=== PATIENT | male | born 1955 | race Caucasian/White ===

== ENCOUNTER 2018-11-20 04:27 | Inpatient (IN) ==
--- NOTE | 2018-11-20 05:03 | PROVIDER DOCUMENTATION ---
HPI-Neurological Disorder - General Chief Complaint: Stroke-Like Symptoms Stated Complaint: Poss Stroke Time Seen by Provider: 11/20/18 04:28 Source: patient Allergies/Adverse Reactions: Patient Allergies Allergy/AdvReac Type Severity Reaction Status Date / Time No Known Allergies Allergy Verified 05/17/18 19:29 Home Medications: Home Medication List Medication Instructions Recorded Confirmed Last Taken Type Sertraline [Zoloft] 100 mg PO DAILY 03/01/13 05/17/18 06/24/17 07:00 History Citalopram Hydrobromide 20 mg PO DAILY 06/24/17 05/17/18 06/24/17 07:00 History [Citalopram HBr] Fenofibrate,Micronized 134 mg PO QHS 06/24/17 05/17/18 06/23/17 20:00 History [Fenofibrate] Fosinopril Sodium [Monopril] 40 mg PO BID 06/24/17 05/17/18 06/24/17 07:00 History Rosuvastatin Calcium [Crestor] 20 mg PO QHS 06/24/17 05/17/18 06/23/17 20:00 History Amlodipine [Norvasc] 5 mg PO DAILY 05/17/18 05/17/18 Unknown History - History of Present Illness-Neuro Onset/Duration: reports: 1 hour ago Timing: reports: improving, other (ALL DEFICITS NEARLY RESOLVED BY 0455) Context: reports: other (pt reports prior TIAs. nl at bedtime 9pm. awoke 0350 with right side weakness. paramedics report 0400 near flaccid weakness RUE,RLE,RIGHT OWER FACE and slurred speech. improved during transport.pt reports he is out of lisinopril per dr Urbina.). denies: recent/heavy alcohol intake Approximate time patient was last seen normal?: 21:00 Any recent trauma/injury?: reports: none Character of Deficits: reports: new weakness, impaired speech, decreased ability to walk New weakness or altered sensation location:: reports: RUE, RLE, right facial Cognitive Baseline: alert, oriented x3 Gait Baseline: walks without assistance Associated Symptoms: reports: denies symptoms, slurred speech Review of Systems - Adult - REVIEW OF SYSTEMS - ADULT Constitutional: reports: no symptoms reported. denies: chills, fever Eyes: reports: no symptoms reported Ears, Nose, Mouth & Throat: reports: no symptoms reported Cardiovascular: reports: no symptoms reported Respiratory: reports: no symptoms reported Gastrointestinal: reports: no symptoms reported Genitourinary: reports: no symptoms reported Musculoskeletal: reports: no symptoms reported Integumentary: reports: no symptoms reported Neurological: reports: see HPI Psychiatric: reports: no symptoms reported (bipoloar, doing well of Zoloft), other Endocrine: reports: no symptoms reported Hematologic/Lymphatic: reports: no symptoms reported Allergic/Immunologic: reports: no symptoms reported All Other Systems: Reviewed and Negative Past History - Adult - PAST MEDICAL HISTORY-ADULT Review of Records: reports: Old Records Reviewed, Nursing Assessment Review, Medications Reviewed, Social history reviewed & non-contributory. Major Childhood Illnesses: reports: denies history Cardiovascular: reports: HTN, hyperlipidemia Respiratory: reports: denies history Gastrointestinal: reports: denies history Obstetrical/Gynecological: reports: denies history Genitourinary: reports: denies history Musculoskeletal: reports: denies history Neurological: reports: TIA Endocrine/Immune: reports: denies history Other Conditions: reports: denies history Physical Exam- Neurological - Physical Exam-Neuro Initial Vital Signs Reviewed: Yes (htn, 173/ after back from CT) General Appearance: appears well, alert, no apparent distress Eye Exam: bilateral eye: normal inspection, PERRL HENMT: normocephalic/atraumatic, moist mucous membranes Head Injury: no evidence of injury Neck: non-tender, full range of motion, supple Respiratory: lungs clear, normal breath sounds Cardiovascular: regular rate, rhythm, no edema, no gallop, no JVD, no murmur Abdominal Exam: non tender, soft Extremity: normal range of motion, 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 negative: abnormal speech, facial droop Motor/Sensory: no motor deficit, no sensory deficit Neurologic: ladies suit operator II-XII nml as tested, grossly normal, no motor/sensory deficits Integumentary: normal color, normal turgor Psych/Mental Status: normal mood/affect, normal thought content, normal thought process, oriented x 3 - Glascow Coma Scale Best Eye Response: (4) open spontaneously Best Verbal Response: (5) oriented Best Motor Response: (6) obeys commands (15) Progress - PLAN OF CARE/RESULTS Progress/Plan/Lab Results: Vital Signs - 8 hr 03/21/19 05:14 11/20/18 06:17 11/20/18 06:31 Temperature 97.7 F 98.3 F Pulse Rate 79 80 Respiratory Rate 17 16 Blood Pressure 179/109 214/122 202/127 O2 Sat by Pulse Oximetry 97 95 Laboratory Results - last 24 hr 11/20/18 11/20/18 11/20/18 04:57 04:57 04:57 WBC 7.55 RBC 4.73 Hgb 14.5 Hct 44.0 MCV 93.0 MCH 30.7 MCHC 33.0 RDW Std Deviation 13.7 Plt Count 250 MPV 10.2 Neut % (Auto) 66.6 Lymph % (Auto) 22.6 Phillips % (Auto) 8.5 Eos % (Auto) 1.9 Baso % (Auto) 0.4 Neut # (Auto) 5.03 Lymph # (Auto) 1.71 Phillips # (Auto) 0.64 H Eos # (Auto) 0.14 Baso # (Auto) 0.03 PT 12.8 INR 0.89 PTT (Actin FS) 31.0 Sodium 143 Potassium 3.4 L Chloride 106 Carbon Dioxide 23 L Anion Gap 14 BUN 19 Creatinine 1.4 H Estimated GFR/1.73 m2 51 BUN/Creatinine Ratio 14 Glucose 108 H Calculated Osmolality 288 Calcium 9.2 Troponin T 11/20/18 04:57 WBC RBC Hgb Hct MCV MCH MCHC RDW Std Deviation Plt Count MPV Neut % (Auto) Lymph % (Auto) Phillips % (Auto) Eos % (Auto) Baso % (Auto) Neut # (Auto) Lymph # (Auto) Phillips # (Auto) Eos # (Auto) Baso # (Auto) PT INR PTT (Actin FS) Sodium Potassium Chloride Carbon Dioxide Anion Gap BUN Creatinine Estimated GFR/1.73 m2 BUN/Creatinine Ratio Glucose Calculated Osmolality Calcium Troponin T < 0.010 Orders Category Date Time Status Cardiac Monitoring DIRECTED Care 11/20/18 04:52 Active Saline Loc NOW Care 11/20/18 04:52 Active CHEST-PORTABLE [RAD] Stat Exams 11/20/18 04:[address] HEAD W/O CONTRAST [CT] Stat Exams 11/20/18 04:31 Taken BMP [BASIC METABOLIC PANEL] [CHEM] Stat Lab 11/20/18 04:57 Completed CBC WITH ELECTRONIC DIFF [HEME] Stat Lab 11/20/18 04:57 Completed PROTIME WITH INR [COAG] Stat Lab 11/20/18 04:57 Completed PTT [COAG] Stat Lab 11/20/18 04:57 Completed TROPONIN T Stat Lab 11/20/18 04:57 Completed URINALYSIS W/POSS RFLX CULT [URINALYSIS] Stat Lab 11/20/18 04:53 Uncollected 0.9% Sodium Chloride Inj [Ns] 1,000 ml Med 11/20/18 06:00 Active IV 999 mls/hr Aspirin Med 11/20/18 06:00 Discontinued 325 mg PO NOW ONE Hydralazine [Apresoline] Med 11/20/18 06:33 Discontinued 10 mg IV NOW ONE Metoprolol Succinate E.r. [Toprol Xl] Med 11/20/18 06:00 Discontinued 25 mg PO NOW ONE Potassium Chloride 20% Liquid Med 11/20/18 06:04 Discontinued 40 meq PO NOW ONE EKG [EKG] Stat Ther 11/20/18 04:52 Ordered Result Diagrams: 11/20/18 04:57 11/20/18 04:57 - REASSESSMENT Reassessment #1 Time Reassessed: 06:01 Status: improving (continues without neuro deficit for 1 hr now. displayed almost complete resolution all weakness by 0500. [facility]) - EKG 1 Time of EKG reading by physician:: 06:15 EKG Read and Signed by:: Ramiro Stern Rate: 73 MA Interval: normal ST Wave: non-specific ST changes Comments: NSR,LVH,Nonspecific T waves - XRAY 1 XRAY Study: Chest Comparison with other Films: no changes - CT/MRI 1 CT Study: Head Impression: See EMR Report Comparison with other Films: no changes - CONSULTS/PCP/HOSPITALIST Notification #1 *Consult/PCP/Hospitalist*: DR WHITE Consult Disposition: Admit Departure - Departure Date of Disposition Decision: 11/20/18 Time of Disposition Decision: 06:42 DIAGNOSIS: TIA (transient ischemic attack), Hypertension Disposition: ADMITTED INPATIENT 09 Certified Medical Emergency: Emergent Condition: Stable Referrals and Follow-Ups: Shravan Urbina Jr, MD [Primary Care Provider] - - Critical Care Note This patient required my direct & personal management of CC.: No Attestation - Physician/ ASAD Attestation Patient care was provided by Advanced Practice Provider:: No The physician spent face to face time with patient:: Yes Advanced Practice Provider documentation review:: Supervising physician onsite and consulted in the evaluation and care of this patient. The physician did have a face to face encounter with the patient. - NIH Stroke Scale Level of Consciousness: 0-Alert LOC Questions (ask month and age): 0-Answers Both Correctly Best Gaze (horizontal eye movement): 0-Normal Visual (use finger movement, counting or visual threat): 0-No Visual Loss Facial Palsy (show teeth or raise eyebrows & close eyes tght: 0-Symmetrical Movement Motor Function-left arm: 0-Normal Motor Function-right arm: 0-Normal Motor Function-left le-Normal Motor Function-right le-Normal Limb Ataxia([id number], or heel to givens): 0-No Ataxia Sensory(pin prick to face,arms,trunk,legs-compare side/side): 0-No Ataxia Best Language(name item/read sentence.Ex-Down to Earth): 0-No Aphasia Dysarthria(Pt read words or say words Ex.Mama,Tip-Top,Thanks: 0-Normal Articulation Extinction and Inattention: 0-Normal NIH Total Score: 0 ((NIH as described by EMS at 0400 =13))
[2018-11-20 05:14] LABS: BASO# 0.03 X1000 (0.0-0.2); BASO% 0.4 % (0.0-0.8); EOS# 0.14 X1000 (0.0-0.7); EOS% 1.9 % (0.0-10.0); HEMOGLOBIN 14.5 g/dL (14.0-18.0); LYMPH# 1.71 X1000 (1.2-3.4); LYMPH% 22.6 % (20.5-51.1); MCH 30.7 PG (27-31); MONO# 0.64 X1000 (0.11-0.59); MONO% 8.5 % (1.7-9.3); MPV 10.2 FL (7.4-10.4); NEUT# 5.03 X1000 (1.4-6.5); NEUT% 66.6 % (42.2-75.2); PLT 250 X1000 (130-400); RBC 4.73 XMIL (4.7-6.1); RDW 13.7 % (11.5-14.5); WBC 7.55 X1000 (4.8-10.8)
[2018-11-20 05:22] LABS: CALCIUM 9.2 mg/dL (8.8-10.2); CREATININE 1.4 mg/dL (0.7-1.2); POTASSIUM 3.4 mmol/L (3.5-5.1)
[2018-11-20 05:29] LABS: INR 0.89; PROTIME 12.8 Seconds (11.0-16.0)
[2018-11-20] MEDS ORDERED: NS 1,000 ML IV ONE (06:00)
[2018-11-20] MEDS ORDERED: TOPROL XL PO ONE (06:00)
[2018-11-20] MEDS ORDERED: ASPIRIN PO ONE (06:00)
[2018-11-20] MEDS ORDERED: POTASSIUM CHLORIDE 20% LIQUID PO ONE (06:04)
[2018-11-20] MEDS ORDERED: APRESOLINE IV ONE (06:33)
--- NOTE | 2018-11-20 06:48 | Diag Imaging Result Doc PS360 ---
CHEST-PORTABLE - 11/20/2018 INDICATION: TIA COMPARISON: 05/17/2018 FINDINGS: The lungs are normally expanded and clear. Heart size and mediastinal contours are normal. No pneumothorax or pleural effusion. IMPRESSION: Negative exam. Electronically signed by Maximiliano Bauman 11/20/2018 6:46 AM
--- NOTE | 2018-11-20 06:56 | Diag Imaging Result Doc PS360 ---
EXAM: CT HEAD W/O CONTRAST 11/20/2018 HISTORY: poss stroke TECHNIQUE: This exam was performed using automated exposure control, adjustment of mA or kV according to patient size, and/or use of iterative reconstruction technique. COMMENT: There are calcifications in the vertebral and internal carotid arteries bilaterally. There are calcifications and an epidermoid in the falx. This has not changed significantly since 08/25/2010. There are patchy lucencies present in the white matter of both hemispheres with a subcortical lucency in the left parietal lobe which is more conspicuous than on the previous examination. There are similar lucencies in the frontal lobes which were apparently present at the time the previous study. There is somewhat worsened subcortical lucency in the anterior insula on the left. There is no evidence of mass effect or abnormal extra-axial fluid collection. The calvarium is intact. The paranasal sinuses are clear. IMPRESSION: Chronic ischemic white matter changes which have progressed slightly since 2009. No definite evidence of acute disease. Further evaluation with MRI may be desirable in view of the chronic ischemic changes to exclude the possibility of a small acute infarct. Electronically signed by Shravan Regan 11/20/2018 6:54 AM
[2018-11-20 06:57] LABS: URINE SOURCE CLEAN CATCH
[2018-11-20 07:01] LABS: BILIRUBIN URINE NEGATIVE (NEGATIVE); BLOOD URINE NEGATIVE (NEGATIVE); COLOR YELLOW; GLUCOSE URINE NEGATIVE (NEGATIVE); KETONE URINE NEGATIVE (NEGATIVE); LEUKOCYTES URINE MODERATE (NEGATIVE); NITRITE URINE NEGATIVE (NEGATIVE); PROTEIN URINE 30 mg/dL (NEGATIVE); SP GRAVITY URINE 1.002; TURBIDITY URINE HAZY (CLEAR); UROBILINOGEN URINE 3 mg/dL (NORMAL)
[2018-11-20 07:03] LABS: UR EPITHELIAL CELLS <10 /HPF (<10); URINE BACTERIA 3+ /HPF; URINE RBC <10 /HPF (<10); URINE WBC TNTC /HPF (<10)
--- NOTE | 2018-11-20 07:05 | EKG Report ---
Test Performed on : 11/20/2018 04:59:50 AM Test Reason : POSSIBLE STROKE Blood Pressure : / mmHG Vent. Rate : 073 BPM Atrial Rate : 073 BPM P-R Int : 138 ms QRS Dur : 106 ms QT Int : 400 ms P-R-T Axes : 058 -02 112 degrees QTc Int : 440 ms Normal sinus rhythm. Minimal voltage criteria for LVH, may be normal variant Nonspecific T wave abnormality Abnormal ECG When compared with ECG of 18-MAY-2018 00:35, Nonspecific T wave abnormality has replaced inverted T waves in Inferior leads Unconfirmed Result
--- NOTE | 2018-11-20 10:08 | HISTORY AND PHYSICAL ---
CHIEF COMPLAINT: Speech problems and weakness on the right side of body/ PRESENT ILLNESS: The patient tells me he has been without his psych medicines for some time now and he was in the hotel last night and knows that he felt weird when he went to the bathroom, felt very strange, felt some numbness on the right side of his body. He was lightheaded and may have been hyperventilating. Also felt like there was some weakness on the right side of his face. This lasted for few minutes and went away and then reoccurred. He cannot tell me exact times or durations of this. It occurred again and he actually went down in the floor, says he could not move. He got over that, got better, called 911 and had a 3rd attack and was brought to the emergency room. Apparently was already getting better when he came to the emergency room and according to the emergency room records had no focal signs except for some facial droop on the right side and some abnormal speech. Blood pressure was elevated up to 214/122. PAST MEDICAL HISTORY: 1. Bipolar illness. 2. Hypertension. 3. The patient had some confusion even talking with me and giving me details so I can't release give all his past history right now. HOME MEDICINES (WHICH HE HAS BEEN OUT OF): 1. Amlodipine 5 mg daily. 2. Celexa 20 mg daily. 3. Fenofibrate 134 mg daily for hyperlipidemia. 4. Fosinopril 40 mg p.o. b.i.d. 5. Crestor 20 mg daily. 6. Also had him listed is Zoloft but I do not think he takes both Zoloft and Celexa. ALLERGIES: He has no known drug allergies. REVIEW OF SYSTEMS: It was difficult to get that under neurological did say had the numbness and weakness on the right side of his face initially. I do not see any now. He has had some frontal headache. He has been very nervous. I did ask the patient if he had any problems with chest pains, heart palpitations he said no. He has had heartburn under GI. He has had no diarrhea or constipation. Endocrine: Denies any thyroid problems, pituitary problems or diabetes. OBJECTIVE: Blood pressure at its highest was 214/122, respirations 16, pulse 81, temperature 98.3 degrees Fahrenheit. HEENT: Normocephalic. PERRLA. Throat clear. Fundi not seen well. Neck: Supple without thyromegaly, lymphadenopathy, carotid bruits. Lungs: Clear to auscultation and percussion without rhonchi, rales, or wheezes. Heart: Regular rate and rhythm without murmurs, gallops, or friction rubs. Abdomen: Soft. Active bowel sounds. No organomegaly or tenderness. External Genitalia/Rectal: Deferred. Lymph Nodes: Not palpable in cervical or supraclavicular areas. Neurological: Cranial nerves 2-12 are intact grossly. Absent Babinski's. LABORATORY: White count 7550. Chemistry profile normal except for potassium of 3.4. He did have moderate leukocytes on his urinalysis with white blood cells too numerous to count, so I do think he has got a urinary tract infection. We will make sure he gets cultured and will start oral antibiotics. I have consulted Neurology. CT scan of the head was unrevealing. DIAGNOSES: 1. Probable cerebrovascular accident. 2. Hyperventilation. 3. Urinary tract infection. 4. Hypertension uncontrolled. 5. Hypokalemia. PLAN: 1. We will do a CVA workup, have consulted Neurology. 2. We will start on IV antibiotics. 3. Please see orders. cc: Shravan Urbina Jr, MD
[2018-11-20] MEDS: ROCEPHIN 1 GM in NS 50 ML IV SCH ×2 (11:44→20:07)
[2018-11-20] MEDS: NORVASC PO SCH (11:45)
[2018-11-20] MEDS: MONOPRIL PO SCH ×2 (11:45→20:07)
[2018-11-20] MEDS: CELEXA PO SCH (11:46)
[2018-11-20] MEDS: KLOR-CON PO SCH (11:46)
--- NOTE | 2018-11-20 14:08 | CONSULTATION ---
DATE OF CONSULTATION: 11/20/2018 NEUROLOGY CONSULTATION: Mr. Dorsey is 63 years old, and he reports numbness in the right limbs and face beginning last night. He had gone to bed, feeling well. He got up in the night to go the bathroom and noticed numbness involving the right limbs and face. After he returned to bed, he had a sense that he could not move his right limbs. He attempted to get out of bed and fell. Initially, he reports being unable to crawl to the telephone, but eventually he got to the phone and called 911. He reports being aware his speech was slurred. When the paramedics arrived, he reports having trouble understanding some of what they said. Right- sided weakness improved and then was worse again and then began to improve again. By the time he was evaluated in the emergency room, he was much, much improved. He has not had any further deterioration, but believes he has not yet completely recovered to baseline. Vision was blurred, but there was no focal loss of visual field or diplopia. He did not lose consciousness. He had intense headache during this episode, and headache is improved now. He reports occasional intense headache, often associated with elevated blood pressure. At least once in the past, he believes he had brief period of right-sided numbness associated with intense headache, but he cannot tell me precisely when that occurred. There is no history of serious head injury. He has not had previous diagnosed stroke, seizure, or other neurologic event. He reports "heat stroke" as a young adult, and he believes that may have also caused weakness or numbness on the right side more than the left. He reports he stopped all of his medicines about 10 months ago. He denies illicit drug use. He denies recent significant ethanol use. He does smoke cigarettes. He presented this time with systolic blood pressures greater than 200. Recent hours show systolic blood pressures 140s. He has been afebrile. Lab showed some minor findings on chemistry profile, but nothing remarkable and nothing that would explain his neurologic problem. There is evidence of UTI. We do not have urine drug screen this admission. Noncontrast CT of the head on presentation showed scattered ischemic white matter changes bilaterally, reported to have progressed slightly since 2009 scan which is not available for my view. PHYSICAL EXAMINATION: On exam, Mr. Dorsey is awake, alert, attentive. He seems appropriate. Speech is not dysarthric now. Language function is intact on careful bedside testing of repeating, naming, comprehension, fluency, reading. I did not test handwriting. Memory is good. Head and neck are unremarkable. Visual [place] are full now, tested grossly by confrontational finger counting. Extraocular movements are full. He reports good pinprick appreciation on the left and right face. Facial motility is good bilaterally. The right nasolabial fold is a little bit less prominent than the left, but there is good lower facial motility bilaterally. Gag is intact. Tongue is midline. Shoulder shrug is good bilaterally. Strength is normal in the arms and legs. He did well on [id number] testing bilaterally. He did well on [id number] testing bilaterally. He reports equal pinprick and light touch appreciation over the right and left limbs. Proprioception is normal at the great toe MTP joint bilaterally. Reflexes are 2+ at the knees and ankles, 1+ at the wrists, all symmetric. Plantar response is silent bilaterally. I did not test his gait. IMPRESSION: Reported right-sided weakness and numbness with dysarthria and possible transient dysphasia. Vision disturbance is uncertain. He presented with intense headache and very high blood pressure. Risk factors for cerebrovascular ischemic event include age, cigarette smoking, and untreated hypertension. Negative CT is reassuring, but does not exclude acute ischemic infarction. Would consider MRI and plan carotid imaging with ultrasound or CT angiogram, also consider echocardiogram. He will need DVT prophylaxis until he is ambulatory. I would treat blood sugar aggressively, treat lipids aggressively, continue aspirin, treat blood pressure cautiously to maintain adequate systolic blood pressures until we get vascular workup reported. Thanks for asking Neurology to see Mr. Dorsey. cc: MD Shravan Hughes III, Jr, MD MTDD
[2018-11-20] MEDS: LOVENOX SUBQ SCH (17:19)
[2018-11-20] MEDS: TRICOR PO SCH (20:07)
[2018-11-20] MEDS: CRESTOR PO SCH (20:07)
--- NOTE | 2018-11-20 23:32 | ECHO REPORT ---
ORDER DATE: 11/20/2018 MEASUREMENTS: Septal thickness 1.3; left ventricular internal diameter in diastole 5.0; posterior wall thickness 1.3; aortic root 3.8; left atrium 5.5. SUMMARY: 1. Fair quality study. 2. The aortic valve is trileaflet and opens normally on 2-dimensional images. Mitral, tricuspid and pulmonic valves are without evidence of structural abnormality, with trace tricuspid regurgitation and trace pulmonic insufficiency. The aortic root is normal in size. 3. Normal left ventricular chamber size with mild concentric left ventricular hypertrophy demonstrated. Estimated left ventricular ejection fraction appears to be at least 60%. No regional wall abnormalities evident. Doppler suggests grade 1 left ventricular diastolic dysfunction. The left atrium is moderately enlarged. Right atrium and right ventricle are normal in size, with grossly preserved right ventricular systolic function. 4. No pericardial effusion. 5. Appearance of the inferior vena cava suggests normal central venous pressure. cc: MD Shravan Myers Jr, MD
[2018-11-21] MEDS: LOVENOX SUBQ SCH ×2 (05:31→16:27)
[2018-11-21] MEDS ORDERED: ASPIRIN PO ONE (08:30)
[2018-11-21] MEDS: KLOR-CON PO SCH (09:23)
[2018-11-21] MEDS: ROCEPHIN 1 GM in NS 50 ML IV SCH ×2 (09:23→21:11)
[2018-11-21] MEDS: CELEXA PO SCH (09:24)
[2018-11-21] MEDS: NORVASC PO SCH (09:24)
[2018-11-21] MEDS: MONOPRIL PO SCH ×2 (09:24→21:11)
--- NOTE | 2018-11-21 09:33 | PROGRESS NOTE ---
DATE: 11/21/2018 SUBJECTIVE: The patient says he just does not feel quite right yet. He does have a little weakness on the right side of his face. He says he feels weak in his right arm and his right leg. OBJECTIVE: Vital Signs: Blood pressure 134/88, respirations 18, pulse 59 and regular, 98.2 degrees Fahrenheit. HEENT: Normocephalic, except for a little weakness in the right side of his lower face. Neck: Supple. Lungs: Clear to auscultation and percussion without rhonchi, rales, or wheezes. Heart: Regular rate and rhythm without murmurs, gallops, friction rubs. Abdomen: Soft. Active bowel sounds. No organomegaly or tenderness. Neurological: Patient seems to have a little weakness on the right side of his body. DIAGNOSTICS: Echocardiogram was essentially normal. We will get an MRI scan of his brain, carotid flow studies, results are pending. ASSESSMENT: 1. Probable cerebrovascular accident. 2. Major depression, chronic. 3. Possible urinary tract infection. Urine culture was negative though he had white blood cells too numerous to count. Will repeat a urinalysis as he has been on some antibiotics. cc: Shravan Urbina Jr, MD
--- NOTE | 2018-11-21 10:52 | Diag Imaging Result Doc PS360 ---
EXAM: MRI BRAIN W/WO CONTRAST INDICATION: cva COMPARISON: CT head dated 11/20/2018. No prior brain MRIs available for comparison. FINDINGS: There is a small focus of restricted diffusion involving the posterior parietal lobe on the left in the subcortical white matter indicating an acute infarct. There is also increased signal on diffusion involving the putamen on the left as well as the caudate tail on the left. There is only slight corresponding low signal on the ADC map in the left putamen and left caudate regions suggesting an a late acute infarct/early subacute infarct. There is patchy T2/FLAIR hyperintensity in the periventricular and subcortical white matter suggesting moderate white matter microangiopathy. 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 This has been seen on previous CTs and is stable. There is an 8 mm enhancing nodule at the base of the brain just to the left of midline anteriorly abutting the gyrus rectus that can be seen on image 112 of series 10. This probably represents a small meningioma. There is no other discrete intracranial mass, mass effect, or intracranial hemorrhage. The surrounding soft tissues and bony structures are essentially unremarkable. IMPRESSION: 1.Recent lacunar infarcts involving the left parietal lobe, left putamen, and left caudate as described above. 2.Incidental pericallosal lipoma. 3.Small enhancing nodule at the base of the brain anteriorly as described that probably represents a tiny meningioma. Electronically signed by Francis Cook 11/21/2018 10:50 AM
--- NOTE | 2018-11-21 11:33 | PROGRESS NOTE ---
DATE: 11/21/2018 SUBJECTIVE: Mr. Dorsey reports no new problems. He believes the right- sided weakness is a little bit better. He is certain he is not completely recovered to baseline. He has not had more headaches. MRI scan shows 3 subcortical small areas of restricted diffusion in the left hemisphere consistent with his right sided deficit. Echocardiogram made no mention of source of embolus. Systolic blood pressures have been stable in the 130s, and he seems to be tolerating that level. Carotid ultrasound has been done with report pending. Further plans will depend on that report, and on his clinical course, but I expect he will continue to recover. I encouraged him to be aggressive with his physical therapy, and to make sure he takes his medicines as directed. Again, I encouraged him to quit smoking cigarettes. cc: MD Shravan Hughes III, Jr, MD MTDD
--- NOTE | 2018-11-21 14:42 | Carotid Study ---
DATE: 11/20/2018 PROCEDURE: Bilateral carotid ultrasound study. REQUESTING PHYSICIAN: Elizabeth Covarrubias. INTERPRETING PHYSICIAN: Toi Barraza MD. TECH: Pankaj. INDICATIONS: CVA. EQUIPMENT: Fileforceid E9 ultrasound system with a 9LD transducer. OBSERVED DATA RIGHT LEFT Brachial Blood Pressure Carotid Pulse Bruits: Carotid/Sub DIAGRAM OF ULTRASOUND IMAGING R L RIGHT INT EXT INT EXT LEFT Doroteo (cm/s) Doroteo (cm/s) Subclavian 94/0 Subclavian 140/0 CCA Proximal 77/20 CCA Proximal 94/26 CCA Distal 66/17 CCA Distal 72/22 Bulb 60/17 Bulb 75/21 ICA Proximal 52/12 ICA Proximal 52/15 ICA Mid 57/20 ICA Mid 73/24 ICA Distal 70/27 ICA Distal 63/22 ECA 99/23 ECA 79/21 Vertebral 60/13 A Vertebral 35/12 A ICA/CCA Ratio 0.91 ICA/CCA Ratio 0.78 % Stenosis 0-39% % Stenosis 0-39% FINDINGS: Minimal atherosclerosis, which at this time does not produce a hemodynamically significant flow-limiting stenosis. Both vertebral arteries are antegrade flow. PHYSICIAN INTERPRETATION: By strict velocity criteria, no hemodynamically significant flow- limiting stenosis. cc: MD Shravan Toscano Jr, MD
[2018-11-21] MEDS: TYLENOL PO PRN (17:00)
[2018-11-21 17:10] LABS: URINE SOURCE CLEAN CATCH
[2018-11-21 17:27] LABS: BILIRUBIN URINE NEGATIVE (NEGATIVE); BLOOD URINE NEGATIVE (NEGATIVE); COLOR YELLOW; GLUCOSE URINE NEGATIVE (NEGATIVE); KETONE URINE NEGATIVE (NEGATIVE); LEUKOCYTES URINE MODERATE (NEGATIVE); NITRITE URINE NEGATIVE (NEGATIVE); PROTEIN URINE 30 mg/dL (NEGATIVE); SP GRAVITY URINE 1.018; TURBIDITY URINE CLEAR (CLEAR); UROBILINOGEN URINE NORMAL (NORMAL)
[2018-11-21 17:28] LABS: UR EPITHELIAL CELLS <10 /HPF (<10); URINE BACTERIA NEGATIVE /HPF; URINE RBC <10 /HPF (<10); URINE WBC TNTC /HPF (<10)
[2018-11-21] MEDS: CRESTOR PO SCH (21:12)
[2018-11-21] MEDS: TRICOR PO SCH (21:12)
[2018-11-22] MEDS: LOVENOX SUBQ SCH ×2 (05:30→17:27)
[2018-11-22] MEDS: TYLENOL PO PRN ×2 (06:42→20:01)
--- NOTE | 2018-11-22 06:47 | PROGRESS NOTE ---
DATE: 11/22/2018 SUBJECTIVE: The patient says he does not feel any better. Still feels weak on the right side of his body. OBJECTIVE: Vital Signs: Blood pressure is 169/95, respirations 14, pulse 53, 97.6 degrees Fahrenheit. HEENT: Normocephalic. EOMS intact. PERRLA. Throat clear. Lungs: Clear to auscultation and percussion without rhonchi, rales, or wheezes. Heart: Regular rate and rhythm without murmurs, gallops, friction rubs. Abdomen: Soft. Active bowel sounds. No organomegaly or tenderness. I cannot really detect a much weakness in the right side of his body on exam but subjectively he says he is not as strong. Urine again shows WBCs too numerous to count. We will continue the antibiotics for right now even though his urine culture was negative initially. Another culture is pending. RADIOLOGY: MRI scan did show left-sided stroke consistent with the weakness in the right side of his body. ASSESSMENT: 1. CVA. 2. Depression. 3. Possible urinary tract infection. PLAN: Continue support. Start physical therapy. cc: Shravan Urbina Jr, MD
[2018-11-22 07:34] LABS: BASO# 0.04 X1000 (0.0-0.2); BASO% 0.6 % (0.0-0.8); EOS# 0.11 X1000 (0.0-0.7); EOS% 1.6 % (0.0-10.0); HEMATOCRIT 45.1 % (42.0-52.0); HEMOGLOBIN 14.5 g/dL (14.0-18.0); LYMPH# 2.08 X1000 (1.2-3.4); LYMPH% 30.4 % (20.5-51.1); MCHC 32.2 g/dL (33-37); MCV 93.4 FL (81-99); MONO# 0.56 X1000 (0.11-0.59); MONO% 8.2 % (1.7-9.3); MPV 10.6 FL (7.4-10.4); NEUT# 4.05 X1000 (1.4-6.5); NEUT% 59.2 % (42.2-75.2); PLT 249 X1000 (130-400); RBC 4.83 XMIL (4.7-6.1); RDW 13.4 % (11.5-14.5); WBC 6.84 X1000 (4.8-10.8)
[2018-11-22 08:00] LABS: CREATININE 1.3 mg/dL (0.7-1.2); POTASSIUM 3.9 mmol/L (3.5-5.1)
[2018-11-22] MEDS: KLOR-CON PO SCH (08:40)
[2018-11-22] MEDS: MONOPRIL PO SCH ×2 (08:41→20:01)
[2018-11-22] MEDS: CELEXA PO SCH (08:41)
[2018-11-22] MEDS: ROCEPHIN 1 GM in NS 50 ML IV SCH ×2 (08:41→20:01)
[2018-11-22] MEDS: NORVASC PO SCH (08:41)
[2018-11-22] MEDS: CRESTOR PO SCH (20:01)
[2018-11-22] MEDS: TRICOR PO SCH (20:01)
[2018-11-23] MEDS: LOVENOX SUBQ SCH ×2 (05:33→17:55)
[2018-11-23 07:15] LABS: BASO# 0.04 X1000 (0.0-0.2); BASO% 0.6 % (0.0-0.8); EOS% 1.4 % (0.0-10.0); HEMATOCRIT 45.7 % (42.0-52.0); HEMOGLOBIN 14.8 g/dL (14.0-18.0); LYMPH# 1.94 X1000 (1.2-3.4); LYMPH% 27.4 % (20.5-51.1); MCH 30.1 PG (27-31); MCHC 32.4 g/dL (33-37); MCV 92.9 FL (81-99); MONO# 0.56 X1000 (0.11-0.59); MONO% 7.9 % (1.7-9.3); MPV 10.4 FL (7.4-10.4); NEUT# 4.43 X1000 (1.4-6.5); NEUT% 62.7 % (42.2-75.2); PLT 250 X1000 (130-400); RBC 4.92 XMIL (4.7-6.1); RDW 13.1 % (11.5-14.5); WBC 7.07 X1000 (4.8-10.8)
[2018-11-23 07:53] LABS: AGAP 13; BUN 20 mg/dL (8-22); CALCIUM 8.7 mg/dL (8.8-10.2); CHLORIDE 106 mmol/L (98-107); COSMO 289; CREATININE 1.2 mg/dL (0.7-1.2); ESTIMATED GFR > 60; GLUCOSE 98 mg/dL (70-104); POTASSIUM 4.2 mmol/L (3.5-5.1); SODIUM 144 mmol/L (136-145); TCO2 25 mmol/L (25-35)
[2018-11-23] MEDS: ROCEPHIN 1 GM in NS 50 ML IV SCH ×2 (10:12→21:58)
[2018-11-23] MEDS: KLOR-CON PO SCH (10:13)
[2018-11-23] MEDS: MONOPRIL PO SCH ×2 (10:13→21:58)
[2018-11-23] MEDS: NORVASC PO SCH (10:13)
[2018-11-23] MEDS: CELEXA PO SCH (10:13)
--- NOTE | 2018-11-23 12:55 | PROGRESS NOTE ---
DATE: 11/23/2018 SUBJECTIVE: The patient states he still feels very weak. He appears scared. I asked him about that, and this has bothered him psychologically that he has had a stroke. He says he is just still so weak, and yet he got up and walked with a walker and did not drag his leg, and he is feeding himself with his right arm with a fork, so he has fine motor control. He seems to have good strength. Initially, he told me he just had tingling there and not quite so much weakness. I have tried to encourage him. His carotid flow studies did show some minimal plaque bilaterally, nothing hemodynamically significant. OBJECTIVE: Vital Signs: Blood pressure is 144/76, respirations 18, pulse 89, temperature 98 degrees Fahrenheit. HEENT: Normocephalic. EOMS intact. PERRLA. Throat clear. Lungs: Clear to auscultation and percussion without rhonchi, rales, or wheezes. Heart: Regular rate and rhythm without murmurs, gallops, or friction rubs. Abdomen: Soft with active bowel sounds. No organomegaly or tenderness. Neurological: Essentially intact. He says he feels subjectively weak on the right side of his body, though on physical exam, he appears fairly normal. ASSESSMENT: 1. Cerebrovascular accident. 2. Depression. 3. Peripheral vascular disease. PLAN: Continue treatment and physical therapy. cc: Shravan Urbina Jr, MD
[2018-11-23] MEDS: TRICOR PO SCH (21:58)
[2018-11-23] MEDS: TYLENOL PO PRN (21:58)
[2018-11-23] MEDS: CRESTOR PO SCH (21:58)
[2018-11-24] MEDS: LOVENOX SUBQ SCH ×2 (05:48→16:55)
[2018-11-24 07:30] LABS: BASO# 0.04 X1000 (0.0-0.2); BASO% 0.6 % (0.0-0.8); EOS# 0.09 X1000 (0.0-0.7); EOS% 1.4 % (0.0-10.0); HEMATOCRIT 46.2 % (42.0-52.0); HEMOGLOBIN 15.1 g/dL (14.0-18.0); LYMPH# 1.74 X1000 (1.2-3.4); LYMPH% 27.1 % (20.5-51.1); MCH 30.3 PG (27-31); MCHC 32.7 g/dL (33-37); MCV 92.6 FL (81-99); MONO# 0.48 X1000 (0.11-0.59); MONO% 7.5 % (1.7-9.3); MPV 10.4 FL (7.4-10.4); NEUT# 4.06 X1000 (1.4-6.5); NEUT% 63.4 % (42.2-75.2); PLT 251 X1000 (130-400); RBC 4.99 XMIL (4.7-6.1); RDW 13.2 % (11.5-14.5); WBC 6.41 X1000 (4.8-10.8)
[2018-11-24 07:48] LABS: CREATININE 1.3 mg/dL (0.7-1.2); POTASSIUM 4.2 mmol/L (3.5-5.1)
--- NOTE | 2018-11-24 09:01 | PROGRESS NOTE ---
DATE: 11/24/2018 SUBJECTIVE: The patient still feels weak on the right side of his body. Physical Therapy has been working with him. OBJECTIVE: Blood pressure is 149/83, respirations 20, pulse 55, and temperature 97.7 degrees Fahrenheit.HEENT: Normocephalic. EOMs intact. PERRLA. Throat clear. Lungs: Clear to auscultation and percussion without rhonchi, rales, or wheezes. Heart: Regular rate and rhythm without murmurs, gallops, or friction rubs. Abdomen: Soft. Active bowel sounds. No organomegaly or tenderness. Neurological: The patient is more alert today and less depressed appearing. He does seem to have a little weakness on the right side of his body that I can tell compared with the left side a little better today than previously. ASSESSMENT: 1. CVA. 2. Depression. PLAN: We will continue to work with physical therapy. We will consult [employer] for possible rehab placement. cc: Shravan Urbina Jr, MD
[2018-11-24] MEDS: CELEXA PO SCH (10:09)
[2018-11-24] MEDS: NORVASC PO SCH (10:10)
[2018-11-24] MEDS: MONOPRIL PO SCH ×2 (10:10→21:37)
[2018-11-24] MEDS: ROCEPHIN 1 GM in NS 50 ML IV SCH ×2 (10:10→21:37)
[2018-11-24] MEDS: KLOR-CON PO SCH (10:10)
[2018-11-24] MEDS: TRICOR PO SCH (21:37)
[2018-11-24] MEDS: CRESTOR PO SCH (21:37)
[2018-11-25] MEDS: LOVENOX SUBQ SCH ×2 (05:02→18:48)
[2018-11-25] MEDS: ROCEPHIN 1 GM in NS 50 ML IV SCH ×2 (08:28→21:38)
[2018-11-25] MEDS: CELEXA PO SCH (08:29)
[2018-11-25] MEDS: KLOR-CON PO SCH (08:29)
[2018-11-25] MEDS: NORVASC PO SCH (08:29)
[2018-11-25] MEDS: MONOPRIL PO SCH ×2 (08:29→21:38)
--- NOTE | 2018-11-25 09:25 | PROGRESS NOTE ---
DATE: 11/25/2018 SUBJECTIVE: The patient says he feels about the same. He still has some weakness on the right side of his body. This seems to be slight on examination but he can still tell a difference. OBJECTIVE: Vital signs: Blood pressure 130/76, respirations 18, pulse 51, temperature 97.6 degrees Fahrenheit, oxygen saturation is 95% on room air. HEENT: Normocephalic. EOMS intact. PERRLA. Throat clear. Lungs: Clear to auscultation and percussion without rhonchi, rales, or wheezes. Heart: Regular rate and rhythm without murmurs, gallops, friction rubs. Abdomen: Soft. Active bowel sounds. No organomegaly or tenderness. Neurological: The patient has slight weakness on the right side of his body. ASSESSMENT: Cerebrovascular accident. PLAN: Continue physical therapy. Working on rehab placement. cc: Shravan Urbina Jr, MD
[2018-11-25] MEDS: TRICOR PO SCH (21:38)
[2018-11-25] MEDS: CRESTOR PO SCH (21:38)
[2018-11-26] MEDS: LOVENOX SUBQ SCH ×2 (04:25→16:37)
--- NOTE | 2018-11-26 08:08 | EKG Report ---
Test Performed on : 11/26/2018 06:48:23 AM Test Reason : bradycardia Blood Pressure : / mmHG Vent. Rate : 049 BPM Atrial Rate : 049 BPM P-R Int : 166 ms QRS Dur : 106 ms QT Int : 470 ms P-R-T Axes : 058 013 138 degrees QTc Int : 424 ms Sinus bradycardia. Minimal voltage criteria for LVH, may be normal variant T wave abnormality, consider lateral ischemia Abnormal ECG When compared with ECG of 20-NOV-2018 04:59, (Unconfirmed) Vent. rate has decreased BY 24 BPM Unconfirmed Result
[2018-11-26] MEDS: CELEXA PO SCH (09:09)
[2018-11-26] MEDS: KLOR-CON PO SCH (09:09)
[2018-11-26] MEDS: NORVASC PO SCH (09:09)
[2018-11-26] MEDS: ROCEPHIN 1 GM in NS 50 ML IV SCH ×2 (09:09→22:29)
[2018-11-26] MEDS: MONOPRIL PO SCH ×2 (09:09→22:29)
--- NOTE | 2018-11-26 09:53 | PROGRESS NOTE ---
DATE: 11/26/2018 SUBJECTIVE: The patient says he just has not felt good; he has felt tired and sluggish. This is after a CVA. He has been somewhat bradycardic, but has been that way most the time since he has been in the hospital. Pulse rate got down to 49. EKG shows a sinus bradycardia. Otherwise is normal. He has had no chest pains or heart palpitations. I do not know whether this is contributed to his feeling sluggish or not. His blood pressure is good at this point. OBJECTIVE: Vital Signs: Blood pressure is 124/69, respirations 16, pulse 49, temperature 98.3 degrees Fahrenheit. Oxygen saturation is 99% on room air. HEENT: Normocephalic. EOMS intact. PERRLA. Throat clear. Lungs: Clear to auscultation and percussion without rhonchi, rales, or wheezes. Heart: Bradycardic without murmurs, gallops, or friction rubs. Neurologic exam: Still has a little weakness in the right side of his body. Physical therapy is working with him. ASSESSMENT: 1. Left hemisphere cerebrovascular accident with right-sided weakness. 2. Depression. 3. Bradycardia, which may be his normal. PLAN: We will get an echocardiogram. Working on rehab placement. Will check office notes to see if he has had this bradycardia in the past. cc: Shravan Urbina Jr, MD
--- NOTE | 2018-11-26 11:25 | PROGRESS NOTE ---
DATE: 11/26/2018 SUBJECTIVE: Mr. Dorsey reports continued slow improvement with his right- sided weakness. He has documented recent acute left hemisphere infarction on MRI. He reports he is making some progress with physical therapy, but reports he is still not walking well enough to feel good about his independence. OBJECTIVE: Neurologic: He is awake, alert, attentive. He seems to be in a little bit better spirits right now. Speech is not significantly dysarthric. Language function is intact. I cannot find definite weakness in the arms. He did well on [id number] testing. Visual [place] remain full on gross confrontational testing. I did not test his gait today. IMPRESSION: Recent dominant left hemisphere infarction, relatively pure motor right hemiparesis, stable and improving clinically. I do not have any new suggestions from a neurologic standpoint. I encouraged him to be aggressive with his physical therapy. I agree with Dr. Urbina' plans. I do not have anything to add today from a neurologic standpoint. Thanks for asking Neurology to see Mr. Dorsey. cc: MD Shraavn Hughes III, Jr, MD MTDD
[2018-11-26] MEDS: TRICOR PO SCH (22:29)
[2018-11-26] MEDS: CRESTOR PO SCH (22:29)
[2018-11-27] MEDS: LOVENOX SUBQ SCH ×2 (04:35→16:17)
[2018-11-27] MEDS: CELEXA PO SCH (08:49)
[2018-11-27] MEDS: KLOR-CON PO SCH (08:50)
[2018-11-27] MEDS: MONOPRIL PO SCH ×2 (08:50→21:33)
[2018-11-27] MEDS: ROCEPHIN 1 GM in NS 50 ML IV SCH ×2 (08:51→21:33)
[2018-11-27] MEDS: NORVASC PO SCH (08:51)
--- NOTE | 2018-11-27 09:20 | PROGRESS NOTE ---
DATE: 11/27/2018 SUBJECTIVE: The patient says he feels maybe a little stronger with his legs. He walked better yesterday. He still feels like he is weak on the right side of his body. OBJECTIVE: Vital Signs: Blood pressure 135/92, respirations 18, pulse 49, temperature 97.4 degrees Fahrenheit. Have looked back at old records, and he has had episodes before where in the office his pulse rate was around 50. I think this is probably his normal for the most part. Echocardiogram had been done earlier during his visit so we cancelled one yesterday, it was normal. He has had no symptoms with this. HEENT: Normocephalic. EOMs intact. PERRLA. Throat clear. Lungs: Clear to auscultation and percussion without rhonchi, rales, or wheezes. Heart: Regular rate and rhythm without murmurs, gallops, friction rubs. Abdomen: Soft. Active bowel sounds. No organomegaly or tenderness. Neurological: Has some subjective weakness on the right side of his body. If there is any weakness there, it is very slight on my examination. ASSESSMENT: 1. Cerebrovascular accident. 2. Bipolar illness. 3. Hypertension. PLAN: Working on rehab placement. Will continue physical therapy. cc: Shravan Urbina Jr, MD
[2018-11-27] MEDS: CRESTOR PO SCH (21:33)
[2018-11-27] MEDS: TRICOR PO SCH (21:33)
[2018-11-28] MEDS: LOVENOX SUBQ SCH (05:06)
[2018-11-28] MEDS: ROCEPHIN 1 GM in NS 50 ML IV SCH (09:22)
[2018-11-28] MEDS: CELEXA PO SCH (09:22)
[2018-11-28] MEDS: MONOPRIL PO SCH (09:23)
[2018-11-28] MEDS: KLOR-CON PO SCH (09:23)
[2018-11-28] MEDS: NORVASC PO SCH (09:23)
--- NOTE | 2018-11-28 10:30 | DISCHARGE SUMMARY ---
ADMISSION DATE: 11/20/2018 DISCHARGE DATE: 11/28/2018 Patient going to rehab. FINAL DIAGNOSIS: 1. Cerebrovascular accident affecting right side of body. 2. Bipolar illness. 3. Hyperlipidemia. 4. Hypertension. 5. Hypokalemia now resolved. PRESENT ILLNESS: The patient is a 63-year-old white male, came in with some speech problems and weakness on the right side of his body. The speech problems resolved fairly quickly. He had some numbness on the right side of his body and he perceives a little right-sided weakness, though this seems to be very minor at this time. It has been however constant since he has been in the hospital. Consultation was made with Dr. Zuniga, neurologist. MRI scan showed recent lacunar infarcts involving the left parietal lobe, left putamen, and left caudate. 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 The patient has continued to do well. Bipolar illness seems to be under good control with his medications. PHYSICAL EXAMINATION: Vital signs show pulse of 48. He has been bradycardic in the past and has not had any hypotension with this. Blood pressure is 146/63, respirations 16, temperature 97.5 degrees Fahrenheit, oxygen saturation is 99% on room air. HEENT: Normocephalic. EOMs intact. PERRLA. Throat clear. Lungs: Clear to auscultation and percussion without rhonchi, rales, or wheezes. Heart: Regular rate and rhythm without murmurs, gallops, or friction rubs, just sinus bradycardia. Abdomen: Soft with active bowel sounds. No organomegaly or tenderness. Neurological: Exam intact grossly. He perceives a little weakness on the right side of his body. His right lug loader is about the same as his left but he is right handed and probably was generally a little stronger on that side before. MEDICATIONS: Will discharge on his Tricor 145 mg daily, Crestor 20 mg at bedtime, amlodipine 5 mg daily, Celexa 20 mg at bedtime, fosinopril 40 mg at bedtime, and will put him on an adult size aspirin 325 mg daily. Will go to rehab, and I will see him when he gets out of rehab. cc: Shravan Urbina Jr, MD
[2018-11-28 14:08] VITALS: BP 136/78
== END 2018-11-28 15:12 | DRG 65 ==
LOC: SUPCPDRO → ED 04:27 → 3N 08:08
PROVIDERS: ADMIT Emergency Medicine; ATTEND Emergency Medicine
CPT/HCPCS: 70450; 70553; 71010; 71045; 80048; 81001; 82607; 84484; 85025; 85610; 85651; 85730; 87088; 93005; 93010; 93306; 93880; 96374; 97116; 97162; 97530; 99285; A9270; A9579; C8929; J0360; J0696; J1650; J7030; Q9957

== ENCOUNTER 2019-04-25 15:39 | Inpatient (IN) ==
[2019-04-25] MEDS ORDERED: NS 1,000 ML IV ONE ×2 (15:54→19:05)
--- NOTE | 2019-04-25 16:10 | Diag Imaging Result Doc PS360 ---
CHEST-PORTABLE - 04/25/2019 INDICATION: chest pain COMPARISON: 11/20/2018 FINDINGS: The lungs are normally expanded and clear. Heart size and mediastinal contours are normal. No pneumothorax or pleural effusion. IMPRESSION: Negative exam. Electronically signed by Maximiliano Bauman 04/25/2019 4:07 PM
[2019-04-25 16:13] LABS: BASO# 0.03 X1000 (0.0-0.2); BASO% 0.3 % (0.0-0.8); EOS# 0.14 X1000 (0.0-0.7); EOS% 1.3 % (0.0-10.0); HEMATOCRIT 45.6 % (42.0-52.0); HEMOGLOBIN 15.8 g/dL (14.0-18.0); LYMPH% 25.2 % (20.5-51.1); MCH 30.9 PG (27-31); MCHC 34.6 g/dL (33-37); MCV 89.2 FL (81-99); MONO# 0.91 X1000 (0.11-0.59); MONO% 8.5 % (1.7-9.3); MPV 10.8 FL (7.4-10.4); NEUT# 6.94 X1000 (1.4-6.5); NEUT% 64.7 % (42.2-75.2); PLT 291 X1000 (130-400); RBC 5.11 XMIL (4.7-6.1); WBC 10.72 X1000 (4.8-10.8)
[2019-04-25 16:30] LABS: ALB/GLOB RATIO 1.6; ALBUMIN 4.6 g/dL (3.5-5.0); CALCIUM 9.4 mg/dL (8.8-10.2); CREATININE 2.8 mg/dL (0.7-1.2); POTASSIUM 3.5 mmol/L (3.5-5.1); TOTAL BILIRUBIN 0.92 mg/dL (0.20-1.00); TOTAL PROTEIN 7.4 g/dL (6.3-8.3)
--- NOTE | 2019-04-25 17:03 | EKG Report ---
Test Performed on : 04/25/2019 3:38:02 PM Test Reason : chest pain Blood Pressure : / mmHG Vent. Rate : 063 BPM Atrial Rate : 063 BPM P-R Int : 150 ms QRS Dur : 106 ms QT Int : 406 ms P-R-T Axes : 056 -11 103 degrees QTc Int : 415 ms Normal sinus rhythm. Minimal voltage criteria for LVH, may be normal variant T wave abnormality, consider lateral ischemia Abnormal ECG When compared with ECG of 26-NOV-2018 06:48, T wave inversion less evident in Lateral leads Unconfirmed Result
[2019-04-25 17:40] LABS: CK INDEX 1.4 (0.0-2.5); CK-MB 10.5 ng/mL (0.0-5.0)
--- NOTE | 2019-04-25 18:49 | EKG Report ---
Test Performed on : 04/25/2019 6:33:18 PM Test Reason : chest pain Blood Pressure : / mmHG Vent. Rate : 067 BPM Atrial Rate : 067 BPM P-R Int : 166 ms QRS Dur : 100 ms QT Int : 422 ms P-R-T Axes : 040 -20 073 degrees QTc Int : 445 ms Normal sinus rhythm. Minimal voltage criteria for LVH, may be normal variant Borderline ECG When compared with ECG of 25-APR-2019 15:38, (Unconfirmed) No significant change was found Unconfirmed Result
--- NOTE | 2019-04-25 18:54 | PROVIDER DOCUMENTATION ---
This chart was entered by Bryan Maynard Scribe, acting as scribe for Calvin Mccormack DO. HPI-Chest Pain - General Stated Complaint: DIZZINESS, CP Time Seen by Provider: 04/25/19 15:53 Source: patient, EMS Allergies/Adverse Reactions: Patient Allergies Allergy/AdvReac Type Severity Reaction Status Date / Time No Known Allergies Allergy Verified 05/17/18 19:29 Home Medications: Home Medication List Medication Instructions Recorded Confirmed Last Taken Type Amlodipine [Norvasc] 5 mg PO DAILY tab 11/28/18 Unknown Rx Aspirin/Calcium Carbonate/Mag 325 mg PO DAILY #30 tab 11/28/18 Unknown Rx [Aspirin Buffered 325 mg Tab] Citalopram [Celexa] 20 mg PO DAILY tab 11/28/18 Unknown Rx FOSINOpril [Monopril] 40 mg PO BID tab 11/28/18 Unknown Rx Fenofibrate [Tricor] 145 mg PO QHS tab 11/28/18 Unknown Rx ROSUVAstatin [Crestor] 20 mg PO QHS tab 11/28/18 Unknown Rx - History of Present Illness-CP Nature of Presenting Problem: 64 yowm presents to the ED v/a EMS with c/o dizziness, chest pains and shortness of breath. Pt states being at [employer] , pt was walking around and someone telling him he doesn't look good , looks pale. pt states seeing " fuzzy things" then feeling dizzy. pt states when he tries to get up he feels dizzy. pt states having a stroke in october effecting his right side and a heart attack in 1981 while at work. pt states leg swelling when walking a lot. Location: reports: substernal, epigastric Chest Pain Radiation: reports: no radiation Quality of Pain: reports: cramping Severity in ED: mild Onset/Duration: 1 hour ago Timing: still present, intermittent Context/Activities at Onset: reports: light activity Modifying Factors: worse with: movement Associated Symptoms: reports: dizziness, shortness of breath. denies: headache, nausea, vomiting Prior Chest Pain/Cardiac Workup: reports: heart attack (1981) Similar Symptoms Previously?: No Recently Seen Here or By Another Healthcare Provider: No Review of Systems - Adult - REVIEW OF SYSTEMS - ADULT Constitutional: reports: no symptoms reported Eyes: reports: no symptoms reported Ears, Nose, Mouth & Throat: reports: no symptoms reported Cardiovascular: reports: see HPI, chest pain. denies: palpitations, syncope Respiratory: reports: no symptoms reported, shortness of breath. denies: chronic cough, cough Gastrointestinal: reports: no symptoms reported Genitourinary: reports: no symptoms reported Musculoskeletal: reports: no symptoms reported Integumentary: reports: no symptoms reported Neurological: reports: dizziness/vertigo. denies: slurred speech, syncope Psychiatric: reports: no symptoms reported Endocrine: reports: no symptoms reported Hematologic/Lymphatic: reports: no symptoms reported Allergic/Immunologic: reports: no symptoms reported All Other Systems: Reviewed and Negative Past History - Adult - PAST MEDICAL HISTORY-ADULT Review of Records: reports: Old Records Reviewed, Nursing Assessment Review, Medications Reviewed, Social history reviewed & non-contributory. Major Childhood Illnesses: reports: denies history Cardiovascular: reports: HTN, hyperlipidemia Respiratory: reports: denies history Gastrointestinal: reports: denies history Obstetrical/Gynecological: reports: denies history Genitourinary: reports: denies history Musculoskeletal: reports: denies history Neurological: reports: TIA Psychiatric: reports: bipolar Endocrine/Immune: reports: denies history Other Conditions: reports: denies history - IMMUNIZATION STATUS Childhood Immunizations: See Nurse Assessment Flu Vaccine: See Nurse Assessment - FAMILY HISTORY Family History: reviewed, not pertinent - SOCIAL HISTORY Smoking: cigarettes, less than 1 pack/day Provider spent 3-5 mins advising pt. on dangers of tobacco.: Discussed manners to quit use, and f/u contacts for add'l counseling. Substance Use: denies Living Situation: alone Physical Exam-General - PHYSICAL EXAM-ADULT Initial Vital Signs Reviewed: Yes - CONSTITUTIONAL General Appearance: appears well, alert, no apparent distress. negative: lethargic, slow to respond - EYES Eyes: PERRL/EOMI, pink conjunctivae - HEAD, EARS, NOSE, MOUTH & THROAT HENMT: moist mucous membranes - NECK Neck: non-tender, full range of motion - RESPIRATORY Respiratory: lungs clear, normal breath sounds - CARDIOVASCULAR Cardiovascular: normal peripheral pulses, regular rate, rhythm - GASTROINTESTINAL (ABDOMEN) Abdominal Exam: normal bowel sounds, non tender, soft - LYMPHATIC Lymphatic: no adenopathy - MUSCULOSKELETAL Back Exam: normal inspection, no CVA tenderness Extremity: normal range of motion, non-tender - SKIN Integumentary: normal color, normal turgor, warm/dry - NEUROLOGIC Neurologic: grossly normal - PSYCHIATRIC Psych/Mental Status: normal mood/affect, normal thought content, normal thought process, oriented x 3 - HEART Score HEART Score: History: Highly Suspicious HEART Score: ECG: Significant ST-Deviation HEART Score: Age: > or = 65 Years HEART Score: Risk Factors for Atherosclerotic Disease: > or = 3 Risk Factors or History of Atherosclerotic Disease HEART Score: Troponin: < or = Normal Limit Total HEART Score:: 8 Progress - PLAN OF CARE/RESULTS Progress/Plan/Lab Results: Vital Signs - 8 hr 04/25/19 15:53 04/25/19 17:37 Temperature 97.7 F Pulse Rate 63 Respiratory Rate 18 Blood Pressure 91/70 O2 Sat by Pulse Oximetry 96 98 Laboratory Results - last 24 hr 04/25/19 04/25/19 04/25/19 16:00 16:00 16:00 WBC RBC Hgb Hct MCV MCH MCHC RDW Std Deviation Plt Count MPV Immature Gran % (Auto) Neut % (Auto) Lymph % (Auto) [place] % (Auto) Eos % (Auto) Baso % (Auto) Immature Gran # (Auto) Neut # (Auto) Lymph # (Auto) [place] # (Auto) Eos # (Auto) Baso # (Auto) Sodium 139 Potassium 3.5 Chloride 102 Carbon Dioxide 23 L Anion Gap 14 BUN 32 H Creatinine 2.8 H Estimated GFR/1.73 m2 23 BUN/Creatinine Ratio 11 Glucose 119 H Calculated Osmolality 286 Calcium 9.4 Total Bilirubin 0.92 AST 32 ALT 36 Alkaline Phosphatase 73 Creatine Kinase 749 H Creatine Kinase Index 1.4 CK-MB (CK-2) 10.50 H Troponin T < 0.010 Total Protein 7.4 Albumin 4.6 Globulin 2.8 Albumin/Globulin Ratio 1.6 04/25/19 04/25/19 04/25/19 16:00 18:14 18:14 WBC 10.72 RBC 5.11 Hgb 15.8 Hct 45.6 MCV 89.2 MCH 30.9 MCHC 34.6 RDW Std Deviation 13.0 Plt Count 291 MPV 10.8 H Immature Gran % (Auto) 0.0 Neut % (Auto) 64.7 Lymph % (Auto) 25.2 [place] % (Auto) 8.5 Eos % (Auto) 1.3 Baso % (Auto) 0.3 Immature Gran # (Auto) 0.00 Neut # (Auto) 6.94 H Lymph # (Auto) 2.70 [place] # (Auto) 0.91 H Eos # (Auto) 0.14 Baso # (Auto) 0.03 Sodium Potassium Chloride Carbon Dioxide Anion Gap BUN Creatinine Estimated GFR/1.73 m2 BUN/Creatinine Ratio Glucose Calculated Osmolality Calcium Total Bilirubin AST ALT Alkaline Phosphatase Creatine Kinase 662 H Creatine Kinase Index CK-MB (CK-2) Troponin T < 0.010 Total Protein Albumin Globulin Albumin/Globulin Ratio Orders Category Date Time Status Admit - [facility] Routine AdmDCTranf 04/25/19 19:05 Active Activity - Bed Rest with BRP ORDERED Care 04/25/19 19:05 Active Call Admitting on Arrival AT ADMISSION Care 04/25/19 19:07 Active Resuscitation Status Routine Care 04/25/19 19:05 Ordered Vital Signs Order ARRIVAL TO ROOM Care 04/25/19 19:05 Active Z-Document. for Tele Applied ORDERED Care 04/25/19 19:08 Active Heart Healthy Diet Diet 04/26/19 00:01 Active CHEST-PORTABLE [RAD] Stat Exams 04/25/19 15:53 Completed CBC WITH ELECTRONIC DIFF [HEME] Stat Lab 04/25/19 16:00 Completed CK PROFILE [SP CHEM] Stat Lab 04/25/19 16:00 Completed CK PROFILE [SP CHEM] Stat Lab 04/25/19 18:14 Results CK PROFILE [SP CHEM] Stat Lab 04/25/19 19:09 Ordered COMPREHENSIVE METABOLIC PANEL [CHEM] Stat Lab 04/25/19 16:00 Completed TROPONIN T Stat Lab 04/25/19 16:00 Completed TROPONIN T Stat Lab 04/25/19 18:14 Completed TROPONIN T Stat Lab 04/25/19 19:09 Ordered 0.9% Sodium Chloride Inj [Ns] 1,000 ml Med 04/25/19 19:05 Active IV 100 mls/hr 0.9% Sodium Chloride Inj [Ns] 1,000 ml Med 04/25/19 15:54 Active IV 250 mls/hr Morphine Med 04/25/19 19:05 Ordered 2 mg IV Q2H PRN PRN Ondansetron [Zofran] Med 04/25/19 19:05 Ordered 4 mg IV Q4H PRN PRN Telemetry [OM.EQ] Routine Oth 04/25/19 19:05 Active EKG [EKG] Stat Ther 04/25/19 15:52 Ordered EKG [EKG] Stat Ther 04/25/19 18:00 Draft Transfer/Admit Order [TRANSFER] Routine Transfer 04/25/19 19:10 Ordered Result Diagrams: 04/25/19 16:00 04/25/19 16:00 - REASSESSMENT Reassessment #1 Time Reassessed: 16:37 Status: improving (no chest pain) Reassessment #2 Time Reassessed: 18:02 (no chest pain) Status: unchanged - EKG 1 Time of EKG reading by physician:: 15:38 EKG Read and Signed by:: Calvin Mccormack EKG Interpretation (*Must complete 3 of following elements*): Abnormal Rate: 63 Rhythm: NSR [place]: normal QRS: other (minimal voltage criteria for LVH, may be normal variant) [place] Interval: normal ST Wave: normal Comments: T wave abnormality, consider lateral ischemia 2 Time of EKG reading by physician:: 18:41 EKG Read and Signed by:: Calvin Mccormack EKG Interpretation (*Must complete 3 of following elements*): Abnormal Rate: 67 Rhythm: sinus [place]: normal QRS: other (possible LVH) [place] Interval: normal - XRAY 1 XRAY Study: Chest Impression: See EMR Report (CHEST-PORTABLE - 04/25/2019 INDICATION: chest pain COMPARISON: 11/20/2018 FINDINGS: The lungs are normally expanded and clear. Heart size and mediastinal contours are normal. No pneumothorax or pleural effusion. IMPRESSION: Negative exam. Electronically signed by Maximiliano Bauman 04/25/2019 4:07 PM 04/25/19 1607 Interpreting Physician: Maximiliano Bauman MD Dictated Date/Time: 04/25/19 1607 cc: Calvin Mccormack DO; Shravan Urbina Jr, MD) - CONSULTS/PCP/HOSPITALIST Notification #1 *Consult/PCP/Hospitalist*: Quin Time Discussed: 18:22 (admit to Dr Hardy) Reason/Comments: Will Consult Disposition: Will see in ED, other (Dr Desai patient need to contact his coverage) #2 Consult: Dr Light Time Discussed: 18:51 (Consult cardiology may need to go to [place]) Departure - Departure Date of Disposition Decision: 04/25/19 Time of Disposition Decision: 19:11 DIAGNOSIS: Chest pain Disposition: ADMITTED INPATIENT 09 Certified Medical Emergency: Emergent Condition: Fair Referrals and Follow-Ups: Shravan Urbina Jr, MD [Primary Care Provider] - - Critical Care Note This patient required my direct & personal management of CC.: No Attestation - Physician/ ASAD Attestation Patient care was provided by Advanced Practice Provider:: No The physician spent face to face time with patient:: Yes Advanced Practice Provider documentation review:: Supervising physician onsite and consulted in the evaluation and care of this patient. The physician did have a face to face encounter with the patient. This chart was documented by the indicated scribe, (Bryan Maynard, Janet) and accurately reflects the services I performed and decisions made by , Calvin Mccormack DO, as attested by the provider's signature.
[2019-04-25 19:42] LABS: CK INDEX 1.4 (0.0-2.5); CK-MB 9.1 ng/mL (0.0-5.0)
--- NOTE | 2019-04-25 21:26 | HISTORY AND PHYSICAL ---
CHIEF COMPLAINT: Chest pain. PRESENT ILLNESS: This is the first recent [facility] admission for this 64-year-old white man with substernal chest tightness and pain a couple of hours before presentation to the emergency room. He was at [facility] [employer] [facility] [employer] and was picked up by ambulance and brought to the emergency room. In route, he received 4 chewable aspirin tablets. He was evaluated by Dr. Mccormack in the emergency room and EKGs and enzymes were done. There was elevation in CPK and mild elevation in MB fraction, but troponin was normal. Discussion was made with Dr. Mccormack and Dr. Ramos was contacted who felt that he could be admitted to [facility] and then determine whether he needs to go to [place] rather than going directly to [place]. He had a heart attack in 1982, but no arteriogram following that episode. He had a stroke in October of this year. Brain MRI revealed recent lacunar infarcts involving the left parietal, left putamen and left caudate. 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 Echocardiogram revealed ejection fraction of 60%, trace tricuspid regurgitation, and trace pulmonic insufficiency. There was grade 1 left ventricular diastolic dysfunction. There were no regional wall abnormalities. There was grossly preserved right ventricular systolic function. Carotid ultrasound was done also and showed no hemodynamically significant lesions. He states that the pain has eased up over the last couple of hours since being in the hospital, but is still present. There is no significant discomfort with deep respiration. He has had no similar pain over the last few weeks. He has been out of his Crestor recently, but has been taking fenofibrate. There is no history of recent surgery. PRESENT MEDICATIONS: Fenofibrate 145 mg at bedtime, amlodipine 5 mg daily, aspirin 325 mg 1 daily, Celexa 20 mg daily, Monopril 40 mg b.i.d. ALLERGIES: None known. REVIEW OF SYSTEMS: No significant decrease in exercise tolerance over the past few months. There is history of hiatal hernia. He was not belching or having indigestion type pain today. When asked if his pain was similar to that when he had a heart attack in 1982, he said the pain today was worse. SOCIAL HISTORY: He is a . He stopped smoking in October after his stroke. He states that he had some left-sided arm weakness following the stroke, even though the report said left-sided stroke with right weakness. 97.7, heart rate 59, respirations 16, blood pressure 128/71, O2 saturation on 2 liters nasal oxygen 100%. Weight 213 pounds. HEENT: Pupils equal, round, and reactive to light. He wears glasses. Pharynx benign. Neck: Supple with no mass or lymphadenopathy. There is no carotid bruit. Heart: Regular in rate and rhythm with no murmur, rub or gallop. There is moderate chest wall tenderness to palpation in the costochondral areas bilaterally. Abdomen: Mild epigastric tenderness but no mass. Bowel sounds are normal. Extremities: No cyanosis, clubbing, or edema. Rectal/Genitalia: Deferred. IMPRESSION: 1. Atypical chest pain. 2. Costochondritis. 3. History of hiatal hernia. 4. History of hyperlipidemia. 5. Cerebral vascular disease. 6. Normal peripheral pulses. PLAN: Admit for serial EKGs and enzymes. Cardiology consult with Dr. Ramos is obtained. cc: MD Shravan Baker Jr, MD
[2019-04-25 22:44] LABS: CK INDEX 1.4 (0.0-2.5); CK-MB 8.27 ng/mL (0.0-5.0)
[2019-04-25] MEDS: TRICOR PO SCH (23:31)
[2019-04-25] MEDS: MONOPRIL PO SCH (23:31)
[2019-04-25] MEDS: CRESTOR PO SCH (23:31)
[2019-04-26] MEDS ORDERED: PNEUMOVAX 23 IM ONE (05:49)
--- NOTE | 2019-04-26 07:41 | EKG Report ---
Test Performed on : 04/26/2019 06:25:31 AM Test Reason : chest pain Blood Pressure : / mmHG Vent. Rate : 055 BPM Atrial Rate : 055 BPM P-R Int : 154 ms QRS Dur : 116 ms QT Int : 428 ms P-R-T Axes : 065 -21 084 degrees QTc Int : 409 ms Sinus bradycardia. Nonspecific T wave abnormality Abnormal ECG When compared with ECG of 25-APR-2019 18:33, (Unconfirmed) No significant change was found Confirmed by Cristine Saucedo MD ([id number]) on 04/28/2019 8:29:16 AM
--- NOTE | 2019-04-26 10:05 | PROGRESS NOTE ---
DATE: 04/26/2019 Vital signs stable with temperature 97.8 degrees, heart rate 53, respirations 16, blood pressure 120/68, O2 saturation on room air of 97%. The patient has general malaise and continued chest tightness and discomfort. Lungs are clear. There continues to be costochondral tenderness. He ate well for breakfast. Laboratory revealed decreasing CPK and MB with normal troponin. EKG shows nonspecific ST-T changes with no Q-wave. PLAN: Cardiology consult. cc: MD Shravan Baker Jr, MD
[2019-04-26] MEDS: MONOPRIL PO SCH ×2 (10:42→21:45)
[2019-04-26] MEDS: ASPIRIN EC PO SCH (10:43)
[2019-04-26] MEDS: CELEXA PO SCH (10:43)
[2019-04-26] MEDS: NORVASC PO SCH (10:43)
[2019-04-26] MEDS: MORPHINE IV PRN ×3 (10:43→18:26)
--- NOTE | 2019-04-26 14:20 | CARDIOLOGY CONSULTATION ---
DATE: 04/26/2019 REASON FOR CONSULT: Chest pain. HISTORY OF PRESENT ILLNESS: Mr. Dorsey is a 64-year-old gentleman who comes with complaints of having tightness in his chest a few hours presenting to the emergency room. En route to the emergency room he had 4 chewable aspirin tablets. Electrocardiogram was normal. CPK was elevated. Troponin was normal. The patient describes his chest pain as squeezing in character and a pressure-like sensation associated with some diaphoresis. However, he also states that his chest wall was very tender to touch and he has also had chest wall and epigastric discomfort. In addition, has some discomfort in the abdomen. There is no associated nausea or vomiting. These symptoms started while he was in a restaurant. There are no palpitations. There is no dizziness or syncope. He says he had a heart attack in 1982. No arteriogram following that episode. In October of this year the patient had an MRI of his brain which revealed recent lacunar infarcts involving the left parietal, left putamen, and left caudate area. His last echocardiogram revealed an ejection fraction of 60%. Carotid ultrasounds were also done at that time when he had a stroke which were unremarkable. As far as the chest pains are concerned, he has had these sharp episodes of chest pain. He says his chest wall is tender to touch on the right costochondral junction and the left costochondral junction. PAST MEDICAL HISTORY: 1. Hypertension. 2. Hyperlipidemia. 3. Depression. 4. CVA earlier this year with lacunar infarcts in the left parietal and putamen and left caudate area. 5. The patient says he has had a heart attack in 1982; however, no arteriogram done at that point. HOME MEDICATIONS: Fenofibrate, amlodipine, enteric-coated aspirin, Celexa, Monopril. SOCIAL HISTORY: The patient is a . Stopped smoking in October after his stroke. PHYSICAL EXAMINATION: Vital Signs: Blood pressure 128/71. Cardiovascular System: Normal jugular venous pressure. First and second heart sounds were heard. There were no murmurs or gallop. Respiratory system: Normal air entry. There are no crepitations or rhonchi. Abdomen: Soft. There was some tenderness in the epigastric and right hypochondrial area. HEENT: Atraumatic, normocephalic. Pupils were equal and reacting to light. Chest wall: Revealed significant tenderness in the right and left upper costochondral junction. ASSESSMENT: Mr. José Dorsey is a 64-year-old gentleman with history of gastroesophageal reflux disease, hiatal hernia, history of hypertension, cerebrovascular accident in the past, hyperlipidemia, depression, who comes with complaints of severe chest pain associated with significant chest wall tenderness. The patient's electrocardiogram revealed sinus bradycardia with nonspecific ST-T changes. He has been ruled out for myocardial infarction by cardiac enzymes. PLAN: 1. I suspect these symptoms are more suggestive of costochondritis. He says he has a history of arthritis as well. We will check a sedimentation rate. There are no murmurs or rub. We will get an echocardiogram to assess cardiac and valvular function. 2. We will set him up to undergo a Lexiscan Cardiolite stress test to rule out ischemia. In addition, we will also get a right upper quadrant ultrasound to rule out gallbladder disease. 3. He has a history of gastroesophageal reflux disease and may require further GI workup as well. Thank you for the consult. We will follow hospital course. cc: MD Shravan Decker Jr, MD
--- NOTE | 2019-04-26 16:38 | ECHO REPORT ---
ORDER DATE: 04/26/2019 ECHOCARDIOGRAPHIC MEASUREMENTS: 1. Interventricular septum 1.1. 2. Left ventricular posterior wall 1.1. 3. Diastolic diameter 5.7. 4. Left atrium 4.3. 5. Aorta 3.7. SUMMARY: 1. Optison on was used to delineate endocardial border. 2. Normal left ventricular cavity size. Estimated ejection fraction of 60 to 65%. 3. There is mild diastolic dysfunction. 4. There is left atrial enlargement. 5. Peak velocity across the aortic valve was less than 2 m/sec. 6. There is no aortic stenosis or regurgitation. 7. Aortic valve leaflets are trileaflet. 8. Mitral valve was normal. 9. There is mild tricuspid regurgitation. 10. Tricuspid valve was normal. 11. Mild tricuspid regurgitation. 12. Peak velocity across the tricuspid valve was 2.8 m/sec. 13. Pulmonary artery systolic pressure of 42 mmHg. 14. There is no pericardial effusion or obvious intracardiac mass or thrombus seen. cc: MD Shravan Decker Jr, MD
[2019-04-26] MEDS: CRESTOR PO SCH (21:45)
[2019-04-26] MEDS: NAPROSYN PO SCH (21:45)
[2019-04-26] MEDS: TRICOR PO SCH (21:45)
--- NOTE | 2019-04-27 09:21 | PROGRESS NOTE ---
DATE: 04/27/2019 SUBJECTIVE: The patient still has chest wall pain. He also has abdominal pain, especially in the right upper quadrant. Ultrasound of the abdomen has been ordered, or at least a gallbladder ultrasound. He is also going to get a stress test. He does tell me that he has a good bit of nausea right after he had eaten some greasy food. The patient has a history of a CVA so he has had some vascular disease. OBJECTIVE: Blood pressure is 114/68, respirations 18, pulse is only 49 but this has been usual for him to have some bradycardia, temperature is 98.2 degrees Fahrenheit. HEENT: Normocephalic. EOMs intact. PERRLA. Throat clear. Lungs: Clear to auscultation and percussion without rhonchi, rales, or wheezes. Heart: Regular rate rhythm without murmurs, gallops, or friction rubs. Abdomen: He has some diffuse tenderness but most tenderness is in the right upper quadrant. He also has chest wall tenderness, consistent with costochondritis. Neurological Examination: Cranial nerves 2-12 are intact grossly. Sensory and motor intact. Reflexes 1+ all. Creatinine was 2.8. CKs were elevated but not the CK index. These did not really look like a cardiac pattern. Liver enzymes were normal. ASSESSMENT: 1. Chest pain. 2. Abdominal pain. 3. Chronic kidney disease. PLAN: We will get more lab work to check kidney function. We will await ultrasound of gallbladder and stress test. May need HIDA scan, but we will have to see what his ultrasound shows first. If he has a HIDA scan, it may have to be done some time after his Lexiscan. cc: Shravan Urbina Jr, MD
[2019-04-27 10:29] LABS: ALB/GLOB RATIO 1.4; ALBUMIN 3.6 g/dL (3.5-5.0); CALCIUM 8.4 mg/dL (8.8-10.2); CREATININE 1.6 mg/dL (0.7-1.2); POTASSIUM 4.2 mmol/L (3.5-5.1); TOTAL BILIRUBIN 0.47 mg/dL (0.20-1.00); TOTAL PROTEIN 6.1 g/dL (6.3-8.3)
--- NOTE | 2019-04-27 11:35 | Diag Imaging Result Doc PS360 ---
EXAM: US PELVIC MALE (COMPLETE) HISTORY: chest pain TECHNIQUE: Pelvis ultrasound COMPARISON: None. FINDINGS: The urinary bladder is distended. The prostate is enlarged and indents the bladder. Masslike appearance in the base of the bladder appears to be due to the prostate. The prostate measures approximately a 8.4 x 6.1 x 4.9 cm. IMPRESSION: Enlarged prostate Electronically signed by Austyn Landin 04/27/2019 11:33 AM
--- NOTE | 2019-04-27 12:57 | Diag Imaging Result Doc PS360 ---
EXAM: US ABDOMEN-COMPLETE HISTORY: chest pain/abd pain TECHNIQUE: Abdominal ultrasound COMPARISON: None. FINDINGS: No abdominal aortic aneurysm. Normal inferior vena cava. No focal hepatic abnormality. There is a 1.4 cm stone within the gallbladder. The wall is not thickened. The common bile duct measures 2 mm. Normal pancreatic body. The head and tail are obscured. Small right renal cyst. No hydronephrosis. The spleen is not enlarged. No ascites. Marked dilatation to the left renal pelvis with blunted calyces. No normal renal tissue identified. IMPRESSION: 1.Marked dilatation to the left renal pelvis with no normal renal tissue identified 2.Cholelithiasis Electronically signed by Austyn Landin 04/27/2019 12:55 PM
[2019-04-27] MEDS ORDERED: LEXISCAN ONE (13:25)
[2019-04-27] MEDS: NORVASC PO SCH (15:17)
[2019-04-27] MEDS: MONOPRIL PO SCH ×2 (15:17→23:32)
[2019-04-27] MEDS: NAPROSYN PO SCH ×2 (15:17→23:32)
[2019-04-27] MEDS: ASPIRIN EC PO SCH (15:17)
[2019-04-27] MEDS: CELEXA PO SCH (15:17)
[2019-04-27] MEDS: CRESTOR PO SCH (23:32)
[2019-04-27] MEDS: TRICOR PO SCH (23:32)
[2019-04-28 05:57] LABS: BASO# 0.04 X1000 (0.0-0.2); BASO% 0.6 % (0.0-0.8); EOS# 0.14 X1000 (0.0-0.7); EOS% 2.1 % (0.0-10.0); HEMATOCRIT 42.5 % (42.0-52.0); HEMOGLOBIN 14.5 g/dL (14.0-18.0); LYMPH# 1.91 X1000 (1.2-3.4); LYMPH% 28.5 % (20.5-51.1); MCH 31.2 PG (27-31); MCHC 34.1 g/dL (33-37); MCV 91.4 FL (81-99); MONO# 0.51 X1000 (0.11-0.59); MONO% 7.6 % (1.7-9.3); MPV 10.9 FL (7.4-10.4); NEUT# 4.11 X1000 (1.4-6.5); NEUT% 61.2 % (42.2-75.2); PLT 231 X1000 (130-400); RBC 4.65 XMIL (4.7-6.1); RDW 12.8 % (11.5-14.5); WBC 6.71 X1000 (4.8-10.8)
[2019-04-28 06:36] LABS: ALB/GLOB RATIO 1.8; CALCIUM 8.7 mg/dL (8.8-10.2); CREATININE 1.3 mg/dL (0.7-1.2); POTASSIUM 4.1 mmol/L (3.5-5.1); TOTAL BILIRUBIN 0.56 mg/dL (0.20-1.00); TOTAL PROTEIN 6.2 g/dL (6.3-8.3)
--- NOTE | 2019-04-28 08:13 | PROGRESS NOTE ---
DATE: 04/28/2019 SUBJECTIVE: The patient says he just does not feel good. He feels like he has been run over by a [employer] truck. He is still having abdominal pain and some nausea. His chest wall pain seems to be doing a little bit better. He finished up his Cardiolite GXT yesterday but I do not have the results. OBJECTIVE: Blood pressure is 151/74, respirations 21, pulse 53, temperature 97.7 degrees Fahrenheit. HEENT: Normocephalic. EOMs intact. PERRLA. Throat clear. Lungs: Clear to auscultation and percussion without rhonchi, rales, or wheezes. Heart: Regular rate and rhythm without murmurs, gallops, or friction rubs. Abdomen: Tender diffusely but more so in the right upper quadrant. Neurological: Examination intact grossly. Laboratory: Shows white count of 6710, hemoglobin 14.5, hematocrit 42.5. Electrolytes are essentially normal. Creatinine has come down from 2.8 down to 1.3. Ultrasound of the abdomen and pelvis did show an atrophic kidney on the left which he has had for some time. No real changes seen there. He does have gallstones. He has one liver function test with AST slightly elevated at 42 now. Total bilirubin is normal. ASSESSMENT: 1. Chest pain. 2. Chest wall pain. 3. Gallstones. 4. Abdominal pain. 5. Nausea and vomiting. 6. Bipolar illness. 7. Renal failure, now improving. 8. Atrophic left kidney. PLAN: We will give him some IV fluids. We will consult surgery. We will stop his Naprosyn as that could be irritating him. We will put him on clear liquids. We will start Prilosec. cc: Shravan Urbina Jr, MD
[2019-04-28] MEDS: MONOPRIL PO SCH ×2 (09:17→20:59)
[2019-04-28] MEDS: CELEXA PO SCH (09:17)
[2019-04-28] MEDS: ASPIRIN EC PO SCH (09:18)
[2019-04-28] MEDS: NORVASC PO SCH (09:18)
--- NOTE | 2019-04-28 10:19 | Diag Imaging Result Document ---
PROCEDURE NAME: MYOCARDIAL PERF SCAN, STR/REST - 04/27/2019 LEXISCAN SESTAMIBI INTERPRETATION: SUMMARY: The patient was administered 14.9 mCi of technetium-99m sestamibi, after which resting cardiac images were obtained. The patient was administered Lexiscan 0.4 mg intravenously after which the heart rate went from 57 beats per minute to 68 beats per minute and the blood pressure went from 156/81 to 125/71. With Lexiscan, the patient reported transient moderate chest discomfort. Following the administration of Lexiscan, the patient was administered 43.1 mCi of technetium 99-m sestamibi after which gated stress cardiac images were obtained. Baseline ECG demonstrates sinus bradycardia. With Lexiscan, there were no diagnostic ST-segment changes. SPECT images were reconstructed in the short, horizontal long, and vertical long axes. Review of these images demonstrated no scintigraphic evidence of inducible myocardial ischemia or prior infarct. Gated images demonstrate a calculated left ventricular ejection fraction of 62% with symmetrical wall motion/thickening. CONCLUSIONS: 1. Adequate response to Lexiscan. 2. Clinically the patient reported very transient moderate chest discomfort with Lexiscan. 3. Electrocardiographically negative for Lexiscan-induced myocardial ischemia. 4. Lexiscan sestamibi images demonstrate no scintigraphic evidence of inducible myocardial ischemia. Calculated left ventricular ejection fraction 62%. cc: MD Cresencio Myers MD [facility]
[2019-04-28] MEDS ORDERED: DULCOLAX PR ONE (10:40)
[2019-04-28] MEDS: KEFZOL 2 GM/D5W 2 GM/50 ML IVPB IV SCH (18:14)
[2019-04-28] MEDS: CRESTOR PO SCH (20:59)
[2019-04-28] MEDS: TRICOR PO SCH (20:59)
[2019-04-28] MEDS: PRILOSEC PO SCH (20:59)
[2019-04-28] MEDS: FLEET ENEMA PR SCH ×2 (21:00→21:06)
[2019-04-29] MEDS: KEFZOL 2 GM/D5W 2 GM/50 ML IVPB IV SCH ×2 (01:23→10:00)
[2019-04-29 05:55] LABS: BASO# 0.04 X1000 (0.0-0.2); BASO% 0.7 % (0.0-0.8); EOS# 0.13 X1000 (0.0-0.7); EOS% 2.1 % (0.0-10.0); HEMATOCRIT 40.9 % (42.0-52.0); HEMOGLOBIN 14.1 g/dL (14.0-18.0); LYMPH# 1.91 X1000 (1.2-3.4); LYMPH% 31.2 % (20.5-51.1); MCH 31.2 PG (27-31); MCHC 34.5 g/dL (33-37); MCV 90.5 FL (81-99); MONO# 0.45 X1000 (0.11-0.59); MONO% 7.3 % (1.7-9.3); MPV 10.6 FL (7.4-10.4); NEUT% 58.7 % (42.2-75.2); PLT 219 X1000 (130-400); RBC 4.52 XMIL (4.7-6.1); RDW 12.5 % (11.5-14.5); WBC 6.13 X1000 (4.8-10.8)
[2019-04-29] MEDS: PRILOSEC PO SCH (06:25)
[2019-04-29 06:26] LABS: ALB/GLOB RATIO 1.8; ALBUMIN 3.9 g/dL (3.5-5.0); CREATININE 1.3 mg/dL (0.7-1.2); POTASSIUM 4.1 mmol/L (3.5-5.1); TOTAL BILIRUBIN 0.61 mg/dL (0.20-1.00); TOTAL PROTEIN 6.1 g/dL (6.3-8.3)
[2019-04-29] MEDS ORDERED: XYLOCAINE-MPF 2% ONE (06:27)
[2019-04-29] MEDS ORDERED: ZEMURON ONE ×4 (06:27→08:56)
[2019-04-29] MEDS ORDERED: ROBINUL ONE (06:27)
[2019-04-29] MEDS ORDERED: QUELICIN (DOSE) ONE (06:27)
[2019-04-29] MEDS ORDERED: DIPRIVAN 1% ONE (06:28)
[2019-04-29] MEDS ORDERED: FENTANYL ONE (06:28)
[2019-04-29] MEDS ORDERED: NEOSTIGMINE ONE (06:29)
[2019-04-29] MEDS ORDERED: LR 1,000 ML ONE (07:49)
[2019-04-29] MEDS ORDERED: SENSORCAINE 0.25%/EPI 1:200,000 ONE (07:49)
[2019-04-29] MEDS ORDERED: SODIUM CHLORIDE 0.9% ONE (07:49)
[2019-04-29] MEDS ORDERED: TORADOL ONE (08:39)
[2019-04-29] MEDS ORDERED: OFIRMEV 1000 MG/ISOTONIC SOLN 1,000 MG/100 ML BOTTLE ONE (08:39)
[2019-04-29] MEDS ORDERED: ZOFRAN ONE (08:39)
[2019-04-29] MEDS ORDERED: BENADRYL ONE (09:27)
[2019-04-29] MEDS ORDERED: BRIDION ONE (09:28)
--- NOTE | 2019-04-29 09:46 | Diag Imaging Result Doc PS360 ---
EXAM: OPERATIVE CHOLANGIOGRAM 04/29/2019 HISTORY: GALLBLADDER DX TECHNIQUE: Intraoperative cholangiogram, one image, 15 seconds fluoroscopy time, 0.12 mGy. COMMENT: There is no evidence of filling defect or obstruction in the common bile duct. IMPRESSION: No evidence of retained stones or obstruction. Electronically signed by Shravan Regan 04/29/2019 9:44 AM
[2019-04-29] MEDS: DILAUDID ONE ×4 (10:06→10:21)
[2019-04-29] MEDS ORDERED: D5 1/2 NS + KCL 20 MEQ 1,000 ML ONE (10:27)
--- NOTE | 2019-04-29 10:28 | OPERATIVE NOTE ---
PROCEDURE DATE: 04/29/2019 PREOPERATIVE DIAGNOSIS: Acute and chronic cholecystitis with cholelithiasis. POSTOPERATIVE DIAGNOSIS: Acute and chronic cholecystitis with cholelithiasis. PROCEDURE PERFORMED: Laparoscopic cholecystectomy with cholangiogram. DESCRIPTION OF PROCEDURE: The patient was brought to the operating room. After satisfactory induction of IV and endotracheal anesthesia, orogastric tube and the Steven catheters were placed. His abdomen was broadly prepped and draped in the appropriate manner for laparoscopy. There was a palpable phlegmon in the right upper quadrant. Initially, the infraumbilical area was infiltrated with 0.25% Marcaine. A Angle approach was used for placement of a Angle trocar. The abdomen was insufflated to 3-1/2 L of carbon dioxide. On introduction of the camera, there was seen to be a wad of omentum in the right upper quadrant just beneath the liver. Again, after infiltration with Marcaine and epinephrine 0.5 and two 5 mm trocars were placed across the right epigastrium. The patient was repositioned. The omentum was peeled down off of the distended dense acutely inflamed gallbladder. The suction Harpoon asbestos surveyor was placed through the lumen of the gallbladder with evacuation of about 50 mL of white bile. This was sent for routine cultures. The gallbladder was subsequently grasped and retracted superiorly. The omental adhesions were peeled down, and the hilar structures were dissected. The cystic duct cholangiogram revealed good flow of contrast into the duodenum with no obstruction. The catheter was subsequently removed. The duct was doubly clipped and divided as was the cystic artery. The gallbladder was subsequently dissected from the liver bed with the use of the monopolar scissors. Upon completion, it was freed up, and placed in an EndoCatch bag and removed. On opening, there was a single 2 cm oval type stone. Reinspection of the liver bed revealed some bleeding points that were controlled by electrocautery. The subhepatic and subphrenic spaces were aspirated free of the small amount of bile and blood. All trocars were removed after abdominal deflation. The subumbilical incision underwent fascial closures of 0 Surgilon. This wound was irrigated with Betadine. All skin incisions were closed with stainless steel clips. Sterile dressings were applied. He was awakened and extubated in the operating room. The orogastric tube and Steven catheters were removed. He was transferred to Recovery. ESTIMATED BLOOD LOSS: About 20 mL. cc: MD Shravan Langston Jr, MD
[2019-04-29] MEDS ORDERED: ZOFRAN PO PRN (10:46)
--- NOTE | 2019-04-29 12:20 | PROGRESS NOTE ---
DATE: 04/29/2019 CHIEF COMPLAINT: The patient is sore, just got back from surgery where he had a laparoscopic cholecystectomy. He had acute and chronic cholecystitis with cholelithiasis at surgery. OBJECTIVE: Vital signs: Blood pressure is 177/84, respirations 15, pulse 58, temperature is 97.2 degrees Fahrenheit. HEENT: Normocephalic. EOMs intact. PERRLA. Throat clear. Lungs: Sound clear to auscultation and percussion without rhonchi, rales, or wheezes. Chest: He has no chest wall tenderness at this point. Abdomen: Tender but soft. He just had surgery. Decreased bowel sounds slightly. Neurological: The patient still has some pain medicines on board. He woke up briefly and said he was just having a little pain in his abdomen and then went off to sleep quickly. ASSESSMENT: 1. Chest pain. Cardiac workup negative. 2. Chest wall pain. 3. Acute cholecystitis with cholelithiasis and chronic cholecystitis. 4. Status post surgery today. 5. Bipolar illness. PLAN: We will watch in the hospital today. He did have an intraoperative cholangiogram that was normal. We will see how his chest pain and abdominal pain are doing in the morning. Appreciate help from all the specialists and from surgeon, Dr. Bonilla. cc: Shravan Urbina Jr, MD
[2019-04-29] MEDS: MONOPRIL PO SCH ×2 (13:13→20:26)
[2019-04-29] MEDS: NORVASC PO SCH (13:13)
[2019-04-29] MEDS: CELEXA PO SCH (13:13)
[2019-04-29] MEDS: FLOMAX PO SCH (13:13)
[2019-04-29] MEDS: PROTONIX IV SCH (13:14)
[2019-04-29] MEDS: MORPHINE IV PRN ×4 (13:14→20:34)
[2019-04-29] MEDS: SODIUM CHLORIDE 0.9% INJ SCH (13:14)
[2019-04-29] MEDS: D5 1/2 NS + KCL 20 MEQ 1,000 ML IV SCH ×2 (19:01→20:27)
[2019-04-29] MEDS: KEFZOL 1 GM/D5W 1 GM/50 ML IVPB IV SCH (19:03)
[2019-04-29] MEDS: CRESTOR PO SCH (20:26)
[2019-04-29] MEDS: TRICOR PO SCH (20:26)
[2019-04-29] MEDS: FLEET ENEMA PR SCH (20:39)
[2019-04-30] MEDS: NORCO-10 PO PRN ×3 (00:59→22:56)
[2019-04-30] MEDS: KEFZOL 1 GM/D5W 1 GM/50 ML IVPB IV SCH ×2 (03:45→09:02)
[2019-04-30] MEDS: D5 1/2 NS + KCL 20 MEQ 1,000 ML IV SCH (03:47)
[2019-04-30] MEDS: MORPHINE IV PRN ×3 (05:26→12:30)
[2019-04-30 06:46] LABS: BASO# 0.01 X1000 (0.0-0.2); EOS# 0.06 X1000 (0.0-0.7); EOS% 0.2 % (0.0-10.0); HEMATOCRIT 45.4 % (42.0-52.0); HEMOGLOBIN 15.3 g/dL (14.0-18.0); IMM GRAN# 0.07 X1000 (0.0-0.04); IMM GRAN% 0.3 % (0.0-0.5); LYMPH# 0.73 X1000 (1.2-3.4); LYMPH% 2.6 % (20.5-51.1); MCHC 33.7 g/dL (33-37); MCV 92.1 FL (81-99); MONO# 1.39 X1000 (0.11-0.59); MPV 11.4 FL (7.4-10.4); NEUT# 25.57 X1000 (1.4-6.5); NEUT% 91.9 % (42.2-75.2); PLT 247 X1000 (130-400); RBC 4.93 XMIL (4.7-6.1); RDW 12.9 % (11.5-14.5); WBC 27.83 X1000 (4.8-10.8)
[2019-04-30 06:51] LABS: LYMPHS 2 % (21-51); SEGS 96 % (42-75)
[2019-04-30 06:56] LABS: ALB/GLOB RATIO 1.5; ALBUMIN 4.1 g/dL (3.5-5.0); CALCIUM 8.8 mg/dL (8.8-10.2); CREATININE 1.5 mg/dL (0.7-1.2); POTASSIUM 4.7 mmol/L (3.5-5.1); TOTAL BILIRUBIN 0.9 mg/dL (0.20-1.00); TOTAL PROTEIN 6.8 g/dL (6.3-8.3)
[2019-04-30] MEDS: NORVASC PO SCH (09:02)
[2019-04-30] MEDS: MONOPRIL PO SCH ×2 (09:02→22:56)
[2019-04-30] MEDS: CELEXA PO SCH (09:02)
--- NOTE | 2019-04-30 09:21 | Diag Imaging Result Doc PS360 ---
EXAM: CHEST-PORTABLE HISTORY: ? sepsis TECHNIQUE: Chest single view COMPARISON: 04/25/2019 FINDINGS: Poor inspiratory effort. No cardiomegaly. No pulmonary edema. Atelectasis or small infiltrate in the left base. IMPRESSION: Poor inspiratory effort with atelectasis or small left basilar infiltrate Electronically signed by Austyn Landin 04/30/2019 9:18 AM
--- NOTE | 2019-04-30 10:03 | Diag Imaging Result Doc PS360 ---
EXAM: CT ABDOMEN/PELVIS W/O CONTRAST HISTORY: rule out bile leak TECHNIQUE: CT abdomen and pelvis without contrast COMPARISON: 05/30/2012 FINDINGS: Tiny effusions with basilar atelectasis and/or infiltrates. The gallbladder has been removed. There is a tiny amount of fluid about the liver and in each paracolic gutter. No abscess. The spleen is not enlarged. Normal pancreas and adrenal glands. Atrophic left kidney with no normal tissue. No right renal stone or hydronephrosis. No aortic aneurysm. No bowel obstruction. Normal appendix. No abscess. There is a Steven catheter in urinary bladder. The bladder is not distended. The prostate measures over 5.5 cm in transverse diameter. Moderate free fluid in the pelvis. There are small fat filled inguinal hernias. IMPRESSION: 1.Recent cholecystectomy with a tiny amount fluid in each paracolic gutter and a small to moderate amount in the pelvis 2.Atrophic left kidney 3.Fat filled inguinal hernias 4.Prominent prostate 5.Basilar atelectasis versus tiny infiltrates This exam was performed using automated exposure control, adjustment of mA or kV according to patient size, and/or use of iterative reconstruction technique. Electronically signed by Austyn Landin 04/30/2019 10:00 AM
[2019-04-30] MEDS: ZOSYN 4.5 GM in NS 100 ML IV SCH ×2 (11:08→22:55)
[2019-04-30] MEDS: FLOMAX PO SCH (11:17)
[2019-04-30] MEDS: SODIUM CHLORIDE 0.9% INJ SCH (11:18)
[2019-04-30] MEDS: PROTONIX IV SCH (11:18)
[2019-04-30] MEDS: ZYVOX 600 MG/D5W 600 MG/300 ML IVPB IV SCH (12:30)
--- NOTE | 2019-04-30 13:30 | INFECTIOUS DISEASE CONSULT REP ---
DATE: 04/30/2019 CONCLUSION: The patient is status post laparoscopic cholecystectomy. His white count has increased dramatically from 6130 to 27,830. I think that the patient has bibasilar pneumonia, which is the cause of the patient's leukocytosis. RECOMMENDATIONS: I agree with the decision to put the patient on Zosyn. To this, I have added Zyvox. I have discontinued Celexa because it can interact with Zyvox. DISCUSSION: The patient underwent laparoscopic cholecystectomy this morning. His white count had increased from 6130 to 27,830. Today, the patient had been having pain in the upper part of his abdomen with deep respirations. The abdomen also is tender. CT scan shows bibasilar atelectasis versus infiltrates. Chest x-ray shows left lower lobe infiltrate versus atelectasis. CBC went from 6130 to 27,830, hemoglobin is 15.3, and platelet count is 247,000. Creatinine is 1.5. GFR is 47. AST is 96. Blood cultures are pending. Cultures from the patient's abdomen are negative. PREVIOUS HOSPITALIZATIONS AND OPERATIONS: The patient had been admitted once for a stroke. MEDICAL DISEASES: Positive for hypertension, hypertriglyceridemia, and stroke. INFECTIOUS DISEASE HISTORY: Positive for pneumonia and UTI. FAMILY HISTORY: Positive for diabetes mellitus, hypertension, myocardial infarction, stroke, and cancer. [place]IAL HISTORY[place] . He is on disability because of his lumbar spine problems. The patient does not smoke cigarettes, drink alcoholic beverages, or abuse drugs. ALLERGIES: His chart lists no known drug allergies. HOME MEDICATIONS: Include Norvasc, aspirin, Celexa, TriCor, Monopril, and Crestor. REVIEW OF SYSTEMS: Eyes and Ears: The patient can see and hear okay. Neck: No stiffness. Respiratory and GI: See present illness. Neurologic: No seizures. No loss of motor or sensory function. Bones/Joints/Muscles: The patient has diffuse arthritis. He told me it is worse in his knees and elbows. Integument: No rashes. PHYSICAL EXAMINATION: Vital Signs: Temperature is 98.2 degrees, pulse 60, respirations 16, blood pressure is 119/72. The patient is 6 feet 2 inches tall, and weighs 213 pounds. General: This is an ill-appearing, middle-aged male. He is in no acute distress. HEENT: He can hear my spoken words and see near objects. I did not see any white patches on his tongue. Neck: No meningismus. Lungs: Clear to auscultation. Cardiovascular: Heart rate is regular. Abdomen: The patient's laparoscopic incisions have dressings on them. The dressings are intact. The abdomen is soft, but it is diffusely tender. Also, when the patient took a deep breath, he had pain in the upper part of the abdomen. Integument: No rash. Neurologic: The patient is awake. He can move his extremities. There is no tremor. His sensation is intact to touch. His memory as regarding his medical history is intact. Integument: No rash. Thank you for the consult. cc: MD Shravan Maurer Jr, MD MTDD
[2019-04-30 14:59] LABS: URINE SOURCE CATH
[2019-04-30 15:04] LABS: BILIRUBIN URINE NEGATIVE (NEGATIVE); BLOOD URINE MODERATE (NEGATIVE); COLOR YELLOW; GLUCOSE URINE NEGATIVE (NEGATIVE); KETONE URINE TRACE mg/dL (NEGATIVE); LEUKOCYTES URINE MODERATE (NEGATIVE); NITRITE URINE NEGATIVE (NEGATIVE); PH URINE 5.5; PROTEIN URINE 30 mg/dL (NEGATIVE); SP GRAVITY URINE 1.031; TURBIDITY URINE CLEAR (CLEAR); UROBILINOGEN URINE NORMAL (NORMAL)
[2019-04-30 15:05] LABS: UR EPITHELIAL CELLS <10 /HPF (<10); URINE BACTERIA NEGATIVE /HPF; URINE RBC TNTC /HPF (<10); URINE WBC 20-40 /HPF (<10)
[2019-04-30 15:20] LABS: URINE YEAST NONE SEEN
[2019-04-30] MEDS ORDERED: DIPRIVAN 1% ONE (15:25)
[2019-04-30] MEDS ORDERED: XYLOCAINE-MPF 2% ONE (15:25)
[2019-04-30] MEDS ORDERED: QUELICIN (DOSE) ONE ×2 (15:25→16:07)
--- NOTE | 2019-04-30 16:10 | Diag Imaging Result Doc PS360 ---
EXAM: HIDA SCAN W/O EJECT. FRACTION HISTORY: rule out bile leak TECHNIQUE: Nuclear medicine HIDA scan COMPARISON: None. FINDINGS: 5.4 mCi Choletec administered. There is normal uptake within the liver. Later films show increased activity in the gallbladder fossa and about the right lobe of the liver. IMPRESSION: Bile leak. Dr. Bonilla is aware of the findings. Electronically signed by Austyn Landin 04/30/2019 4:07 PM
[2019-04-30] MEDS ORDERED: SENSORCAINE 0.25%/EPI 1:200,000 ONE (16:24)
[2019-04-30] MEDS ORDERED: LR 1,000 ML ONE (16:24)
[2019-04-30] MEDS ORDERED: EPHEDRINE ONE (17:13)
[2019-04-30] MEDS ORDERED: ZEMURON ONE ×2 (17:21→17:59)
[2019-04-30] MEDS ORDERED: ROBINUL ONE (18:31)
--- NOTE | 2019-04-30 19:06 | ENDOSCOPY OPERATIVE NOTE ---
[facility] ENDOSCOPY OPERATIVE NOTE , ERCP PROCEDURE REPORT EXAM DATE: 04/30/2019 PATIENT NAME: José Dorsey MR #: [id number] BIRTHDATE: 1955 ATTENDING: Virgilio Abernathy MD STATUS: inpatient WOODWORKING MACHINE FEEDER: Jossue Gore and Lola Sood INDICATIONS: The patient is a 64 yr old male here for an ERCP due to established bile leak and abdom inal pain. PROCEDURE PERFORMED: ERCP with stent placement MEDICATIONS: Per Anesthesia CONSENT: The patient understands the risks and benefits of the procedure and understands that these r isks include, but are not limited to: sedation, allergic reaction, infection, perforation and/or bleeding. Alternative means of evaluation and treatment include, among others: physical exam, x-rays, and/or surgical intervention. The patient elects to proceed with this endoscopic procedure. HISTORY AND PHYSICAL: 04/30/2019 function. Hand hygiene and appropriate measures for infection prevention was taken. After the risks, benefits and alternatives of the procedure were thoroughly explained, Informed was verified, confirmed and timeout was successfully executed by the treatment team. With the patient in left semi-prone position, medications were admini stered intravenously.The Pentax [id number] was passed from the mouth into the esophagus and further advanced from the esophagus into the stomach. From stomach scope was directed to the second portion of the duodenum. Major papil la was aligned with the duodenoscope. The scope position was confirmed fluoroscopically. Rest of the findings/therap eutics are given below. The scope was then completely withdrawn from the patient and the procedure completed. The puls e, BP, and O2 saturation were monitored and documented by the physician and the nursing staff throughout the entire procedure. The patient was cared for as planned according to standard protocol. The patient was then discharged to [facility] in stable condition and with appropriate post procedure care. ERCP: A program director/morning show host film prior to endoscope insertion appeared normal. Pancreatic duct cannulation was at tempted using the sphincterotome with guidewire. Cannulation of the pancreatic duct was performed with ease. Superfic ial cannulation was achieved. A pancreatogram was performed. The pancreatic duct system appeared normal with no ev idence of stricture, dilation, stones or filling defects. The Major Papilla was located in the second portion of the duodenum. The major papilla appeared normal. Bile duct cannulation was attempted using the straight catheter with guidewire. Cannulation of the bile duct was performed with ease. Deep cannulation was successfully achieved. A cholangiogram releaved there was a bile leak (extravasation) and extravasation from the cystic duct. Under endosc opic and fluoroscopic guidance, a 8.5Fr X 5cm plastic stent was placed in the bile duct. ADVERSE EVENT: There were no complications. IMPRESSIONS: Bile leak S/P Cholecystectomy RECOMMENDATIONS: 1. Follow up in my office in 6 week(s) 2. Need to have Stent removed in 6-8 weeks. REPEAT EXAM: Return in 6 weeks for ERCP. Virgilio Abernathy MD eSigned: Virgilio Abernathy MD 04/30/2019 7:05 PM cc: Cruzito Bonilla MD
[2019-04-30] MEDS: DILAUDID ONE ×2 (19:12→19:15)
[2019-04-30] MEDS ORDERED: D5 1/2 NS 1,000 ML ONE (19:12)
[2019-04-30] MEDS: D5 1/2 NS 1,000 ML IV SCH (20:30)
--- NOTE | 2019-04-30 22:07 | OPERATIVE NOTE ---
PROCEDURE DATE: 04/30/2019 PREOPERATIVE DIAGNOSIS: Bile leak status post cholecystectomy. POSTOPERATIVE DIAGNOSIS: Bile leak status post cholecystectomy. PROCEDURE: Laparoscopy with placement of drains in the right subhepatic space and in the pelvis. ANESTHESIA: As described in separate procedure note. SURGEON: Dr. Cruzito Bonilla. DESCRIPTION OF PROCEDURE: The patient was in the operating room with successful completion of ERCP and stent placement in the common bile block by Dr. Abernathy. The patient was turned back supine. His abdomen was prepped and draped in the appropriate manner. The skin christelle in the infraumbilical region and the right epigastrium and the lateral right epigastrium were removed. The Surgilon sutures in the fascia of the infraumbilical incision were removed, and a Angle trocar was placed through the old site. The abdomen was insufflated to 3-1/2 L of carbon dioxide. On the right upper epigastric incision, a 10 mm trocar was placed, and a 10 mm suction casino gaming worker was placed in here with aspiration of several 100 mL of bile and old blood. This was sent for routine anaerobic and aerobic cultures. Through the lateral right trocar incision, a new catheter was threaded and placed in the right subphrenic space and hooked to suction. Attention was then taken to the pelvis, and in the left side of the abdomen, an incision was made. A 5 mm trocar was placed, and another 10 MAIDA was threaded down into the pelvis and brought out through the infraumbilical incision. This was anchored with 0 Surgilon and hooked to suction as well. On completion, all trocars were removed. The fascia of the infraumbilical incision was reapproximated with interrupted 0 Vicryl. All skin incisions were closed with stainless steel clips. Sterile dressings were applied. He was awakened and extubated in the operating room and transferred to recovery. ESTIMATED BLOOD LOSS: Around 10-20 mL. cc: MD Shravan Langston Jr, MD
--- NOTE | 2019-04-30 22:22 | PROGRESS NOTE ---
DATE: 04/30/2019 SUBJECTIVE: The patient says he just does not feel as well. He feels like he has been run over by a [employer] truck. He is having body aches. He is 1 day postoperative cholecystectomy for acute and chronic cholecystitis and cholelithiasis. OBJECTIVE: Vital Signs: Stable. He is afebrile at this time. HEENT: Normocephalic. EOMs intact. PERRLA. Throat clear. Lungs: Sound clear to auscultation, but chest x-ray shows either atelectasis or small infiltrate especially the left lower lobe. Heart: Regular rate and rhythm without murmurs, gallops or friction rubs. Abdomen: Soft. Active bowel sounds. No organomegaly or tenderness except for the soreness from his surgery. He has decreased bowel sounds as he did have surgery yesterday. Neurological Exam: Intact grossly. Urinalysis does show pyuria and hematuria consistent with a urinary tract infection. Chest x-ray shows either atelectasis or pneumonia. He had a HIDA scan, which shows a bile leak as well. Consultation was done besides cardiology and surgery with GI and Infectious Disease. He is on Zyvox and Zosyn now. Cultures have been done, and we are awaiting reports. He has had an ERCP with a stent placement. His white count had gone from 6000 to 27,000+. May very well be septic. Awaiting blood cultures. ASSESSMENT: 1. Chest pain. 2. Cardiac workup negative. 3. Acute cholecystitis and cholelithiasis with chronic cholecystitis as well. 4. Postoperative laparoscopic cholecystectomy 1 day. 5. Urinary tract infection. 6. Questionable pneumonia. 7. Bile duct leak. SECONDARY DIAGNOSIS: Bipolar illness. PLAN: We will continue IV antibiotics. Appreciate all the help from the consultants. cc: Shravan Urbina Jr, MD
[2019-04-30] MEDS: CRESTOR PO SCH (22:56)
[2019-04-30] MEDS: TRICOR PO SCH (22:56)
[2019-04-30] MEDS: FLEET ENEMA PR SCH (23:01)
[2019-05-01] MEDS: ZYVOX 600 MG/D5W 600 MG/300 ML IVPB IV SCH ×2 (00:31→12:46)
[2019-05-01] MEDS: MORPHINE IV PRN ×8 (02:39→23:20)
[2019-05-01] MEDS: ZOSYN 4.5 GM in NS 100 ML IV SCH ×5 (04:50→23:16)
[2019-05-01] MEDS: NORCO-10 PO PRN (05:48)
[2019-05-01] MEDS: D5 1/2 NS + KCL 20 MEQ 1,000 ML IV SCH ×2 (06:03→08:34)
[2019-05-01 06:34] LABS: BASO# 0.01 X1000 (0.0-0.2); BASO% 0.1 % (0.0-0.8); EOS# 0.02 X1000 (0.0-0.7); EOS% 0.1 % (0.0-10.0); HEMOGLOBIN 13.4 g/dL (14.0-18.0); IMM GRAN# 0.03 X1000 (0.0-0.04); IMM GRAN% 0.2 % (0.0-0.5); LYMPH# 1.13 X1000 (1.2-3.4); LYMPH% 7.1 % (20.5-51.1); MCH 31.3 PG (27-31); MCHC 33.5 g/dL (33-37); MCV 93.5 FL (81-99); MONO# 0.76 X1000 (0.11-0.59); MONO% 4.8 % (1.7-9.3); MPV 11.6 FL (7.4-10.4); NEUT# 14.03 X1000 (1.4-6.5); NEUT% 87.7 % (42.2-75.2); PLT 180 X1000 (130-400); RBC 4.28 XMIL (4.7-6.1); RDW 12.8 % (11.5-14.5); WBC 15.98 X1000 (4.8-10.8)
--- NOTE | 2019-05-01 06:39 | Diag Imaging Result Doc PS360 ---
CHEST-PORTABLE - 05/01/2019 INDICATION: post op orders COMPARISON: 04/30/2019 FINDINGS: Stable critically low lung volumes. Stable hazy bibasilar atelectasis. No new infiltrates. IMPRESSION: Critically low lung volumes with bibasilar atelectasis. Electronically signed by Maximiliano Bauman 05/01/2019 6:37 AM
[2019-05-01 06:53] LABS: ALBUMIN 2.9 g/dL (3.5-5.0); CALCIUM 8.2 mg/dL (8.8-10.2); CREATININE 1.7 mg/dL (0.7-1.2); POTASSIUM 3.9 mmol/L (3.5-5.1); TOTAL BILIRUBIN 1.08 mg/dL (0.20-1.00); TOTAL PROTEIN 5.8 g/dL (6.3-8.3)
[2019-05-01 08:03] LABS: BANDS 4 % (0-1); LYMPHS 8 % (21-51); SEGS 86 % (42-75)
[2019-05-01] MEDS: MONOPRIL PO SCH ×2 (08:35→21:55)
[2019-05-01] MEDS: NORVASC PO SCH (08:35)
[2019-05-01] MEDS: D5 1/2 NS 1,000 ML IV SCH ×2 (08:48→15:45)
[2019-05-01 09:11] LABS: ALLEN TEST YES; BE 4.2 mmoll (-3.0-3.0); BLOOD TYPE ARTERIAL; HCO3-(ACT) 28.1 mmoll (20.0-26.0); METHB 0.8 % (0.0-1.5); O2(CT) 17.7 mL/dL (15.0-23.0); O2HB 93.8 % (95.0-99.0); PCO2(98.6) 40 mmHg (35-45); PO2(98.6) 62 mmHg (60-100); SAMPLE BLOOD; SAO2 96.3 % (95.0-100.0); THB 13.4 g/dL (11.5-17.4); pH(98.6) 7.46 (7.35-7.45)
[2019-05-01 09:12] LABS: MODALITY CANNULA
--- NOTE | 2019-05-01 09:47 | Diag Imaging Result Doc PS360 ---
ERCP-BILIARY AND PANCREATIC - 04/30/2019 INDICATION: bile leak TECHNIQUE: The exam was performed by the patient's endoscopist. Two images were obtained. COMPARISON: Prior exams FINDINGS: Injection of the common bile duct was performed. A common bile duct stent was placed in good position. IMPRESSION: No complication. Electronically signed by Maximiliano Bauman 05/01/2019 9:45 AM
[2019-05-01] MEDS: SODIUM CHLORIDE 0.9% INJ SCH (10:47)
[2019-05-01] MEDS: FLOMAX PO SCH (10:47)
[2019-05-01] MEDS: PROTONIX IV SCH (10:47)
--- NOTE | 2019-05-01 13:04 | PROGRESS NOTE ---
DATE: 05/01/2019 Patient still hurting. He feels very bad. He is aching all over. Feels extremely tired. The patient initially came in with chest pain, nausea, and vomiting. Cardiac workup was negative. GI workup showed acute and chronic cholecystitis with cholelithiasis. He had surgery with a laparoscopic cholecystectomy. Yesterday morning he had a 27,000+ white count. He did not have any fever. CT scan showed a bile leak. He also has some basilar atelectasis which could be early pneumonia or just atelectasis. Urine also showed pus. Patient underwent drain placement for the bile leak and then had an ERCP with a stent placement by Dr. Abernathy. Still felt very bad today. [place] that he probably has a peritonitis. He was moved to the unit because of his symptoms. Urine culture showed no growth so far. Blood cultures are pending. Anaerobic cultures from the abdomen showed no growth from the abdomen. OBJECTIVE: Vital signs: Show blood pressure 130/69, respirations 20, pulse 65, temperature 98.8 degrees Fahrenheit. HEENT: He is normocephalic. EOMs intact. PERRLA. Throat clear. Lungs: Fairly clear to auscultation. Heart: Regular rate and rhythm without murmurs, gallops, friction rubs. Abdomen: Somewhat tense with tenderness and perhaps a little rebound with this. Very likely could be a peritonitis from the bile. Neurological: Exam intact grossly. Patient says he feels horrible. LABORATORY: Blood gas done showed a pCO2 of 62, PO2 of 40, pH of 7.46 on 30% FiO2, so he does have a little bit of hypoxia. White count 15,980, hemoglobin 13.4, hemoglobin 14.0, platelet count 180,000. Lactate 0.60. Sodium 138, potassium 3.9, chloride 102, creatinine 1.7, BUN 23. The patient does have chronic kidney disease. Bilirubin is up to 1.08. AST 69, ALT 79; those are both slightly lower. Urine yesterday showed 20 to 40 WBCs, but urine culture is negative so far. ASSESSMENT: 1. Chest pain. Cardiac workup negative. 2. Cholecystitis and cholelithiasis. 3. Postoperative day 2. 4. Postoperative day 1 for drain placement. 5. Postoperative endoscopic retrograde cholangiopancreatography and stent placement, day #1. 6. Probable peritonitis. 7. Rule out sepsis. 8. Atelectasis. 9. Mild hypoxia. PLAN: We will continue to support. The patient is critical if this is sepsis. White count has improved, however. Lactate is normal. Cultures are pending. We will continue care. cc: Shravan Urbina Jr, MD
--- NOTE | 2019-05-01 13:33 | INFECTIOUS DISEASE PROGRESS NO ---
DATE: 05/01/2019 PRESENT ILLNESS: Mr. Dorsey is being treated status post cholecystectomy for a bile leak with peritonitis and leukocytosis. He has had laparoscopic drain placements and an ERCP with stent placement, and seems to be improving. He is afebrile with significant decrease in his leukocytosis today. The chest x-ray shows hazy, bibasilar atelectasis which may represent pneumonia. MEDICATIONS: He is on day 1 of Zyvox 600 mg IV every 12 hours and Zosyn 4.5 g IV every 6 hours. PHYSICAL EXAMINATION: Vital Signs: Temperature is 98.8 degrees, pulse rate 65, respiratory rate 20, blood pressure 130/69. O2 saturation is 96% on 5 L nasal cannula. General: This is an acutely ill-appearing, middle-aged gentleman. He is lying in bed, currently in mild distress due to abdominal pain. HEENT: Atraumatic, normocephalic. Oral mucous membranes are pink and moist. Conjunctivae are pink. Neck: Supple. Trachea is midline. Cardiovascular: Heart rate and rhythm are regular. Normal sinus rhythm on the monitor. Respiratory: Lung sounds are clear in the upper lobes. Mid and bases are diminished bilaterally. Abdomen: Extremely tender with JPs noted to the left and right side. The right MAIDA bulb has a small amount of brown drainage noted while the left MAIDA has green drainage. There is also an incision on the left side of the abdomen which has green drainage to the dressing. Other incision sites have clean, dry dressings. The abdomen is mildly distended. Bowel sounds are audible. Neurologic: He is awake, alert, and oriented. Able to move all extremities in the bed with some decrease due to pain. LABORATORY AND X-RAY: Today his white count is 15.98, hemoglobin 13.4, platelet count 180,000. On 3 L nasal cannula this morning, his pH is 7.46, pCO2 40, PO2 62, HCO3 28.1. Creatinine is 1.7, GFR is 41. Total bilirubin is 1.08, AST 69, ALT 79, alkaline phosphatase 52. Amylase is 894. The urinalysis done yesterday showed no urine bacteria with white blood cells 20-40. There is a urine culture which is pending and has shown no growth on the preliminary report. The Gram stain of the abdomen done yesterday shows no bacteria. The culture is pending, and no anaerobes on the preliminary report to the abdominal wall culture. Blood cultures are also pending that were done yesterday. Chest x-ray done today shows stable, hazy basilar atelectasis with no new infiltrates and critically low lung volumes. An ERCP x-ray done yesterday afternoon shows a common bile duct stent was placed in good position. ASSESSMENT AND PLAN: Mr. Dorsey is status post cholecystectomy with subsequent bile leak with laparoscopic drain placements and endoscopic retrograde cholangiopancreatography with stent placement. He appears to be improving after a significant leukocytosis spike. He has been afebrile. The leukocytosis is improving. He has been receiving Zyvox and Zosyn since yesterday, which we will continue. I have talked to him about the fact that there is a possible pneumonia and that it will get worse if he does not cough and deep breathe. There is an incentive spirometer at bedside. I talked him about splinting his abdomen with a pillow to cough and deep breathe regularly. At this point, we will continue medications as ordered, and follow cultures for the final results. These plans have been discussed with and recommended by Dr. Curry. COMORBIDITIES: For Mr. Dorsey include previous stroke and bipolar disorder. Dictated by KULWINDER Shields for Kranthi Curry MD cc: MD Shravan Maurer Jr, MD MTDD
[2019-05-01] MEDS: MYCOSTATIN SUSP PO SCH ×2 (17:45→21:56)
--- NOTE | 2019-05-01 18:25 | GASTROENTEROLOGY PROGRESS NOTE ---
DATE: 05/01/2019 SUBJECTIVE: Patient was transferred to the ICU this morning. He is complaining of abdominal pain. He had findings of bile leak status post cholecystectomy. He had an ERCP with a stent placed on 04/30/2019. OBJECTIVE: Vital Signs: Temperature 99.6 degrees, pulse 70, respirations 18, blood pressure 158/92. General: Patient was resting, but aroused easily. He is complaining of abdominal pain. He had imaging studies, a chest x-ray, that showed critically low lung volumes and bibasilar atelectasis, so he was transferred to the ICU. Abdomen: Tender. He has bilateral drains in place. LABORATORY: Hematology: WBC 15.98, which has decreased from 27.83 yesterday; hemoglobin 13.4, hematocrit 40.0, MCV 93.5, platelet 180,000. Chemistry: Sodium 138, potassium 3.9, chloride 102, CO2 of 27, BUN 23, creatinine 1.7, glucose 107, calcium 8.2. Total bilirubin 1.08, AST 69, ALT 79, alkaline phosphatase 50. ASSESSMENT: 1. Bile leak status post cholecystectomy. 2. Status post endoscopic retrograde cholangiopancreatography with stent placement. 3. Leukocytosis has improved. 4. Elevated amylase, possible pancreatitis related to recent procedures. PLAN: Continue symptomatic treatment and supportive care. We will continue to follow. Further plans to be made according to his progress. I have discussed this case with Dr. Abernathy. Dictated by KULWINDER Durant for Virgilio Abernathy MD cc: KULWINDER Orourke MD Roger H. Moss Jr, MD
--- NOTE | 2019-05-01 20:32 | PULMONOLOGY CONSULTATION ---
DATE: 05/01/2019 CHIEF COMPLAINT: Chest pain. HISTORY OF PRESENT ILLNESS: This is a 64-year-old, white male, who presented to the ER with a complaint of chest pain initially. He recently underwent a cholecystectomy for bile leak with peritonitis and leukocytosis. He had laparoscopic drain placement and ERCP with stent placement with improvement. Recent chest x-ray shows hazy bibasilar atelectasis which could indicate pneumonia. FAMILY HISTORY: Positive for diabetes mellitus, hypertension, ID, stroke, and cancer. SOCIAL HISTORY: He is a , on disability. Denies tobacco, alcohol, or illicit drug use. ALLERGIES: No known drug allergies. HOME MEDICATIONS: Norvasc, aspirin, Celexa, Tricor, Monopril, and Crestor. REVIEW OF SYSTEMS: A 10-point review of systems was conducted and the pertinent is listed within the HPI. Otherwise noncontributory. PHYSICAL EXAMINATION: This is a 64-year-old, male, resting quietly in bed at the present time in no acute distress.Vital Signs: Blood pressure 130/69, temperature 98.8 degrees, respirations 20, pulse 62, O2 saturation 96% on room air. HEENT: Head is atraumatic, normocephalic. Trachea midline. Pupils equal and reactive to light and accommodation. Respiratory: Diminished throughout bilateral lungs. Nonlabored. Cardiovascular: S1 and S2 auscultated. No gallops, murmurs, or rubs noted. Abdomen: Soft, tender, especially when taking a deep breath. Extremities: Without edema, clubbing, or cyanosis. LABORATORY DATA: White blood cells 15.98, red blood cells 4.28, hemoglobin 13.4, hematocrit 40.0. PH 7.46, pCO2 of 40, PO2 of 62, HC03 of 28.1, base excess 4.2, oxyhemoglobin 93.8. Sodium 138, potassium 3.9, chloride 102, carbon dioxide 27, BUN 23, creatinine 1.7, glucose 107, calcium 8.2. AST 69, ALT 79, total protein 5.8, albumin 2.9, amylase 894. DIAGNOSTIC DATA: X-ray mentioned in HPI. ASSESSMENT AND PLAN: 1. Probable pneumonia. Continue antibiotics as prescribed. Leukocytosis improving. 2. Status post laparoscopic cholecystectomy. 3. Hypertension. We will continue to monitor. 4. Continue deep vein thrombosis and gastrointestinal prophylaxis. 5. We will obtain a V/Q scan, continue incentive spirometry, and follow ABGs. Thank you for the courtesy of this consult. Dictated by KULWINDER Mccloud for Huy Anders MD cc: KULWINDER Mccloud MD Roger H. Moss Jr, MD
[2019-05-01] MEDS: FLEET ENEMA PR SCH (21:55)
[2019-05-01] MEDS: CRESTOR PO SCH (21:55)
[2019-05-01] MEDS: TRICOR PO SCH (21:56)
[2019-05-02] MEDS: ZYVOX 600 MG/D5W 600 MG/300 ML IVPB IV SCH ×2 (00:23→11:14)
[2019-05-02] MEDS: MORPHINE IV PRN ×5 (03:38→23:20)
[2019-05-02] MEDS: D5 1/2 NS 1,000 ML IV SCH ×3 (03:39→18:38)
[2019-05-02 04:40] LABS: ALLEN TEST YES; BE 3.4 mmoll (-3.0-3.0); BLOOD TYPE ARTERIAL; HCO3-(ACT) 27.5 mmoll (20.0-26.0); O2(CT) 20.7 mL/dL (15.0-23.0); O2HB 94.9 % (95.0-99.0); PCO2(98.6) 44 mmHg (35-45); PO2(98.6) 77 mmHg (60-100); SAMPLE BLOOD; THB 15.5 g/dL (11.5-17.4); pH(98.6) 7.42 (7.35-7.45)
[2019-05-02 04:41] LABS: MODALITY CANNULA
[2019-05-02] MEDS: ZOSYN 4.5 GM in NS 100 ML IV SCH ×4 (05:48→23:16)
[2019-05-02] MEDS: LOVENOX SUBQ SCH (05:48)
[2019-05-02 06:20] LABS: AGAP 9; ALB/GLOB RATIO 0.8; ALBUMIN 2.6 g/dL (3.5-5.0); ALKALINE PHOSPHATASE 87 U/L (32-122); BUN 18 mg/dL (8-22); CALCIUM 8.2 mg/dL (8.8-10.2); CHLORIDE 94 mmol/L (98-107); COSMO 261; CREATININE 1.2 mg/dL (0.7-1.2); ESTIMATED GFR > 60; GLUCOSE 135 mg/dL (70-104); GOT 31 U/L (10-34); GPT 47 U/L (10-44); POTASSIUM 3.9 mmol/L (3.5-5.1); SODIUM 128 mmol/L (136-145); TCO2 25 mmol/L (25-35)
[2019-05-02 06:33] LABS: BASO# 0.01 X1000 (0.0-0.2); BASO% 0.1 % (0.0-0.8); EOS# 0.05 X1000 (0.0-0.7); EOS% 0.3 % (0.0-10.0); HEMATOCRIT 38.3 % (42.0-52.0); IMM GRAN# 0.03 X1000 (0.0-0.04); IMM GRAN% 0.2 % (0.0-0.5); LYMPH# 0.75 X1000 (1.2-3.4); LYMPH% 4.5 % (20.5-51.1); MCH 31.3 PG (27-31); MCHC 33.9 g/dL (33-37); MCV 92.1 FL (81-99); MONO# 0.73 X1000 (0.11-0.59); MONO% 4.4 % (1.7-9.3); MPV 11.8 FL (7.4-10.4); NEUT# 14.99 X1000 (1.4-6.5); NEUT% 90.5 % (42.2-75.2); PLT 188 X1000 (130-400); RBC 4.16 XMIL (4.7-6.1); RDW 12.3 % (11.5-14.5); WBC 16.56 X1000 (4.8-10.8)
[2019-05-02 07:36] LABS: BANDS 2 % (0-1); LYMPHS 12 % (21-51); MONO 2 % (1-9); SEGS 84 % (42-75)
--- NOTE | 2019-05-02 07:56 | Diag Imaging Result Doc PS360 ---
EXAM: CHEST-PORTABLE INDICATION: post op TECHNIQUE: One view COMPARISON: 05/01/2019 FINDINGS: Lung volumes remain low. Bibasilar linear densities most likely representing atelectasis are essentially unchanged. No new consolidation is identified. Cardiac silhouette is stable. IMPRESSION: Stable chest. Electronically signed by Francis Cook 05/02/2019 7:53 AM
[2019-05-02] MEDS: MONOPRIL PO SCH ×2 (08:46→23:15)
[2019-05-02] MEDS: MYCOSTATIN SUSP PO SCH ×3 (08:46→17:00)
[2019-05-02] MEDS: NORVASC PO SCH (08:47)
[2019-05-02] MEDS: ZOFRAN IV PRN ×2 (09:11→20:39)
[2019-05-02 10:08] LABS: ALLEN TEST YES; BE 3.6 mmoll (-3.0-3.0); BLOOD TYPE ARTERIAL; HCO3-(ACT) 27.6 mmoll (20.0-26.0); METHB 0.9 % (0.0-1.5); O2(CT) 17.9 mL/dL (15.0-23.0); O2HB 92.5 % (95.0-99.0); PCO2(98.6) 43 mmHg (35-45); PO2(98.6) 60 mmHg (60-100); SAMPLE BLOOD; SAO2 94.7 % (95.0-100.0); THB 13.8 g/dL (11.5-17.4); pH(98.6) 7.43 (7.35-7.45)
[2019-05-02 10:09] LABS: MODALITY CANNULA
[2019-05-02] MEDS: PROTONIX IV SCH (11:10)
[2019-05-02] MEDS: FLOMAX PO SCH (11:10)
[2019-05-02] MEDS: SODIUM CHLORIDE 0.9% INJ SCH (11:10)
--- NOTE | 2019-05-02 12:03 | PROGRESS NOTE ---
DATE: 05/02/2019 SUBJECTIVE: A 64-year-old pleasant white gentleman was admitted to the hospital on 04/25/2019 for atypical chest pain. Subsequently, patient was ruled out for MA and he had a stress test, was negative. The patient was found to have gallstones and subsequently was operated on by Dr. Bonilla. Postoperative course was complicated by leak and elevation of amylase. The patient had laparoscopic placement of drains in the right subhepatic space followed by ERCP with a stent. He has a lot of pain, nausea. He has a Steven was placed. He is not eating well. Chest x-ray was also reviewed with atelectasis. Appropriate consults were obtained which includes Dr. Abernathy, Dr. Curry. REVIEW OF SYSTEMS: No chest pain. Basically nausea, abdominal pain. Rest of the review of systems are normal. PAST MEDICAL HISTORY: Reviewed. PAST SURGICAL HISTORY: Reviewed. MEDICINES: Reviewed. ALLERGIES: Not known. OBJECTIVE: Vital Signs: Temperature is 98 degrees. Vitals are stable. HEENT: Within normal limits. Neck: Supple. Poor air entry. Heart: Sounds are tachycardic. Abdomen: Belly is soft and he has a MAIDA bile drain noted. Steven was placed. Left leg is slightly swollen than the right side with compression stockings. LABORATORY DATA: White cell count 16.5, hematocrit 38, platelet count 188,000. ABG, pH is 7.43, pCO2 43, PO2 60, on 36%. Sodium 128, potassium 3.9, BUN 18, creatinine 1.2, glucose 135, and amylase is coming down. Urinalysis, slightly blood. All the cultures were negative. Chest x- ray, poor inspiratory effort with atelectasis. ASSESSMENT AND PLAN: 1. Postoperative atelectasis and pneumonia. Plan is incentive spirometry, oxygen. Dr. Anders is going to do V/Q scan. Continue on Lovenox 40 mg subcutaneously daily. 2. Laparoscopic cholecystectomy with a bile leak and elevation of white cell count. Slowly improving. Currently patient is on Zyvox 600 mg IV q.12, Zosyn 4.5 q.6. 3. Continue IV fluids, D5 half 125 an hour and gastrointestinal prophylaxis with IV Protonix. Continue to monitor daily x-rays CBC, SMA 7, as well as amylase in the morning. Discussed with Dr. Bonilla as well as the patient. I appreciated all the consultants and will follow up. LEVEL OF DOCUMENTATION: 35 minutes. cc: MD Shravan Taylor Jr, MD
--- NOTE | 2019-05-02 14:57 | GASTROENTEROLOGY PROGRESS NOTE ---
DATE: 05/02/2019 SUBJECTIVE: Patient is still complaining of abdominal pain. His liver function tests and amylase have improved. OBJECTIVE: Vital Signs: Temperature 98.1 degrees, pulse 65, respirations 14, blood pressure 119/75. General: Patient is awake and alert, complaining of pain and some nausea. Abdomen: With drains on bilateral sides. Left drain with serosanguineous drainage. Right drain with greenish drainage noted. LABORATORY: Hematology: WBC 16.56, hemoglobin 13.0, hematocrit 38.3. Chemistry: Sodium 128, potassium 3.9, chloride 94, CO2 25, BUN 18, creatinine 1.2, glucose 135, calcium 8.2, total bilirubin 0.90, AST 31, ALT 47, alkaline phosphatase 87, amylase 478. ASSESSMENT AND PLAN: 1. Bile leak status post cholecystectomy. 2. ERCP with stent placement. 3. Leukocytosis, improving. 4. Elevated liver function tests are improving. Elevated amylase has improved also. 5. Abdominal pain postoperatively. Will continue symptomatic treatment and supportive care. Will continue to follow. Further plans will be made according to his progress. I have discussed this case with Dr. Abernathy. Dictated by KULWINDER Durant for Virgilio Abernathy MD cc: KULWINDER Orourke MD Roger H. Moss Jr, MD
[2019-05-02] MEDS: NORCO-10 PO PRN (18:38)
[2019-05-02] MEDS ORDERED: REGLAN IV SCH (23:30)
[2019-05-03] MEDS: CRESTOR PO SCH ×2 (00:26→21:00)
[2019-05-03] MEDS: FLEET ENEMA PR SCH ×2 (00:26→21:35)
[2019-05-03] MEDS: TRICOR PO SCH ×2 (00:27→21:00)
[2019-05-03] MEDS: MYCOSTATIN SUSP PO SCH ×5 (00:27→21:00)
[2019-05-03] MEDS ORDERED: REGLAN IV PRN (00:28)
[2019-05-03] MEDS: D5 1/2 NS 1,000 ML IV SCH ×3 (00:42→13:07)
[2019-05-03] MEDS: ZYVOX 600 MG/D5W 600 MG/300 ML IVPB IV SCH ×2 (00:42→10:59)
[2019-05-03] MEDS: ZOSYN 4.5 GM in NS 100 ML IV SCH ×3 (04:46→16:34)
[2019-05-03] MEDS: LOVENOX SUBQ SCH (04:59)
[2019-05-03 05:47] LABS: BASO# 0.01 X1000 (0.0-0.2); BASO% 0.1 % (0.0-0.8); EOS% 0.7 % (0.0-10.0); HEMATOCRIT 37.3 % (42.0-52.0); HEMOGLOBIN 12.9 g/dL (14.0-18.0); IMM GRAN# 0.02 X1000 (0.0-0.04); IMM GRAN% 0.1 % (0.0-0.5); LYMPH# 0.98 X1000 (1.2-3.4); LYMPH% 6.5 % (20.5-51.1); MCH 31.3 PG (27-31); MCHC 34.6 g/dL (33-37); MCV 90.5 FL (81-99); MONO# 1.02 X1000 (0.11-0.59); MONO% 6.7 % (1.7-9.3); MPV 11.3 FL (7.4-10.4); NEUT# 13.04 X1000 (1.4-6.5); NEUT% 85.9 % (42.2-75.2); PLT 214 X1000 (130-400); RBC 4.12 XMIL (4.7-6.1); RDW 12.1 % (11.5-14.5); WBC 15.17 X1000 (4.8-10.8)
[2019-05-03 05:55] LABS: AGAP 11; ALB/GLOB RATIO 0.8; ALBUMIN 2.7 g/dL (3.5-5.0); ALKALINE PHOSPHATASE 61 U/L (32-122); AMYLASE 152 U/L (20-200); BUN 14 mg/dL (8-22); CALCIUM 8.3 mg/dL (8.8-10.2); CHLORIDE 100 mmol/L (98-107); COSMO 280; ESTIMATED GFR > 60; GLUCOSE 139 mg/dL (70-104); GOT 17 U/L (10-34); GPT 31 U/L (10-44); POTASSIUM 3.7 mmol/L (3.5-5.1); SODIUM 139 mmol/L (136-145); TCO2 28 mmol/L (25-35); TOTAL PROTEIN 6.1 g/dL (6.3-8.3)
[2019-05-03] MEDS ORDERED: HALDOL IV PRN (08:02)
--- NOTE | 2019-05-03 08:11 | Diag Imaging Result Doc PS360 ---
EXAM: CHEST-PORTABLE INDICATION: respiratory failure TECHNIQUE: One view COMPARISON: 05/03/2019 and 05/02/2019 FINDINGS: The NG tube is in stable position. The lung volumes remain low. Bibasilar linear densities that probably represent atelectasis or unchanged. No new consolidation is identified. Cardiac silhouette is stable. IMPRESSION: Stable chest. Electronically signed by Francis Cook 05/03/2019 8:09 AM
--- NOTE | 2019-05-03 08:13 | Diag Imaging Result Doc PS360 ---
EXAM: KUB ABDOMEN INDICATION: nausea/vomiting TECHNIQUE: One view COMPARISON: None available. FINDINGS: There are several moderately distended loops of bowel. This is predominantly colonic this may be related to postsurgical ileus. Skin christelle project over the abdomen. A MAIDA drain projects over the pelvis. IMPRESSION: Several moderately gas-distended loops of bowel that is predominantly colonic. Electronically signed by Francis Cook 05/03/2019 8:11 AM
--- NOTE | 2019-05-03 08:31 | Diag Imaging Result Doc PS360 ---
EXAM: CHEST-1 VIEW INDICATION: confirm NGT placement TECHNIQUE: One view COMPARISON: 05/02/2019 FINDINGS: The newly placed NG tube projects below the diaphragm and is assumed to be in the lumen of the stomach in the expected position. There are multiple gas-distended loops of bowel likely representing surgical ileus. Metallic christelle project of the abdomen. Views of the lung bases are very limited due to focus on the NG tube. They are probably stable. IMPRESSION: Newly placed NG tube identified in the expected position. Electronically signed by Francsi Cook 05/03/2019 8:29 AM
[2019-05-03] MEDS: MONOPRIL PO SCH ×2 (08:58→21:00)
[2019-05-03] MEDS: NORVASC PO SCH (08:58)
[2019-05-03] MEDS: MORPHINE IV PRN ×5 (09:44→21:00)
[2019-05-03] MEDS ORDERED: D10W 1,000 ML IV SCH (10:30)
[2019-05-03] MEDS: PROTONIX IV SCH (10:34)
[2019-05-03] MEDS: SODIUM CHLORIDE 0.9% INJ SCH (10:34)
[2019-05-03] MEDS: FLOMAX PO SCH ×2 (10:34→16:24)
[2019-05-03] MEDS: [UNRECOGNIZED DRUG - OTHER] IV SCH ×10 (11:30)
[2019-05-03] MEDS: LIPOSYN 20% 500 ML IV SCH (11:30)
[2019-05-03] MEDS: CALCIUM CHLORIDE IV SCH ×10 (11:30)
[2019-05-03] MEDS: TPN ELECTROLYTES IV SCH ×10 (11:30)
[2019-05-03] MEDS: MAGNESIUM SULFATE IV SCH ×10 (11:30)
--- NOTE | 2019-05-03 12:18 | PROGRESS NOTE ---
DATE: 05/03/2019 SUBJECTIVE: A 64-year-old white gentleman over the last 24 hours. I was called in the middle of the night that he has abdominal distention. He threw up of 400 mL of bile. I spoke to the nurse. Please communicate with Dr. Bonilla. Subsequently, NG tube was placed, drained 400 mL of bile, gastric contents. The patient looks stable, and he is in discomfort, but not in pain. No respiratory distress. Triple-lumen catheter was placed on the right side. Followup chest x-ray shows some stable atelectasis noted in both bases. OBJECTIVE: Vital Signs: Temp is 98.6 degrees, pulse 60, blood pressure is 148/87. HEENT: NG tube with low wall intermittent suction. Central line on the right side. Chest: Bilateral air entry with atelectasis. He had a biliary drain, MAIDA drain noted, and stockings, and Steven catheter was placed. LABORATORY DATA: White cell count 15, hematocrit 37.3, platelets 214,000. Sodium 139, potassium 3.7, chloride 100, BUN 14, creatinine 1.0, glucose 139. Liver function tests were normal. ASSESSMENT AND PLAN: 1. Ileus. Nasogastric tube with low wall suction. 2. Postoperative atelectasis. Incentive spirometry. 3. Triple-lumen catheter. Anticipating total parenteral nutrition. Continue intravenous fluids. 4. The patient has already had endoscopic retrograde cholangiopancreatography with stent, Yury- Acharya drain, bilirubin drain as per Dr. Bonilla. 5. Dr. Anders is going to do CT angiogram to rule out pulmonary embolism. Hold his medications, Crestor, amlodipine, fenofibrate. 6. Deep venous thrombosis prophylaxis with Lovenox. 7. Gastrointestinal prophylaxis with intravenous Protonix. Continue the antibiotics with Zosyn and Zyvox. Continue to monitor daily CBC, CMP. The patient looks stable. Appreciate the consultants. LEVEL OF DOCUMENTATION: 35 minutes. cc: MD Shravan Taylor Jr, MD
--- NOTE | 2019-05-03 12:32 | Diag Imaging Result Doc PS360 ---
EXAM: CHEST-PORTABLE INDICATION: central line placement TECHNIQUE: One view COMPARISON: 05/03/2019 FINDINGS: The NG tube is in stable position. There is a newly placed right central line. The tip projects over the region of the atriocaval junction in the expected position. There is no evidence of pneumothorax postplacement. Otherwise, the chest is stable. IMPRESSION: Interval placement of right PICC line as described with no evidence of pneumothorax. Electronically signed by Francis Cook 05/03/2019 12:30 PM
[2019-05-03] MEDS: ZOFRAN IV PRN (12:54)
--- NOTE | 2019-05-03 14:13 | Diag Imaging Result Doc PS360 ---
EXAM: CT ANGIOGRM PULMONARY ARTERIES INDICATION: rule out PE TECHNIQUE: This exam was performed using automated exposure control, adjustment of mA or kV according to patient size, and/or use of iterative reconstruction technique. Thin section axial images and 3-D MIPS were obtained. COMPARISON: 04/01/2014 FINDINGS: There is no evidence of pulmonary embolism. There is stable mild aneurysmal dilation of the ascending aorta measuring up to 4.1 cm in diameter. There is no evidence of aortic dissection. There is no evidence of significant mediastinal or hilar lymphadenopathy. Heart is mildly prominent. There is a moderate-sized right pleural effusion and a small left effusion. There is significant atelectasis at both lower lobes, more prominent on the right. There is small volume ascites tracking around the liver. Limited views of the upper abdomen are essentially unremarkable, otherwise. IMPRESSION: 1.Moderate-sized right pleural effusion and small left effusion with significant atelectasis at both lung bases. 2.No evidence of pulmonary embolism. Electronically signed by Francis Cook 05/03/2019 2:11 PM
--- NOTE | 2019-05-03 16:28 | INFECTIOUS DISEASE PROGRESS NO ---
DATE: 05/03/2019 PRESENT ILLNESS: The patient has bile peritonitis. He on his angiogram does not have pneumonia, but he does have some bibasilar atelectasis and pleural effusions. All of his cultures from the blood and the abdomen are sterile. Patient has oral candidiasis. MEDICATIONS: The patient is on Zyvox and Zosyn for a total of 3 days. The patient also is getting nystatin swish and swallow for oral candidiasis. PHYSICAL EXAMINATION: Vital Signs: Temperature is 100 degrees, pulse 62, respirations 19, blood pressure 146/80. General: This is an ill-appearing, middle-aged male. He is having quite a bit of pain from his abdomen. Head/eyes/ears/nose/throat: He can hear my spoken words and see near objects. His white patches in his mouth have almost completely cleared. Neck: No pain with movement of his neck. Thorax: Patient has a subclavian catheter in place. The site is not erythematous or draining purulence. Cardiovascular: Heart rate is regular. Lungs: Clear to auscultation. Abdomen: Soft. It was not tender to light palpation. Two separate drains are in place to drain the patient's bile. Neurologic: The patient is awake. He can move his extremities. There is no tremor. LAB AND X-RAY STUDIES: Pulmonary angiogram showed no pulmonary edema. It did show bibasilar atelectasis and pleural effusions. CBC shows a white count of 15,170, hemoglobin 12.9, and platelet count 214,000. Creatinine is 1. GFR is greater than 60. Blood, urine and abdominal cultures are all negative as mentioned above. ASSESSMENT AND PLAN: The patient has bile peritonitis. Despite being on antibiotics he continues to have fever and leukocytosis the exact origin of which is uncertain to me. Possibly his leukocytosis could be occurring because of bile peritonitis but I am not certain about that. I am going to go ahead and start the patient on micafungin in case he is developing a superimposed infection. COMORBIDITIES: The patient previously had a stroke and bipolar disorder and recently had a laparoscopic cholecystectomy. cc: MD Shravan Maurer Jr, MD
[2019-05-03] MEDS: MYCAMINE 100 MG in NS 100 ML IV SCH (16:34)
[2019-05-04] MEDS: ZOSYN 4.5 GM in NS 100 ML IV SCH ×5 (00:24→23:05)
[2019-05-04] MEDS: ZYVOX 600 MG/D5W 600 MG/300 ML IVPB IV SCH ×2 (00:24→11:28)
[2019-05-04] MEDS: D5 1/2 NS 1,000 ML IV SCH ×2 (01:58→15:21)
[2019-05-04] MEDS: MORPHINE IV PRN ×4 (05:38→23:06)
[2019-05-04] MEDS: LOVENOX SUBQ SCH (05:39)
[2019-05-04 06:26] LABS: BASO# 0.02 X1000 (0.0-0.2); BASO% 0.2 % (0.0-0.8); EOS# 0.26 X1000 (0.0-0.7); HEMATOCRIT 37.9 % (42.0-52.0); HEMOGLOBIN 12.9 g/dL (14.0-18.0); IMM GRAN# 0.05 X1000 (0.0-0.04); IMM GRAN% 0.4 % (0.0-0.5); LYMPH# 0.92 X1000 (1.2-3.4); MCH 30.6 PG (27-31); MONO# 1.28 X1000 (0.11-0.59); MONO% 9.7 % (1.7-9.3); MPV 11.1 FL (7.4-10.4); NEUT% 80.7 % (42.2-75.2); PLT 229 X1000 (130-400); RBC 4.21 XMIL (4.7-6.1); RDW 12.2 % (11.5-14.5); WBC 13.23 X1000 (4.8-10.8)
[2019-05-04 06:40] LABS: MAGNESIUM 2.2 mg/dL (1.5-2.7); PHOSPHORUS 1.2 mg/dL (2.7-4.5)
[2019-05-04 06:41] LABS: AGAP 6; ALB/GLOB RATIO 0.8; ALBUMIN 2.8 g/dL (3.5-5.0); ALKALINE PHOSPHATASE 73 U/L (32-122); BUN 10 mg/dL (8-22); CALCIUM 8.3 mg/dL (8.8-10.2); CHLORIDE 98 mmol/L (98-107); COSMO 272; CREATININE 1.1 mg/dL (0.7-1.2); ESTIMATED GFR > 60; GLUCOSE 158 mg/dL (70-104); GOT 13 U/L (10-34); GPT 22 U/L (10-44); POTASSIUM 3.4 mmol/L (3.5-5.1); SODIUM 135 mmol/L (136-145); TCO2 31 mmol/L (25-35); TOTAL BILIRUBIN 0.77 mg/dL (0.20-1.00); TOTAL PROTEIN 6.1 g/dL (6.3-8.3)
[2019-05-04] MEDS: [UNRECOGNIZED DRUG - OTHER] IV SCH ×10 (07:55)
[2019-05-04] MEDS: MAGNESIUM SULFATE IV SCH ×10 (07:55)
[2019-05-04] MEDS: CALCIUM CHLORIDE IV SCH ×10 (07:55)
[2019-05-04] MEDS: TPN ELECTROLYTES IV SCH ×10 (07:55)
--- NOTE | 2019-05-04 08:24 | PROGRESS NOTE ---
DATE: 05/04/2019 SUBJECTIVE: A 64-year-old, white gentleman, admitted with chest pain. TX ruled out by negative cardiac isoenzymes. The patient underwent nuclear stress test; it was negative for reversible ischemia or inducible ischemia. The patient had abdominal ultrasound done, which revealed marked dilated patient of the left renal pelvis and cholelithiasis. Patient underwent cholecystectomy. Postoperatively, the patient did have ERCP and also found to have some bile leak and peritonitis. The patient is acutely ill. He had an NG tube placement which did help his nausea and vomiting. The patient does have significant abdominal pain. No high-grade fever or chills. Denied any diarrhea. The patient did pass some flatus. No typical chest pain or palpitation. He has admission history physical and Surgical and Gastroenterology consults reviewed. Past medical history, medications, and ID consult also noted, as well as the Pulmonary consult. OBJECTIVE: Vital Signs: Blood pressure 148/83, pulse 56, respiration 12. Neck: Supple. No JVD. Lungs: Decreased air entry both the bases. Cardiovascular: S1 and S2 heard. Abdomen: Soft. Patient does have diffuse tenderness. No guarding or rigidity. The patient does have biliary drain and MAIDA drain, also Steven catheter and NG tube. Extremities: No cyanosis, clubbing. No acute DVT. Central Nervous System: Alert, awake, answering questions fairly well. LABORATORY DATA: Done today: WBC count 13.23, hemoglobin 12.9, hematocrit 37.9, platelet count 229,000. Electrolytes: Potassium 3.4, sodium 135. The rest was fairly benign. CONSIDERATION: Patient's medical problems include: 1. Cholecystectomy with bile leak. 2. Postoperative atelectasis and pneumonia. 3. History of coronary artery disease and transient ischemic attack. 4. Mild hypokalemia. 5. Mild ileus. 6. Current medication noted. We will continue current treatment and close observation. ID specialist, demonstrator sewing techniques following patient with us; so is the surgeon. cc: MD Shravan Laird Jr, MD
[2019-05-04] MEDS ORDERED: POTASSIUM PHOSPHATE 15 MMOL in NS 250 ML IV ONE (08:30)
[2019-05-04] MEDS: MONOPRIL PO SCH ×2 (09:32→20:26)
[2019-05-04] MEDS: MYCOSTATIN SUSP PO SCH ×4 (09:32→20:25)
[2019-05-04] MEDS: NORVASC PO SCH (09:32)
[2019-05-04] MEDS: NORCO-10 PO PRN ×3 (09:54→20:27)
[2019-05-04] MEDS: ASPIRIN EC PO SCH (09:55)
[2019-05-04] MEDS: LASIX IV SCH ×2 (10:00→18:14)
[2019-05-04] MEDS: SODIUM CHLORIDE 0.9% INJ SCH (11:15)
[2019-05-04] MEDS: PROTONIX IV SCH (11:15)
[2019-05-04] MEDS: LIPOSYN 20% 500 ML IV SCH (11:17)
[2019-05-04] MEDS: FLOMAX PO SCH (11:19)
--- NOTE | 2019-05-04 12:57 | PULMONOLOGY PROGRESS NOTE ---
DATE: 05/04/2019 SUBJECTIVE: The patient is awake, alert, and conversant. He reports some abdominal pain. Otherwise, he is without specific complaints. OBJECTIVE: Vital Signs: Maximum temperature in the last 24 hours 99.7 degrees, blood pressure 150/86, heart rate 53, respiratory rate 16, oxygen saturation 98%. HEENT: Pupils are equal and reactive. Oropharynx appears clear. Neck is supple. Chest reveals shallow inspiration bilaterally. Cardiac: S1, S2 with regular rhythm. Abdomen reveals mild increase in tympany. Extremities reveal trace edema. DIAGNOSTIC STUDIES: Pulmonary angiogram yesterday revealed right greater than left pleural effusions, bibasilar atelectasis, but no evidence of pulmonary emboli. Sodium 135, potassium 3.4, chloride 98, bicarbonate 31, BUN 10, creatinine 1.1, phosphorus 1.2. Magnesium 2.2. Pre-albumin 8.0. White blood count 13.23, hemoglobin 12.9, platelet count 229,000. IMPRESSION: A 64-year-old with: 1. Acute hypoxemic respiratory failure. 2. Pleural effusions. 3. Bibasilar atelectasis. 4. Acute cholecystitis status post laparoscopic cholecystectomy. 5. Bile leak status post stent placement. 6. Protein-calorie malnutrition. RECOMMENDATION: 1. Replace electrolytes. 2. Continue oxygen for hypoxemic respiratory failure. 3. Two doses of Lasix today due to volume overload and pleural effusions. 4. Continue current antibiotic regimen. cc: MD Shravan Gtz Jr, MD
[2019-05-04] MEDS: POTASSIUM CHLORIDE 20 MEQ/SWI 20 MEQ/100 ML IVPB IV SCH ×2 (12:59→14:48)
--- NOTE | 2019-05-04 14:15 | INFECTIOUS DISEASE PROGRESS NO ---
DATE: 05/04/2019 PRESENT ILLNESS: The patient has bile peritonitis and oral candidiasis. MEDICATIONS: Patient is on Zyvox and Zosyn for 4 days and micafungin for 1 day. The patient also is getting nystatin swish and swallow. PHYSICAL EXAMINATION: Vital Signs: Temperature is 97.6 degrees, pulse 55, respirations 18, blood pressure 146/73. General: This is an ill-appearing middle-aged male. He continues to have pain from his abdomen. Head/eyes/ears/nose/throat: He can hear my spoken words and see near objects. His white coating of his tongue has cleared. Neck: No pain with movement of his neck. Thorax: Patient has a right-sided subclavian catheter in place. The site is not swollen or red. Cardiovascular: Heart rate is regular. Lungs: Clear to auscultation. Abdomen: Soft but tender. Two drains are present. Also there are the small incisions from the patient's laparoscopic procedure. Neurologic: Patient is awake, he can move his extremities. He talks in a coherent fashion. He does not have a tremor. LAB AND X-RAY: The patient's CBC today shows a white count of 13,230, hemoglobin 12.9 and platelet count of 229,000. The patient's creatinine is 1.1. GFR is greater than 60. The patient's liver function studies are normal. There is no new microbiologic studies. ASSESSMENT AND PLAN: The patient has been on antibiotic for bile peritonitis. Possibly the patient has a generalized fungal infection because he has been on broad-spectrum antibiotics. Since starting micafungin his white blood cell count is decreasing. COMORBIDITIES: The patient had a stroke. He also has bipolar disorder and recently he had a laparoscopic cholecystectomy. cc: MD Shravan Maurer Jr, MD MTDD
[2019-05-04] MEDS ORDERED: BLISTEX MEDICATED BERRY LIP BALM TOP PRN (16:14)
[2019-05-04] MEDS: MYCAMINE 100 MG in NS 100 ML IV SCH (16:29)
[2019-05-04] MEDS: CRESTOR PO SCH (20:26)
[2019-05-04] MEDS: FLEET ENEMA PR SCH (20:27)
[2019-05-04] MEDS: TRICOR PO SCH (20:27)
[2019-05-05] MEDS: ZYVOX 600 MG/D5W 600 MG/300 ML IVPB IV SCH ×2 (00:49→11:31)
[2019-05-05] MEDS: ZOSYN 4.5 GM in NS 100 ML IV SCH ×4 (04:03→23:00)
[2019-05-05] MEDS: D5 1/2 NS 1,000 ML IV SCH ×2 (04:03→17:50)
[2019-05-05] MEDS: LOVENOX SUBQ SCH (05:27)
[2019-05-05 06:43] LABS: BASO# 0.03 X1000 (0.0-0.2); BASO% 0.2 % (0.0-0.8); EOS# 0.32 X1000 (0.0-0.7); EOS% 2.3 % (0.0-10.0); HEMATOCRIT 43.2 % (42.0-52.0); HEMOGLOBIN 14.5 g/dL (14.0-18.0); LYMPH# 1.15 X1000 (1.2-3.4); LYMPH% 8.3 % (20.5-51.1); MCH 31.3 PG (27-31); MCHC 33.6 g/dL (33-37); MCV 93.1 FL (81-99); MONO# 1.48 X1000 (0.11-0.59); MONO% 10.7 % (1.7-9.3); MPV 11.3 FL (7.4-10.4); NEUT# 10.86 X1000 (1.4-6.5); NEUT% 78.5 % (42.2-75.2); PLT 244 X1000 (130-400); RBC 4.64 XMIL (4.7-6.1); RDW 12.9 % (11.5-14.5); WBC 13.84 X1000 (4.8-10.8)
[2019-05-05 07:06] LABS: ALB/GLOB RATIO 0.8; ALBUMIN 3.1 g/dL (3.5-5.0); CALCIUM 8.9 mg/dL (8.8-10.2); CREATININE 1.3 mg/dL (0.7-1.2); MAGNESIUM 2.2 mg/dL (1.5-2.7); PHOSPHORUS 1.8 mg/dL (2.7-4.5); POTASSIUM 3.4 mmol/L (3.5-5.1); TOTAL BILIRUBIN 0.91 mg/dL (0.20-1.00); TOTAL PROTEIN 7.1 g/dL (6.3-8.3)
--- NOTE | 2019-05-05 07:20 | Diag Imaging Result Doc PS360 ---
EXAM: CHEST-PORTABLE 05/05/2019 HISTORY: abnormal exam TECHNIQUE: AP portable at 0539 COMMENT: There is an NG tube with its tip in the stomach. There is a right subclavian central venous catheter with its tip in the right atrium. The inspiration is suboptimal. There is hazy pulmonary edema. IMPRESSION: Pulmonary edema. Electronically signed by Shravan Regan 05/05/2019 7:17 AM
--- NOTE | 2019-05-05 07:30 | Diag Imaging Result Doc PS360 ---
EXAM: KUB ABDOMEN 05/05/2019 HISTORY: distention TECHNIQUE: Portable KUB at 0541 COMMENT: There is gas throughout the colon and the small bowel. Some stool is noted in the rectum. There is a drain over the left lower quadrant. Compared to 05/03/2019 there has been no appreciable change. The NG tube tip is seen in the area of the stomach. IMPRESSION: Ileus. Electronically signed by Shravan Regan 05/05/2019 7:27 AM
[2019-05-05] MEDS ORDERED: POTASSIUM CHLORIDE 40 MEQ/SWI 40 MEQ/100 ML IVPB IV ONE (09:03)
[2019-05-05] MEDS ORDERED: LASIX IV ONE (09:03)
--- NOTE | 2019-05-05 09:24 | PROGRESS NOTE ---
DATE: 05/05/2019 SUBJECTIVE: The patient looks very tired, but says he is feeling a little bit better. He has an NG tube down. OBJECTIVE: Vital Signs: Blood pressure is 141/86, respirations 18, pulse 56, temperature 97.7 degrees Fahrenheit. HEENT: He is normocephalic. EOMS intact. PERRLA. Throat clear. Lungs: Sound clear to auscultation. Chest x-ray shows some pulmonary edema. He was given 80 of Lasix yesterday because of his pleural effusions, but still has this pulmonary edema. Heart: Bradycardic without murmurs, gallops, or friction rubs. Abdomen: Somewhat distended, but with active bowel sounds. He is postop cholecystectomy and drainage tube placement. Neurological: Exam intact grossly. ASSESSMENT: 1. Acute on chronic cholecystitis. 2. Cholelithiasis. 3. Chest pain. Cardiac workup negative. 4. Bile leak. 5. Status post endoscopic retrograde cholangiopancreatography with stent placement. 6. Bipolar illness. 7. Pulmonary edema. 8. Hypoxic respiratory failure. 9. Hypokalemia with a potassium of 3.4. 10. Leukocytosis with a white count of a little over 13,000. 11. Nutritional problems. PLAN: We will supplement his potassium and give him some more Lasix. I do believe his breathing is better. Continue with the care. I appreciate all the help from all the specialists. cc: Shravan Urbina Jr, MD
[2019-05-05] MEDS: CALCIUM CHLORIDE IV SCH ×10 (10:09)
[2019-05-05] MEDS: MAGNESIUM SULFATE IV SCH ×10 (10:09)
[2019-05-05] MEDS: TPN ELECTROLYTES IV SCH ×10 (10:09)
[2019-05-05] MEDS: [UNRECOGNIZED DRUG - OTHER] IV SCH ×10 (10:09)
[2019-05-05] MEDS: LIPOSYN 20% 500 ML IV SCH (10:11)
[2019-05-05] MEDS: SODIUM CHLORIDE 0.9% INJ SCH (10:20)
[2019-05-05] MEDS: NORVASC PO SCH (10:20)
[2019-05-05] MEDS: FLOMAX PO SCH (10:20)
[2019-05-05] MEDS: PROTONIX IV SCH (10:20)
[2019-05-05] MEDS: MYCOSTATIN SUSP PO SCH ×4 (10:20→20:11)
[2019-05-05] MEDS: MONOPRIL PO SCH ×2 (10:20→20:11)
[2019-05-05] MEDS: ASPIRIN EC PO SCH (10:21)
--- NOTE | 2019-05-05 12:39 | INFECTIOUS DISEASE PROGRESS NO ---
DATE: 05/05/2019 PRESENT ILLNESS: The patient has bile peritonitis and oral candidiasis. Despite being on many antimicrobial agents, the patient continues to have leukocytosis. MEDICATIONS: The patient has been on Zyvox and Zosyn for 5 days and micafungin for 2 days. The patient also has ordered for him nystatin swish and swallow. PHYSICAL EXAMINATION: Vital Signs: Temperature is 97.7 degrees, pulse 56, respirations 18, blood pressure 141/86. General: This is an ill-appearing, middle-aged male. He is having abdominal pain, but he said it might be getting a little bit better. Head/eyes/ears/nose/throat: He can hear my spoken words and see near objects. I did not see any white patches in his mouth. Neck: He does not have any pain when he moved his neck. Thorax: The patient has a right-sided subclavian catheter in place. The site is not swollen or erythematous. Lungs: Clear to auscultation. Cardiovascular: Heart rate is regular. Abdomen: Soft, but tender. There are [address] Neurologic: The patient is awake. He can move his extremities. He does not have a tremor. He talks in a coherent fashion. LAB AND X-RAY: Chest x-ray shows pulmonary edema. CBC shows a white count of 13,840, hemoglobin 14.5, and platelet count 244,000. Creatinine is 1.3, GFR is 56 and alkaline phosphatase is 125. Thus far, all the cultures from the patient, including blood, urine and intra-abdominal cultures, are negative. ASSESSMENT AND PLAN: The patient has bile peritonitis and oral candidiasis and leukocytosis. For now I am going to continue the patient's current antimicrobial agents. COMORBIDITIES: The patient recently had laparoscopic cholecystectomy. He has also had a stroke and he has bipolar disorder. cc: MD Shravan Maurer Jr, MD
--- NOTE | 2019-05-05 14:00 | GASTROENTEROLOGY PROGRESS NOTE ---
DATE: 05/05/2019 SUBJECTIVE: Patient is sitting in the bed with head of bed up. He is complaining of some abdominal pain. He has an NG tube in place. He has bilateral abdominal drains in place. OBJECTIVE: Vital Signs: Temperature 97.7 degrees, pulse 55, respirations 15, blood pressure 147/74. General: Patient is awake and alert. Abdomen: With some distention, postop cholecystectomy with bile leak status post ERCP and stent placement. He has bilateral drains in place draining yellowish color fluid. LABORATORY DATA: Hematology: WBC 13.84, hemoglobin 14.5, hematocrit 43.2, MCV 93.1, platelets 244,000. Chemistry: Sodium 139, potassium 3.4, chloride 91, CO2 35, BUN 12, creatinine 1.3, glucose 190. Total bilirubin 0.91, AST 23, ALT 26, alkaline phosphatase 125. Amylase 91. ASSESSMENT: 1. Status post cholecystectomy with bile leak. 2. Status post ERCP with stent placement. 3. Leukocytosis has improved some over the last 2 days. PLAN: We will continue to follow. His liver function tests have returned to normal except for mildly elevated alkaline phosphatase. We will continue to follow and further plans will be made according to his progress. I have discussed this case with Dr. Abernathy. Dictated by KULWINDER Durant for Virgilio Abernathy MD cc: KULWINDER Orourke MD Roger H. Moss Jr, MD
[2019-05-05] MEDS: MYCAMINE 100 MG in NS 100 ML IV SCH (17:49)
[2019-05-05] MEDS: CRESTOR PO SCH (20:11)
[2019-05-05] MEDS: TRICOR PO SCH (20:11)
[2019-05-05] MEDS: FLEET ENEMA PR SCH (20:12)
[2019-05-05] MEDS: NORCO-10 PO PRN (20:22)
[2019-05-06] MEDS: ZYVOX 600 MG/D5W 600 MG/300 ML IVPB IV SCH ×3 (00:45→23:31)
[2019-05-06 04:47] LABS: ALLEN TEST YES; BLOOD TYPE ARTERIAL; HCO3-(ACT) 31.9 mmoll (20.0-26.0); METHB 1.2 % (0.0-1.5); O2(CT) 21.7 mL/dL (15.0-23.0); O2HB 96.8 % (95.0-99.0); PCO2(98.6) 33 mmHg (35-45); PO2(98.6) 180 mmHg (60-100); SAMPLE BLOOD; SAO2 98.7 % (95.0-100.0); THB 15.7 g/dL (11.5-17.4)
[2019-05-06 04:49] LABS: MODALITY CANNULA; pH(98.6) 7.58 (7.35-7.45)
[2019-05-06] MEDS: TPN ELECTROLYTES IV SCH ×10 (05:05)
[2019-05-06] MEDS: CALCIUM CHLORIDE IV SCH ×10 (05:05)
[2019-05-06] MEDS: [UNRECOGNIZED DRUG - OTHER] IV SCH ×10 (05:05)
[2019-05-06] MEDS: MAGNESIUM SULFATE IV SCH ×10 (05:05)
[2019-05-06] MEDS: ZOSYN 4.5 GM in NS 100 ML IV SCH ×4 (05:05→23:31)
[2019-05-06] MEDS: LOVENOX SUBQ SCH (05:06)
[2019-05-06 05:51] LABS: CALCIUM 8.5 mg/dL (8.8-10.2); CREATININE 1.3 mg/dL (0.7-1.2); MAGNESIUM 2.2 mg/dL (1.5-2.7); PHOSPHORUS 1.8 mg/dL (2.7-4.5); POTASSIUM 3.4 mmol/L (3.5-5.1)
--- NOTE | 2019-05-06 06:48 | Diag Imaging Result Doc PS360 ---
CHEST-PORTABLE - 05/06/2019 INDICATION: pulm edema COMPARISON: 05/05/2019 FINDINGS: Stable right central line in good position. The nasogastric tube has been removed. Stable low lung volumes with substantial right hemidiaphragm elevation. There has been decrease in the infiltrate at both lower lobes. Heart size and pulmonary vascularity is grossly normal. IMPRESSION: Improved aeration of both lower lobes. Nasogastric tube has been removed. Electronically signed by Maximiliano Bauman 05/06/2019 6:45 AM
--- NOTE | 2019-05-06 09:03 | PROGRESS NOTE ---
DATE: 05/06/2019 SUBJECTIVE: The patient says he is feeling a little bit better. He still has some pain. It is about a 7/10. The pain medicine does help. OBJECTIVE: Blood pressure 164/81, respirations 14, pulse 54, and temperature 97.6 degrees Fahrenheit.HEENT: Normocephalic. EOMs intact. PERRLA. Throat clear. Lungs: Sound clear to auscultation and percussion without rhonchi, rales, or wheezes. Chest x-ray is now clear. Heart: Regular rate and rhythm without murmurs, gallops, or friction rubs. Abdomen: Soft. Active bowel sounds, but tender from the pain. He has had a bowel movement he tells me. He has been passing gas. His ileus seems to have resolved. Neurological: Intact grossly. ASSESSMENT: 1. Chest pain. 2. Cardiac workup negative. 3. Cholecystitis. 4. Status post cholecystectomy. 5. Cholelithiasis. 6. Hypoxemic respiratory distress improving. 7. Bipolar illness. 8. Hypertension. 9. Status post cerebrovascular accident. 10. Bile leak with recurring peritonitis. 11. Slightly low potassium at 3.4. 12. Nutritional problems. PLAN: We will continue care. I think he could probably be taken care of outside of the unit on the floor. cc: Shravan Urbina Jr, MD
[2019-05-06] MEDS: NORVASC PO SCH (09:50)
[2019-05-06] MEDS: MONOPRIL PO SCH ×2 (09:50→20:40)
[2019-05-06] MEDS: D5 1/2 NS 1,000 ML IV SCH ×2 (09:50→22:56)
[2019-05-06] MEDS: ASPIRIN EC PO SCH (09:50)
[2019-05-06] MEDS: MYCOSTATIN SUSP PO SCH ×4 (09:50→20:40)
[2019-05-06] MEDS: FLOMAX PO SCH (11:41)
[2019-05-06] MEDS: NORCO-10 PO PRN (11:41)
[2019-05-06] MEDS: LIPOSYN 20% 500 ML IV SCH (11:42)
[2019-05-06] MEDS: SODIUM CHLORIDE 0.9% INJ SCH (11:43)
[2019-05-06] MEDS: PROTONIX IV SCH (11:43)
--- NOTE | 2019-05-06 15:33 | INFECTIOUS DISEASE PROGRESS NO ---
DATE: 05/06/2019 PRESENT ILLNESS: The patient has bile peritonitis and oral candidiasis. I noticed today and both drains coming from the patient's abdomen that the fluid that is coming out is a light yellow in color and does not look like bile anymore. MEDICATIONS: The patient has been on Zyvox and Zosyn for 6 days and micafungin for 3 days. The patient also is on nystatin swish and swallow. PHYSICAL EXAMINATION: Vital Signs: Temperature is 98.3 degrees, pulse 58, respirations 17, blood pressure 140/80. General: This is an ill-appearing, middle-aged male. He is having abdominal pain, but it seems better today. Head/eyes/ears/nose/throat: He can hear my spoken words and see near objects. There is no drainage coming from the nose or ears, and his NG tube is out. Neck: No meningismus. Thorax: The patient has a right-sided subclavian catheter in place. The site is not tender and it is not draining. Lungs: Clear to auscultation. Cardiovascular: Heart rate is regular. Abdomen: Soft and less tender today. There are [address] and as mentioned above, the drainage now is light yellow color and it does not appear to be bile like it did earlier. Neurologic: Patient is alert. He can move his extremities. There is no tremor. LAB AND X-RAY: Chest x-ray shows decrease in the patient's bibasilar infiltrates. The patient's creatinine is 1.3, GFR is 56. The patient's blood gases show a pH of 7.58, a PO2 of 180, and a pCO2 of 33. There is no CBC for today. ASSESSMENT AND PLAN: The patient's bile peritonitis is getting much better. Hopefully, on the CBC tomorrow the white blood cell count will be coming down. The patient does have oral candidiasis and I am going to continue the nystatin swish and swallow. I am also going to continue Zyvox, micafungin and Zosyn. COMORBIDITIES: The patient had a recent laparoscopic cholecystectomy. He also has had a stroke and he is bipolar. cc: MD Shravan Maurer Jr, MD MTDD
[2019-05-06] MEDS: MYCAMINE 100 MG in NS 100 ML IV SCH (17:19)
--- NOTE | 2019-05-06 18:45 | GASTROENTEROLOGY PROGRESS NOTE ---
DATE: 05/06/2019 SUBJECTIVE: Patient still complaining of some pain. I believe it is time for his pain medication. He has had his NG-tube removed. Per records, he had a soft bowel movement today. OBJECTIVE: Vital Signs: Temperature 98.3 degrees, pulse 58, respirations 17, blood pressure 140/80. General: Patient is awake and alert. Abdomen: With bilateral drains in place. Hypoactive bowel sounds present. LABORATORY: Hematology: WBC 13.84, hemoglobin 14.5, hematocrit 43.2, MCV 93.1, platelets 244,000. Chemistry 137, potassium 3.4, chloride 95, CO2 30, BUN 13, creatinine 1.3, glucose 262. ASSESSMENT AND PLAN: 1. Status post cholecystectomy with bile leak. 2. Status post endoscopic retrograde cholangiopancreatography with stent placement. 3. Leukocytosis. 4. Ileus. Patient had a bowel movement today. PLAN: Continue current medications. Continue p.r.n. medications for pain. His liver function tests are normal except for mildly elevated alkaline phosphatase. We will continue to follow. Further plans to be made according to his progress. I have discussed this case with Dr. Abernathy. Dictated by KULWINDER Durant for Virgilio Abernathy MD cc: KULWINDER Orourke MD Roger H. Moss Jr, MD
[2019-05-06] MEDS: TRICOR PO SCH (20:40)
[2019-05-06] MEDS: CRESTOR PO SCH (20:40)
[2019-05-06] MEDS: FLEET ENEMA PR SCH (20:40)
[2019-05-07] MEDS: ZOSYN 4.5 GM in NS 100 ML IV SCH ×4 (05:18→22:20)
[2019-05-07] MEDS: CALCIUM CHLORIDE IV SCH ×20 (05:18→22:17)
[2019-05-07] MEDS: LOVENOX SUBQ SCH (05:18)
[2019-05-07] MEDS: [UNRECOGNIZED DRUG - OTHER] IV SCH ×20 (05:18→22:17)
[2019-05-07] MEDS: MAGNESIUM SULFATE IV SCH ×20 (05:18→22:17)
[2019-05-07] MEDS: TPN ELECTROLYTES IV SCH ×20 (05:18→22:17)
[2019-05-07 05:48] LABS: BASO# 0.07 X1000 (0.0-0.2); BASO% 0.5 % (0.0-0.8); EOS# 0.53 X1000 (0.0-0.7); EOS% 3.5 % (0.0-10.0); HEMATOCRIT 40.2 % (42.0-52.0); HEMOGLOBIN 13.6 g/dL (14.0-18.0); IMM GRAN# 0.25 X1000 (0.0-0.04); IMM GRAN% 1.6 % (0.0-0.5); LYMPH# 1.59 X1000 (1.2-3.4); LYMPH% 10.4 % (20.5-51.1); MCH 30.6 PG (27-31); MCHC 33.8 g/dL (33-37); MCV 90.3 FL (81-99); MONO% 9.2 % (1.7-9.3); NEUT# 11.42 X1000 (1.4-6.5); NEUT% 74.8 % (42.2-75.2); PLT 294 X1000 (130-400); RBC 4.45 XMIL (4.7-6.1); RDW 13.1 % (11.5-14.5); WBC 15.26 X1000 (4.8-10.8)
[2019-05-07 06:01] LABS: AGAP 11; ALB/GLOB RATIO 0.8; ALBUMIN 2.8 g/dL (3.5-5.0); ALKALINE PHOSPHATASE 146 U/L (32-122); BUN 11 mg/dL (8-22); CHLORIDE 96 mmol/L (98-107); COSMO 281; CREATININE 1.2 mg/dL (0.7-1.2); ESTIMATED GFR > 60; GLUCOSE 235 mg/dL (70-104); GOT 38 U/L (10-34); GPT 49 U/L (10-44); POTASSIUM 3.5 mmol/L (3.5-5.1); SODIUM 137 mmol/L (136-145); TCO2 30 mmol/L (25-35); TOTAL BILIRUBIN 0.58 mg/dL (0.20-1.00); TOTAL PROTEIN 6.3 g/dL (6.3-8.3)
[2019-05-07 06:02] LABS: MAGNESIUM 2.3 mg/dL (1.5-2.7); PHOSPHORUS 2.1 mg/dL (2.7-4.5)
[2019-05-07] MEDS: MORPHINE IV PRN (07:20)
[2019-05-07] MEDS: ZOFRAN IV PRN (07:21)
--- NOTE | 2019-05-07 11:47 | PROGRESS NOTE ---
DATE: 05/07/2019 SUBJECTIVE: The patient is still her hurting some with his abdomen. He had have some more morphine. White count is up to 15,260. Potassium is better at 3.0. He has been started on some clear liquids. He has been moved from the unit to the floor now. OBJECTIVE: Blood pressure 135/71, respirations 20, pulse 55, and temperature 97.4 degrees Fahrenheit.HEENT: Normocephalic. EOMs intact. PERRLA. Throat clear. Lungs: Clear to auscultation and percussion without rhonchi, rales, or wheezes. Heart: Regular rate and rhythm without murmurs, gallops, or friction rubs. Abdomen: Soft. Active bowel sounds with some generalized tenderness. Neurological: Intact grossly. Potassium is a little better at 3.5. ASSESSMENT: 1. Chest pain. Cardiac workup negative. 2. Status post cholecystectomy. 3. Cholelithiasis. 4. Cholecystitis acute on chronic. 5. Hypoxic respiratory distress improving. 6. Bile leak. 7. Status post ERCP with stent placement. 8. Bipolar illness. 9. Hypertension. 10. Leukocytosis. 11. Peritonitis. 12. Hyperlipidemia. 13. Status post cerebrovascular accident. PLAN: Continue support. Patient is slowly improving. cc: Shravan Urbina Jr, MD
[2019-05-07] MEDS: SODIUM CHLORIDE 0.9% INJ SCH (11:49)
[2019-05-07] MEDS: PROTONIX IV SCH (11:49)
[2019-05-07] MEDS: FLOMAX PO SCH (11:49)
[2019-05-07] MEDS: MYCOSTATIN SUSP PO SCH ×4 (11:49→22:20)
[2019-05-07] MEDS: ASPIRIN EC PO SCH (11:49)
[2019-05-07] MEDS: LIPOSYN 20% 500 ML IV SCH (11:50)
[2019-05-07] MEDS: NORVASC PO SCH (11:50)
--- NOTE | 2019-05-07 11:52 | Diag Imaging Result Doc PS360 ---
EXAM: CT ABDOMEN/PELVIS W/O CONTRAST 05/07/2019 HISTORY: post op gallbladder surgery with bile leak TECHNIQUE: This exam was performed using automated exposure control, adjustment of mA or kV according to patient size, and/or use of iterative reconstruction technique. COMMENT: The current study is compared with the previous examination of 04/30/2019. There is apparent atelectasis in both lower lobes more so on the right than the left. This was also present on the previous examination but may be slightly improved in the left lower lobe. There are bilateral pleural fluid collections more so on the right than the left. There is fluid in the subphrenic space on the right. There is some gas in the biliary tract particularly in the left hepatic lobe which was not the case on the previous study. There is a fluid collection in the gallbladder fossa which was not present previously. This measures at least 6.3 cm in diameter and may represent a biloma. There is a stent in the common bile duct. There is some stranding in the fat surrounding the pancreas and the possibility of a mild degree of pancreatitis is suggested. There is an atrophic left kidney with distended renal collecting system. The right kidney is somewhat hypertrophic in appearance. There is an apparent tiny stone in the upper right collecting system and there is an apparent cortical scarring in the upper pole. There is a small amount of fluid in the rectovesical pouch. There is some edema in the presacral space. There is a Steven catheter in the bladder. There is a drain in the pelvis. The appendix is not distended. There are bilateral fat-containing inguinal hernias. There is no evidence of acute bony abnormality. IMPRESSION: 1. Improvement in left lower lobe atelectasis. Atelectasis versus pneumonia right lower lobe. Bilateral pleural effusions. 2. Fluid collection in the gallbladder fossa region consistent with a biloma. 3. Mild pancreatitis. Electronically signed by Shravan Regan 05/07/2019 11:50 AM
[2019-05-07] MEDS: MONOPRIL PO SCH ×2 (13:26→22:19)
[2019-05-07] MEDS: ZYVOX 600 MG/D5W 600 MG/300 ML IVPB IV SCH (13:30)
[2019-05-07] MEDS: D5 1/2 NS 1,000 ML IV SCH ×2 (13:33→22:17)
--- NOTE | 2019-05-07 13:56 | INFECTIOUS DISEASE PROGRESS NO ---
DATE: 05/07/2019 PRESENT ILLNESS: The patient has bile peritonitis and oral candidiasis. MEDICATIONS: This is the 7th day of treatment with Zyvox and Zosyn and the 4th day of treatment with micafungin. PHYSICAL EXAMINATION: Vital Signs: Temperature is 97.4 degrees, pulse 59, respirations 18, blood pressure 176/90. General: This is an ill-appearing middle-aged male. His abdominal pain continues. Head/eyes/ears/nose/throat: He can hear my spoken words and see near objects. I do not see any white patches on his tongue. Neck: No pain with movement. Thorax: The patient has a right-sided subclavian catheter in place. The site is not swollen or tender. Abdomen: Soft but it is tender. The patient has 2 drains in and also has the dressings on the incisions made for the patient to have laparoscopy done. Neurologic: The patient is awake. He can move his extremities. He does not have a tremor. LAB AND X-RAY: An x-ray done yesterday shows improved aeration of both lower lobes. [place] [address], hemoglobin 13.6, and platelet count 294,000. Creatinine is 1.2. GFR is greater than 60. Alkaline phosphatase is 146. ASSESSMENT AND PLAN: The patient has bile peritonitis. He also has leukocytosis. The exact reason, I am not sure and what is causing it. For now, I am going to leave the patient on his antibiotics. COMORBIDITIES: The patient recently had a laparoscopic cholecystectomy. Prior to that, he has had a stroke and he is bipolar. cc: MD Shravan Maurer Jr, MD
[2019-05-07] MEDS: MYCAMINE 100 MG in NS 100 ML IV SCH (16:44)
[2019-05-07] MEDS: TRICOR PO SCH (22:19)
[2019-05-07] MEDS: CRESTOR PO SCH (22:19)
[2019-05-07] MEDS: FLEET ENEMA PR SCH (22:20)
[2019-05-08] MEDS: D5 1/2 NS 1,000 ML IV SCH ×2 (00:02→13:59)
[2019-05-08] MEDS: ZYVOX 600 MG/D5W 600 MG/300 ML IVPB IV SCH (02:52)
[2019-05-08 06:06] LABS: BASO# 0.06 X1000 (0.0-0.2); BASO% 0.4 % (0.0-0.8); EOS# 0.48 X1000 (0.0-0.7); HEMOGLOBIN 13.2 g/dL (14.0-18.0); IMM GRAN# 0.49 X1000 (0.0-0.04); LYMPH# 1.92 X1000 (1.2-3.4); LYMPH% 11.9 % (20.5-51.1); MCH 30.7 PG (27-31); MCHC 33.8 g/dL (33-37); MCV 90.7 FL (81-99); MONO# 1.09 X1000 (0.11-0.59); MONO% 6.7 % (1.7-9.3); MPV 10.8 FL (7.4-10.4); NEUT# 12.14 X1000 (1.4-6.5); PLT 338 X1000 (130-400); RDW 13.3 % (11.5-14.5); WBC 16.18 X1000 (4.8-10.8)
[2019-05-08] MEDS: ZOSYN 4.5 GM in NS 100 ML IV SCH (06:25)
[2019-05-08] MEDS: LOVENOX SUBQ SCH (06:25)
[2019-05-08 06:43] LABS: AGAP 10; BUN 12 mg/dL (8-22); CALCIUM 8.7 mg/dL (8.8-10.2); CHLORIDE 99 mmol/L (98-107); COSMO 280; CREATININE 1.1 mg/dL (0.7-1.2); ESTIMATED GFR > 60; GLUCOSE 289 mg/dL (70-104); MAGNESIUM 2.2 mg/dL (1.5-2.7); PHOSPHORUS 1.9 mg/dL (2.7-4.5); POTASSIUM 3.7 mmol/L (3.5-5.1); SODIUM 135 mmol/L (136-145); TCO2 26 mmol/L (25-35)
--- NOTE | 2019-05-08 07:24 | Diag Imaging Result Doc PS360 ---
EXAM: CHEST-1 VIEW INDICATION: SOB TECHNIQUE: One view COMPARISON: 05/06/2019 FINDINGS: The right central line is in stable position. There is stable elevation of the right hemidiaphragm. Mild opacities at the lung bases are essentially stable. There is probably a small right effusion that is unchanged. No new consolidation is identified. Cardiac silhouette is stable. IMPRESSION: Stable chest. Electronically signed by Francis Cook 05/08/2019 7:22 AM
[2019-05-08 09:15] LABS: AMYLASE 107 U/L (20-200); LIPASE 231 U/L (13-60)
[2019-05-08] MEDS: NORVASC PO SCH (10:00)
[2019-05-08] MEDS: ASPIRIN EC PO SCH (10:00)
[2019-05-08] MEDS: MONOPRIL PO SCH (10:00)
[2019-05-08] MEDS: MYCOSTATIN SUSP PO SCH ×3 (10:00→18:08)
[2019-05-08] MEDS: NORCO-10 PO PRN (11:37)
--- NOTE | 2019-05-08 11:38 | PROGRESS NOTE ---
DATE: 05/08/2019 SUBJECTIVE: The patient says he is still hurting in his abdomen. CT scan yesterday did show mild pancreatitis, pleural effusions and a biloma the gallbladder bed. OBJECTIVE: Vital Signs: Blood pressure 175/87, respirations 18, pulse 66, temperature 97.9 degrees Fahrenheit. HEENT: Normocephalic. EOMs intact. PERRLA. Throat clear. Lungs: Sound fairly clear to auscultation. Heart: Regular rate and rhythm without murmurs, gallops, or friction rubs. Abdomen: Soft, but tender specially over the pancreatic area in the right upper quadrant. Neurological: Intact grossly. LABORATORY: Shows a white count going up to 16,180, hemoglobin 13.2, hematocrit 39.0. Sodium 135, potassium 3.7, BUN 12, creatinine 1.1. Blood sugar 262, phosphorus 1.9. Calcium 8.7, liver enzymes were still slightly elevated yesterday. Albumin was a little low yesterday at 2.8. Total protein was good at 6.3. Chest x-ray shows stable chest. Mild opacities at the lung bases. Unchanged. ASSESSMENT: 1. Chest pain. Cardiac workup negative. 2. Status post cholecystectomy. 3. Cholelithiasis. 4. Cholecystitis acute on chronic. 5. Hypoxic respiratory distress improving. 6. Bile leak. 7. Status post ERCP with stent placement. 8. Bipolar illness. 9. Hypertension. 10. Leukocytosis. 11. Peritonitis. 12. Hyperlipidemia. 13. Status post cerebrovascular accident. 14. Biloma. 15. Questionable pneumonia. PLAN: Continue current treatment. I appreciate help from all the specialists. cc: Shravan Urbina Jr, MD
[2019-05-08] MEDS: FLOMAX PO SCH (11:41)
[2019-05-08] MEDS: PROTONIX IV SCH (11:42)
[2019-05-08] MEDS: LIPOSYN 20% 500 ML IV SCH (11:42)
[2019-05-08] MEDS: SODIUM CHLORIDE 0.9% INJ SCH (11:42)
--- NOTE | 2019-05-08 12:39 | INFECTIOUS DISEASE PROGRESS NO ---
DATE: 05/08/2019 PRESENT ILLNESS: Mr. Dorsey is being treated status post laparoscopic cholecystectomy for a bile leak with peritonitis. There is also an oral candidiasis, and the possibility of right lower lobe pneumonia, as seen on CT scan. MEDICATIONS: Today is day 8 of Zyvox 600 mg IV every 12 hours and Zosyn 4.5 g IV every 6 hours. He is also on day 5 of micafungin 100 mg IV every 24 hours and nystatin swish and swallow for the oral candidiasis. PHYSICAL EXAMINATION: Vital Signs: Temp is 97.9, pulse rate 66, respiratory rate 18, and blood pressure 175/87. O2 saturation is 95% on room air. General: This is a chronically ill-appearing middle-aged male. He is lying in the bed currently in no acute distress. HEENT: Atraumatic, normocephalic. Oral mucous membranes are pink and moist. Conjunctivae are pink. Neck: Supple. Trachea is midline. Cardiovascular: Heart rate and rhythm are regular. Normal sinus rhythm on the monitor. Respiratory: Lung sounds are clear to auscultation bilaterally. Diminished in the bases. No work of breathing noted. Integumentary: There is a right subclavian triple lumen catheter in place. That site is without edema, erythema, or drainage. Abdomen: Soft, distended, and tender. Bowel sounds are active. There are [address] as well as laparoscopic dressings. Neurological: He is awake, alert, and oriented and just got back from ambulating to the restroom. LABORATORY AND X-RAY: Today his white count is 16.18, hemoglobin 13.2, and platelet count 338,000. Creatinine is 1.1. Estimated GFR is greater than 60. Amylase is 107 and lipase 231. Chest x-ray done today shows mild stable opacities to the lung bases with no new consolidation. ASSESSMENT AND PLAN: Mr. Dorsey has bile peritonitis with persistent leukocytosis. He is receiving Zyvox, Zosyn, and micafungin, with no real improvement. We will go ahead and discontinue these and start Meropenem 2gm IV every 8 hours. We will also continue the nystatin swish and swallow for his oral candidiasis. There is the possibility of pneumonia, so we will collect a procalcitonin in the morning. These plans have been discussed with and recommended by Dr. Curry. COMORBIDITIES: for Mr. Dorsey include a history of stroke and bipolar disorder. Dictated by KULWINDER Shields for Kranthi Curry MD cc: MD Shravan Maurer Jr, MD MTDD
[2019-05-08] MEDS: MERREM 2 GM in NS 50 ML IV SCH ×2 (13:59→21:00)
[2019-05-08] MEDS ORDERED: LASIX IV ONE (17:07)
[2019-05-08] MEDS: MAGNESIUM SULFATE IV SCH ×10 (18:06)
[2019-05-08] MEDS: [UNRECOGNIZED DRUG - OTHER] IV SCH ×10 (18:06)
[2019-05-08] MEDS: CALCIUM CHLORIDE IV SCH ×10 (18:06)
[2019-05-08] MEDS: TPN ELECTROLYTES IV SCH ×10 (18:06)
--- NOTE | 2019-05-08 20:35 | GASTROENTEROLOGY PROGRESS NOTE ---
DATE: 05/08/2019 SUBJECTIVE: The patient has been moved out of the intensive care unit onto a floor room. He is still complaining of some pain. CT scan done on 05/07/2019, showed improvement in left lower lobe atelectasis, fluid collection in the gallbladder fossa region consistent with a biloma and mild pancreatitis. His lipase is slightly elevated. Amylase 107, lipase 231. OBJECTIVE: Vital Signs: Temperature 97.8 degrees, pulse 65, respirations 20, blood pressure 178/84. General: Patient is awake and alert. His NG tube was removed several days ago. He is off of oxygen. Abdomen: Tender. Bilateral drains in place and intact. LABORATORY: Hematology: WBC 16.18, hemoglobin 13.2, hematocrit 39.0, platelet 338,000. Chemistry: Sodium 135, potassium 3.7, chloride 99, CO2 of 26, BUN 12, creatinine 1.1, glucose 289. Total bilirubin 0.58, AST 30, ALT 49, alkaline phosphatase 146, amylase 107, lipase 231. ASSESSMENT AND PLAN: 1. Status post cholecystectomy with bile leak. 2. Status post endoscopic retrograde cholangiopancreatography with stent placement. 3. Mild pancreatitis. Continue symptomatic treatment. 4. Peritonitis. Continue antibiotics. We will continue to follow, continue symptomatic treatment and supportive care. Further plans to be made according to his progress. I have discussed this case with Dr. Abernathy. Dictated by KULWINDER Durant for Virgilio Abernathy MD cc: KULWINDER Orourke MD Roger H. Moss Jr, MD
--- NOTE | 2019-05-08 23:57 | PULMONOLOGY PROGRESS NOTE ---
DATE: 05/08/2019 SUBJECTIVE: The patient is awake and alert. He has poor appetite. He continues to have some abdominal pain. OBJECTIVE: Vital Signs: The patient is afebrile. Blood pressure is 179/88, heart rate 68, respiratory rate 18, oxygen saturation is 98% on room air. HEENT: Pupils are equal and reactive. Oropharynx is clear.Neck: Supple. Chest: Reveals diminished breath sounds at right base. Cardiac: Regular rate. Normal S1, normal S2. Abdomen: Mildly distended in right lower quadrant. Extremities: Without edema. LABORATORY DATA: Sodium 135, potassium 3.7, chloride 99, bicarbonate 26, BUN 12, creatinine 1.1. White blood count is 16.2, hemoglobin 13.2, platelet count 338,000. Chest x-ray reveals effusion on the right with small basilar infiltrates. IMPRESSION: The patient is a 64-year-old with: 1. Hypoxemic respiratory failure, this has resolved. 2. Bibasilar atelectasis. 3. Pleural effusions. 4. Bile leak. 5. Mild pancreatitis. 6. Protein calorie malnutrition. RECOMMENDATIONS: 1. Continue to replace electrolytes. 2. Continue bronchial hygiene. 3. Single dose of Lasix today. 4. Continue antibiotic management per Infectious Disease. cc: MD Shravan Gtz Jr, MD
[2019-05-09] MEDS: MERREM 2 GM in NS 50 ML IV SCH (05:59)
[2019-05-09] MEDS: LOVENOX SUBQ SCH (05:59)
[2019-05-09] MEDS: MYCOSTATIN SUSP PO SCH ×6 (05:59→22:38)
[2019-05-09] MEDS: TRICOR PO SCH ×2 (06:00→22:38)
[2019-05-09] MEDS: MONOPRIL PO SCH ×3 (06:00→22:38)
[2019-05-09] MEDS: D5 1/2 NS 1,000 ML IV SCH (06:00)
[2019-05-09] MEDS: FLEET ENEMA PR SCH ×2 (06:01→22:37)
[2019-05-09] MEDS: CRESTOR PO SCH ×2 (06:01→22:38)
[2019-05-09 07:21] LABS: BASO# 0.07 X1000 (0.0-0.2); BASO% 0.3 % (0.0-0.8); EOS# 0.27 X1000 (0.0-0.7); EOS% 1.3 % (0.0-10.0); HEMATOCRIT 41.3 % (42.0-52.0); HEMOGLOBIN 13.9 g/dL (14.0-18.0); IMM GRAN# 0.43 X1000 (0.0-0.04); IMM GRAN% 2.1 % (0.0-0.5); LYMPH% 8.9 % (20.5-51.1); MCH 30.3 PG (27-31); MCHC 33.7 g/dL (33-37); MCV 90.2 FL (81-99); MONO# 1.39 X1000 (0.11-0.59); MONO% 6.9 % (1.7-9.3); MPV 10.7 FL (7.4-10.4); NEUT# 16.16 X1000 (1.4-6.5); NEUT% 80.5 % (42.2-75.2); PLT 414 X1000 (130-400); RBC 4.58 XMIL (4.7-6.1); RDW 13.6 % (11.5-14.5); WBC 20.12 X1000 (4.8-10.8)
[2019-05-09 07:31] LABS: CALCIUM 8.8 mg/dL (8.8-10.2); CREATININE 1.3 mg/dL (0.7-1.2); MAGNESIUM 2.3 mg/dL (1.5-2.7); PHOSPHORUS 2.7 mg/dL (2.7-4.5); POTASSIUM 3.8 mmol/L (3.5-5.1); PREALBUMIN 19.3 mg/dL (20-40)
[2019-05-09 07:45] LABS: EOS 1 % (1-10); LYMPHS 5 % (21-51); MONO 10 % (1-9); SEGS 84 % (42-75)
[2019-05-09] MEDS: NORVASC PO SCH (08:53)
[2019-05-09] MEDS: ASPIRIN EC PO SCH (08:53)
--- NOTE | 2019-05-09 11:13 | PROGRESS NOTE ---
DATE: 05/09/2019 SUBJECTIVE: The patient says that he still hurts a little bit in his abdomen but he does seem to have a little bit more energy. White count has gone up to 20,000. I have talked with Dr. Bonilla who is going to pull his central and culture that. He has had some pleural effusions. I am going to decrease his IV fluids a bit and see if that will not help. OBJECTIVE: Vital Signs: Blood pressure is 148/80, respirations 20, pulse 62, and temp 98.1 degrees Fahrenheit. HEENT: Normocephalic, atraumatic. Respiratory: Lungs clear to auscultation and percussion without rhonchi, rales, or wheezes. Cardiovascular: Heart has a regular rate and rhythm without murmurs, gallops, friction, or rubs. Gastrointestinal: The abdomen is still a little tender but soft. He has active bowel sound. He has had some bowel movements. Drains are still in. He has a small biloma in the gallbladder bed that Dr. Bonilla is investigating. Neurological: Exam is intact grossly. ASSESSMENT: 1. Chest pain. Cardiac workup was negative. 2. Acute cholecystitis. 3. Chronic cholecystitis. 4. Cholelithiasis. 5. Status post cholecystectomy. 6. Bile leak. 7. Status post endoscopic retrograde cholangiopancreatography with stent placement. 8. Bipolar illness. 9. Leukocytosis. PLAN: Continue treatment and make changes as above. cc: Shravan Urbina Jr, MD
[2019-05-09] MEDS: SODIUM CHLORIDE 0.9% INJ SCH (12:24)
[2019-05-09] MEDS: PROTONIX IV SCH (12:24)
[2019-05-09] MEDS: FLOMAX PO SCH (12:24)
[2019-05-09] MEDS: MERREM 2 GM in NS 100 ML IV SCH ×2 (13:58→22:37)
[2019-05-09] MEDS: D5 1/2 NS + KCL 20 MEQ 1,000 ML IV SCH (13:59)
--- NOTE | 2019-05-09 22:05 | PULMONOLOGY PROGRESS NOTE ---
DATE: 05/09/2019 SUBJECTIVE: The patient is awake and alert. He reports he has some colicky abdominal pain but is currently pain free. He is attempting some p.o. intake. He is without new complaints. OBJECTIVE: Vital Signs: The patient has been afebrile for the last 24 hours. Blood pressure 135/89, heart rate 61, respiratory rate 16, oxygen saturation 99% on 1.5 L per nasal cannula. HEENT: Pupils are equal and reactive. Oropharynx appears clear. Neck: Supple. Chest: Reveals decreased breath sounds, right base. Cardiac exam: S1-S2. Abdomen: Soft with mild tenderness in the right lower quadrant. Ostomy appears viable. Extremities: Without edema. LABORATORIES: White blood count 20,000, hemoglobin 13,900, platelet count 414,000. Sodium 141, potassium 3.8, chloride 100, bicarbonate 29, BUN 12, creatinine 1.3, glucose 240. Pre-albumin 19.3. IMPRESSION: A 64-year-old with: 1. Hypoxemic respiratory failure on low-flow nasal cannula. 2. Bibasilar atelectasis with right-sided pleural effusion. 3. Mild pancreatitis. 4. Protein calorie malnutrition. PLAN: 1. Diet to be advanced slowly as per General Surgery. 2. Continue bronchial hygiene. 3. Attempt to balance intake and output. 4. Antibiotics per Infectious Disease. 5. Follow up chest x-ray tomorrow morning. cc: MD Shravan Gtz Jr, MD
[2019-05-10] MEDS: MERREM 2 GM in NS 100 ML IV SCH ×3 (05:40→21:52)
[2019-05-10] MEDS: MONOPRIL PO SCH ×2 (08:36→21:52)
[2019-05-10] MEDS: ASPIRIN EC PO SCH (08:36)
[2019-05-10] MEDS: NORVASC PO SCH (08:36)
[2019-05-10 08:37] LABS: BASO# 0.07 X1000 (0.0-0.2); BASO% 0.3 % (0.0-0.8); EOS# 0.36 X1000 (0.0-0.7); EOS% 1.7 % (0.0-10.0); HEMOGLOBIN 13.9 g/dL (14.0-18.0); IMM GRAN# 0.33 X1000 (0.0-0.04); IMM GRAN% 1.6 % (0.0-0.5); LYMPH# 2.05 X1000 (1.2-3.4); LYMPH% 9.7 % (20.5-51.1); MCH 30.2 PG (27-31); MCHC 33.1 g/dL (33-37); MCV 91.1 FL (81-99); MONO# 1.31 X1000 (0.11-0.59); MONO% 6.2 % (1.7-9.3); MPV 10.4 FL (7.4-10.4); NEUT# 17.05 X1000 (1.4-6.5); NEUT% 80.5 % (42.2-75.2); PLT 478 X1000 (130-400); RBC 4.61 XMIL (4.7-6.1); RDW 13.9 % (11.5-14.5); WBC 21.17 X1000 (4.8-10.8)
--- NOTE | 2019-05-10 08:40 | Diag Imaging Result Doc PS360 ---
KUB ABDOMEN - 05/10/2019 INDICATION: distention COMPARISON: 05/05/2019 FINDINGS: There is a stable surgical drain in the left lower quadrant. There has been significant improvement in the extensive gas distended bowel loops. No obvious bowel obstruction or free air at this time. IMPRESSION: Significant improvement in the extensive gas distended bowel loops. Electronically signed by Maximiliano Bauman 05/10/2019 8:38 AM
--- NOTE | 2019-05-10 08:42 | Diag Imaging Result Doc PS360 ---
CHEST-PORTABLE - 05/10/2019 INDICATION: abnormal exam COMPARISON: 05/08/2019 FINDINGS: The right central line has been removed. Stable right hemidiaphragm elevation. Stable bibasilar atelectasis. Trace right basilar pleural effusion. No pneumothorax. Heart size is normal. IMPRESSION: Trace right basilar pneumothorax. Strandy atelectasis in the lung bases. Electronically signed by Maximiliano Bauman 05/10/2019 8:39 AM
[2019-05-10 09:00] LABS: BANDS 2 % (0-1); EOS 1 % (1-10); LYMPHS 9 % (21-51); MONO 5 % (1-9); NRBC 1 % (0-0); POLYCHROM 1+; SEGS 83 % (42-75)
[2019-05-10 09:01] LABS: ANISOCYTOSIS 1+; LARGE PLATELETS OCCASIONAL
[2019-05-10 09:03] LABS: CALCIUM 9.3 mg/dL (8.8-10.2); CREATININE 1.4 mg/dL (0.7-1.2); MAGNESIUM 2.3 mg/dL (1.5-2.7); PHOSPHORUS 2.9 mg/dL (2.7-4.5); POTASSIUM 4.5 mmol/L (3.5-5.1)
[2019-05-10] MEDS: MYCOSTATIN SUSP PO SCH ×4 (09:36→21:52)
--- NOTE | 2019-05-10 10:56 | PROGRESS NOTE ---
DATE: 05/10/2019 SUBJECTIVE: The patient says he is not hurting as much as he was previously. He still feels very tired. OBJECTIVE: Blood pressure is 140/73, respirations 16, pulse 66, temperature 97.8 degrees Fahrenheit. HEENT: Normocephalic. EOMs intact. PERRLA. Throat clear. Lungs: Clear to auscultation and percussion without rhonchi, rales, or wheezes. Heart: Regular rate and rhythm without murmurs, gallops, or friction rubs. Abdomen: Soft. Active bowel sounds. With just mild tenderness on palpation. He has been having good bowel movements. Neurological: Examination intact grossly. Laboratory: Shows white count is up a little bit further to 21,170, hemoglobin 13.9, hematocrit 42. Electrolytes essentially normal. Creatinine up a little bit to 1.4. We will get a urinalysis. Urine culture was already done. Blood cultures are pending. He is afebrile. ASSESSMENT: 1. Chest pain. Cardiac workup negative. 2. Status post cholecystectomy for acute cholecystitis and cholelithiasis. 3. Bile leak. 4. Status post endoscopic retrograde cholangiopancreatography with stent placement. 5. Leukocytosis. 6. Bipolar illness. 7. History of cerebrovascular accident. 8. Now chest x-ray shows very small or trace right basilar pneumothorax and strandy atelectasis in the lung bases. PLAN: We will continue to support with antibiotics. Await cultures. cc: Shravan Urbina Jr, MD
[2019-05-10] MEDS: FLOMAX PO SCH (11:20)
[2019-05-10] MEDS: PROTONIX IV SCH (11:20)
[2019-05-10] MEDS: SODIUM CHLORIDE 0.9% INJ SCH (11:20)
[2019-05-10 11:31] LABS: BILIRUBIN URINE NEGATIVE (NEGATIVE); BLOOD URINE MODERATE (NEGATIVE); COLOR YELLOW; GLUCOSE URINE NEGATIVE (NEGATIVE); KETONE URINE TRACE mg/dL (NEGATIVE); LEUKOCYTES URINE NEGATIVE (NEGATIVE); NITRITE URINE NEGATIVE (NEGATIVE); PROTEIN URINE 30 mg/dL (NEGATIVE); SP GRAVITY URINE 1.014; TURBIDITY URINE CLEAR (CLEAR); URINE SOURCE CLEAN CATCH; UROBILINOGEN URINE NORMAL (NORMAL)
[2019-05-10 11:32] LABS: UR EPITHELIAL CELLS <10 /HPF (<10); URINE BACTERIA NEGATIVE /HPF; URINE RBC TNTC /HPF (<10); URINE WBC <10 /HPF (<10)
[2019-05-10] MEDS: D5 1/2 NS + KCL 20 MEQ 1,000 ML IV SCH (14:38)
--- NOTE | 2019-05-10 17:21 | PULMONOLOGY PROGRESS NOTE ---
DATE: 05/10/2019 SUBJECTIVE: The patient is awake, alert, and conversant. He has been having some bowel movements. He reports his pain continues to decline. OBJECTIVE: Vital Signs: The patient has been afebrile for the last 24 hours. Blood pressure 149/94, heart rate 64, respiratory rate 16, oxygen saturation 99% on 2 L per nasal cannula. HEENT: Pupils are equal and reactive. Oropharynx is clear. Neck: Supple. Chest: Reveals slight decreased breath sounds right base. Cardiac exam: S1, S2. Abdomen: Softer with positive bowel sounds. Extremities: Without edema. LABORATORIES: Chest x-ray reveals small effusion with atelectasis at the right base. The radiologist incorrectly dictated that there is a trace right basilar pneumothorax. White blood count 21,000, hemoglobin 13.9, platelet count is 478,000. Sodium 140, potassium 4.5, chloride 102, bicarbonate 26, BUN 18, creatinine 1.4, glucose 149. IMPRESSIONS: A 64-year-old with: 1. Small right-sided pleural effusion. 2. Basilar atelectasis. 3. Mild hypoxemic respiratory failure which is stable. 4. Mild pancreatitis. 5. Protein calorie malnutrition. PLAN: 1. Continue bronchial hygiene. 2. Wean oxygen as tolerated. 3. Diet as per General Surgery. 4. Cautious follow-up of the abdomen. He continues to have a leukocytosis. cc: MD Shravan Gtz Jr, MD
[2019-05-10] MEDS: CRESTOR PO SCH (21:52)
[2019-05-10] MEDS: TRICOR PO SCH (21:52)
[2019-05-10] MEDS: FLEET ENEMA PR SCH (21:53)
[2019-05-11] MEDS: NORCO-10 PO PRN ×2 (01:34→19:18)
[2019-05-11] MEDS: MERREM 2 GM in NS 100 ML IV SCH ×3 (05:32→22:04)
--- NOTE | 2019-05-11 06:45 | Diag Imaging Result Doc PS360 ---
CHEST-PORTABLE - 05/11/2019 INDICATION: post op COMPARISON: 05/10/2019 FINDINGS: Stable right hemidiaphragm elevation. Stable right lower lobe strandy atelectasis. No new infiltrates. Heart size and pulmonary vascularity is grossly normal. IMPRESSION: No change from prior. Electronically signed by Maximiliano Bauman 05/11/2019 6:42 AM
[2019-05-11 07:05] LABS: BASO# 0.07 X1000 (0.0-0.2); BASO% 0.4 % (0.0-0.8); EOS# 0.45 X1000 (0.0-0.7); EOS% 2.5 % (0.0-10.0); HEMATOCRIT 39.9 % (42.0-52.0); HEMOGLOBIN 13.2 g/dL (14.0-18.0); IMM GRAN% 1.1 % (0.0-0.5); LYMPH# 2.24 X1000 (1.2-3.4); LYMPH% 12.5 % (20.5-51.1); MCH 30.1 PG (27-31); MCHC 33.1 g/dL (33-37); MCV 91.1 FL (81-99); MONO# 1.42 X1000 (0.11-0.59); MONO% 7.9 % (1.7-9.3); MPV 10.5 FL (7.4-10.4); NEUT# 13.53 X1000 (1.4-6.5); NEUT% 75.6 % (42.2-75.2); PLT 516 X1000 (130-400); RBC 4.38 XMIL (4.7-6.1); RDW 13.9 % (11.5-14.5); WBC 17.91 X1000 (4.8-10.8)
[2019-05-11 07:38] LABS: CALCIUM 8.3 mg/dL (8.8-10.2); CREATININE 1.4 mg/dL (0.7-1.2); POTASSIUM 4.8 mmol/L (3.5-5.1)
--- NOTE | 2019-05-11 09:12 | PROGRESS NOTE ---
DATE: 05/11/2019 SUBJECTIVE: The patient had a little bit more abdominal pain last evening, and was given some pain medication. He is having no diarrhea. OBJECTIVE: Vital Signs: Blood pressure 143/70, respirations 18, pulse 62, temp 97.6 degrees Fahrenheit. HEENT: He is normocephalic. PERRLA. Throat clear. Lungs: Sound fairly clear to auscultation and percussion without rhonchi, rales, or wheezes. Heart: Regular rate and rhythm without murmurs, gallops, or friction rubs. Abdomen: Soft. Active bowel sounds. Some tenderness diffusely. Neurologic: Intact grossly. LABORATORY DATA: White count is down from 21,170 to 17,910 since the central line has been removed, hemoglobin is 13.2, hematocrit 39.9. Electrolytes are stable. Creatinine is 1.4. Urinalysis did show blood, but negative for white blood cells. Clostridium difficile check was negative. Urine does have a little bit of yeast in it. Blood cultures were no growth. ASSESSMENT: 1. Chest pain. Cardiac workup negative. 2. Acute cholecystitis with cholelithiasis, now post cholecystectomy. 3. Bile leak. 4. Peritonitis. 5. Status post endoscopic retrograde cholangiopancreatography with stent placement. 6. Leukocytosis. 7. Bipolar illness. PLAN: Continue support. cc: Shravan Urbina Jr, MD
[2019-05-11 09:37] LABS: INR 1.15; PROTIME 14.8 Seconds (11.0-16.0)
[2019-05-11] MEDS: MYCOSTATIN SUSP PO SCH ×2 (13:17→14:46)
--- NOTE | 2019-05-11 14:37 | Diag Imaging Result Doc PS360 ---
EXAM: CT GUIDE ABD DRAINAGE W/CATH INDICATION: biloma subhepatic fluid collection TECHNIQUE: COMPARISON: 05/07/2019 FINDINGS: Risks, benefits, and alternatives were discussed with the patient and informed consent was obtained. The patient was placed in a supine position and was prepped and draped in sterile fashion. Local anesthesia was achieved with 1% lidocaine solution. Using CT guidance, a 10-Tamazight pigtail drainage catheter was inserted into the subhepatic biloma seen on the previous study. Approximately 10 mL of bilious fluid was aspirated and sent for laboratory analysis. The catheter was then secured with a dressing and was connected to an accordion drain. There were no known complications. IMPRESSION: Technically successful CT-guided biloma drainage and pigtail catheter placement. Electronically signed by Francis Cook 05/11/2019 2:35 PM
[2019-05-11] MEDS: MONOPRIL PO SCH ×2 (14:44→22:04)
[2019-05-11] MEDS: D5 1/2 NS + KCL 20 MEQ 1,000 ML IV SCH (14:44)
[2019-05-11] MEDS: ASPIRIN EC PO SCH (14:44)
[2019-05-11] MEDS: NORVASC PO SCH (14:44)
[2019-05-11] MEDS: SODIUM CHLORIDE 0.9% INJ SCH (14:45)
[2019-05-11] MEDS: PROTONIX IV SCH (14:45)
[2019-05-11] MEDS: FLOMAX PO SCH (14:45)
[2019-05-11] MEDS: MYCELEX TROCHE PO SCH ×3 (15:52→22:05)
--- NOTE | 2019-05-11 19:23 | GASTROENTEROLOGY PROGRESS NOTE ---
DATE: 05/11/2019 SUBJECTIVE: The patient is still reporting some abdominal pain. He has bilateral drains in place. I believe there are plans for him to have a CT-guided drainage of the biloma today. OBJECTIVE: Vital Signs: Temperature 97.8 degrees, pulse 64, respirations 16, blood pressure 145/80. General: Patient is awake and alert. Noted some mild dyspnea. Abdomen: Tender. Bilateral drains in place. DIAGNOSTIC RESULTS: LABORATORY: Hematology, WBC 17.91, hemoglobin 13.2, hematocrit 39.9, MCV 91.1, platelets 516,000. Coagulation ProTime 14.8, INR 1.15, PTT 38.0. Chemistry: Sodium 137, potassium 4.8, chloride 101, CO2 of 22, BUN 22, creatinine 1.4, glucose 126, calcium 8.3, phosphorus 2.9, magnesium 2.3. ASSESSMENT AND PLAN: 1. Acute cholecystitis with cholelithiasis status post cholecystectomy. 2. Bile leak status post cholecystectomy. 3. Status post ERCP with stent placement. 4. Peritonitis. 5. Biloma. PLAN: Patient has orders for CT-guided drainage of biloma today. We will continue to follow and be available as needed. He will need repeat ERCP with stent removal in 4 to 6 weeks. I have given patient our contact information to make a follow up appointment once discharged. Further plans to be made according to his progress. I have discussed this case with Dr. Abernathy. Dictated by KULWINDER Durant for Virgilio Abernathy MD cc: KULWINDER Orourke MD Roger H. Moss Jr, MD
--- NOTE | 2019-05-11 20:53 | INFECTIOUS DISEASE PROGRESS NO ---
DATE: 05/11/2019 PRESENT ILLNESS: Mr. Dorsey is status post laparoscopic cholecystectomy with a bile leak peritonitis. Subsequently, he had 2 Yury-Acharya drains inserted, and today there was a pigtail catheter with accordion drain placed to a subhepatic biloma. The patient also has an oral candidiasis. The patient has an elevated procalcitonin which indicates the likelihood of a respiratory tract infection. MEDICATIONS: Today is day 2 of treatment with meropenem 2 g IV every 8 hours. He has also been receiving nystatin swish and swallow 4 times a day. PHYSICAL EXAMINATION: Vital Signs: Temperature is 97.8 degrees, pulse rate 64, respiratory rate 16, blood pressure 145/80, and O2 saturation is 98% on room air. General: This is a chronically ill-appearing, middle-aged gentleman. He is lying in the bed, currently in no acute distress. HEENT: He is atraumatic, normocephalic. Oral mucous membranes are pink and moist. Conjunctivae are pink. Neck: Supple. Trachea is midline. Cardiovascular: Heart rate and rhythm are regular. Normal sinus rhythm on the monitor. Respiratory: Lung sounds are clear in the upper lobes, diminished in the bases bilaterally. No work of breathing is noted. Integumentary: He has abdominal christelle to laparoscopic sites, as well as 2 Yury-Acharya drains and a new subhepatic drain. The MAIDA drains have serous fluid in the bulbs, and the accordion drain has some bloody fluid. The right subclavian triple lumen has been removed and there is a dressing in place to the right chest. Abdomen: Soft, distended, and tender. Bowel sounds are audible. Neurologic: He is awake, alert, oriented, and able to move around in the bed with assistance. LABORATORY AND X-RAY: Today, his white count is 17.91, hemoglobin 13.2, platelet count 516,000. Creatinine is 1.4, GFR 51. Urinalysis done yesterday showed no urine bacteria and less than 10 WBCs. C difficile toxin and antigen check were both negative. A blood culture was drawn over the weekend and it was negative. Chest x-ray today shows no change from prior, with right lower lobe strandy atelectasis. ASSESSMENT AND PLAN: Mr. Dorsey is being treated for a bile leak with peritonitis, status post laparoscopic cholecystectomy. At this point, there are 3 drains, 2 Yury- Acharya drains and 1 new drain that has placed to a subphrenic biloma. We will go ahead and order specimen culture to be done of the drainage of subphrenic abscess. There is also a likelihood of respiratory tract infection with an elevated procalcitonin. We will continue the meropenem for both of these in light of his decreased white count noted today. He also has an oral candidiasis and has been refusing the nystatin due to taste. We will discontinue nystatin and try him on Mycelex Cali. For now, we will continue meropenem as ordered. These plans have been discussed with and recommended by Dr. Curry. COMORBIDITIES: for Mr. Dorsey include a history of stroke and bipolar disorder. Dictated by KULWINDER Shields for Kranthi Curry MD cc: MD Shravan Maurer Jr, MD MTDD
[2019-05-11] MEDS: FLEET ENEMA PR SCH (22:05)
[2019-05-11] MEDS: TRICOR PO SCH (22:05)
[2019-05-11] MEDS: CRESTOR PO SCH (22:05)
[2019-05-12] MEDS: MERREM 2 GM in NS 100 ML IV SCH ×3 (05:10→22:51)
[2019-05-12] MEDS: ASPIRIN EC PO SCH (08:27)
[2019-05-12] MEDS: NORCO-10 PO PRN ×3 (08:27→22:53)
[2019-05-12] MEDS: MYCELEX TROCHE PO SCH ×5 (08:27→22:53)
[2019-05-12] MEDS: MONOPRIL PO SCH ×2 (08:28→22:53)
[2019-05-12] MEDS: NORVASC PO SCH (08:28)
--- NOTE | 2019-05-12 09:34 | PROGRESS NOTE ---
DATE: 05/12/2019 SUBJECTIVE: The patient says he has been very sore where he had the new drain put in for the biloma but that his appetite is getting better and he is feeling better overall. OBJECTIVE: Vital Signs: Temperature is 97.8 degrees Fahrenheit. Pulse 65, respirations 16, blood pressure 113/79. HEENT: Normocephalic. PERRLA. Throat clear. Lungs: Clear to auscultation and percussion without rhonchi, rales, or wheezes. Heart: Regular rate and rhythm without murmurs, gallops, friction rubs. Abdomen: Is a little distended but there are active bowel sounds. He has some mild tenderness diffusely. Neurological: Exam intact grossly. ASSESSMENT: 1. Chest pain. Cardiac workup negative. 2. Status post cholecystectomy. 3. Acute cholecystitis and cholelithiasis. 4. Bile leak. 5. Respiratory distress improved. 6. Bipolar illness. 7. Status post cerebrovascular accident. 8. Hyperlipidemia. PLAN: Continue support. Lab work pending. cc: Shravan Urbina Jr, MD
[2019-05-12] MEDS: SODIUM CHLORIDE 0.9% INJ SCH ×2 (09:37→12:29)
[2019-05-12] MEDS: FLOMAX PO SCH ×2 (09:37→12:29)
[2019-05-12] MEDS: PROTONIX IV SCH ×2 (09:37→12:30)
--- NOTE | 2019-05-12 14:09 | GASTROENTEROLOGY PROGRESS NOTE ---
DATE: 05/12/2019 SUBJECTIVE: Patient complains of some abdominal pain since the new drain was placed. He had a CT- guided aspiration drainage yesterday with a pigtail catheter placed. He has some bloody drainage, a small amount, in the accordion bag. His other drain to the left quadrant was removed. OBJECTIVE: Vital Signs: Temperature 98 degrees pulse 67, respirations 16, blood pressure 113/74. General: Patient is awake and alert. He is complaining of some abdominal pain. LABORATORY: Hematology: WBC 17.91, hemoglobin 13.2, hematocrit 39.9, MCV 91.1. Chemistry: Sodium 137, potassium 4.8, chloride 101, CO2 of 22, BUN 22, creatinine 1.4. ASSESSMENT AND PLAN: 1. Status post cholecystectomy and bile leak. 2. Status post ERCP with stent placement. 3. Biloma with recent drain placed. Continue to monitor. Continue current medications. Patient is aware that he will need his stent removed within 4 to 6 weeks of the placement. We will follow with him as an outpatient. Further plans to be made according to his progress. I have discussed this case with Dr. Abernathy. Dictated by KULWINDER Durant for Virgilio Abernathy MD cc: KULWINDER Orourke MD Roger H. Moss Jr, MD MTDD
[2019-05-12] MEDS: TRICOR PO SCH (22:53)
[2019-05-12] MEDS: CRESTOR PO SCH (22:53)
[2019-05-12] MEDS: FLEET ENEMA PR SCH (22:54)
[2019-05-13] MEDS: MERREM 2 GM in NS 100 ML IV SCH ×3 (05:14→22:00)
[2019-05-13] MEDS: PROTONIX PO SCH ×2 (05:14→06:34)
[2019-05-13 06:58] LABS: BASO# 0.08 X1000 (0.0-0.2); BASO% 0.7 % (0.0-0.8); EOS# 0.64 X1000 (0.0-0.7); HEMATOCRIT 38.2 % (42.0-52.0); HEMOGLOBIN 12.7 g/dL (14.0-18.0); IMM GRAN# 0.07 X1000 (0.0-0.04); IMM GRAN% 0.7 % (0.0-0.5); LYMPH% 19.6 % (20.5-51.1); MCH 30.9 PG (27-31); MCHC 33.2 g/dL (33-37); MCV 92.9 FL (81-99); MONO# 0.92 X1000 (0.11-0.59); MONO% 8.6 % (1.7-9.3); MPV 10.7 FL (7.4-10.4); NEUT# 6.88 X1000 (1.4-6.5); NEUT% 64.4 % (42.2-75.2); PLT 512 X1000 (130-400); RBC 4.11 XMIL (4.7-6.1); RDW 13.7 % (11.5-14.5); WBC 10.69 X1000 (4.8-10.8)
[2019-05-13 07:28] LABS: AGAP 12; ALBUMIN 3.2 g/dL (3.5-5.0); ALKALINE PHOSPHATASE 111 U/L (32-122); BUN 24 mg/dL (8-22); CALCIUM 8.3 mg/dL (8.8-10.2); CHLORIDE 99 mmol/L (98-107); COSMO 270; CREATININE 1.2 mg/dL (0.7-1.2); ESTIMATED GFR > 60; GLUCOSE 124 mg/dL (70-104); GOT 29 U/L (10-34); GPT 32 U/L (10-44); POTASSIUM 4.8 mmol/L (3.5-5.1); SODIUM 132 mmol/L (136-145); TCO2 21 mmol/L (25-35); TOTAL BILIRUBIN 0.35 mg/dL (0.20-1.00); TOTAL PROTEIN 6.4 g/dL (6.3-8.3)
--- NOTE | 2019-05-13 09:10 | PROGRESS NOTE ---
DATE: 05/13/2019 SUBJECTIVE: The patient says he is feeling a little bit better. He still has some soreness. OBJECTIVE: Temperature 97.4 degrees Fahrenheit, pulse 56, respirations 16, and blood pressure 116/71 HEENT: Normocephalic. EOMS intact. PERRLA. Throat clear. Lungs: Clear to auscultation and percussion without rhonchi, rales, or wheezes. Heart: Regular rate and rhythm without murmurs, gallops, or friction rubs Abdomen: Still a little tender with active bowel sounds. Neurologic: Exam intact grossly. LABORATORY: White count is down to 10,690. Hemoglobin 12.7, this is a big improvement. Two days [place] [address]. Three days ago, it was 21,170. ASSESSMENT: 1. Chest pain. Cardiac workup is negative. 2. Status post cholecystectomy for cholecystitis and cholelithiasis. 3. Bile leak. 4. Biloma now drained. 5. Hypoxic respiratory distress improved. 6. Bipolar illness. 7. Hyperlipidemia. PLAN: Continue support. Patient does seem to be improving. cc: Shravan Urbina Jr, MD MTDDee
[2019-05-13] MEDS: MONOPRIL PO SCH ×2 (10:25→21:55)
[2019-05-13] MEDS: ASPIRIN EC PO SCH (10:25)
[2019-05-13] MEDS: NORVASC PO SCH (10:25)
[2019-05-13] MEDS: MYCELEX TROCHE PO SCH ×5 (10:25→21:55)
[2019-05-13] MEDS: FLOMAX PO SCH (10:27)
[2019-05-13] MEDS: NORCO-10 PO PRN ×3 (11:08→22:39)
--- NOTE | 2019-05-13 21:09 | INFECTIOUS DISEASE PROGRESS NO ---
DATE: 05/13/2019 PRESENT ILLNESS: Mr. Dorsey is status post laparoscopic cholecystectomy with a bile leak peritonitis. He has had 2 MAIDA drains inserted and those have been removed. Right now, there is an Accordion drain in place to the subhepatic biloma. He also has an oral candidiasis and the likelihood of pneumonia, based on his elevated procalcitonin. MEDICATIONS: Today is day 3 of meropenem 2 g IV every 8 hours. He is also receiving nystatin swish and swallow. PHYSICAL EXAMINATION: Vital Signs: Temperature is 97.5 degrees, pulse rate 62, respiratory rate 16, blood pressure 123/78, O2 saturation is 95% on room air. General: This is a somewhat ill- appearing, middle-aged gentleman. He is lying in bed, currently in no acute distress. HEENT: Atraumatic, normocephalic. Oral mucous membranes are pink and moist. Conjunctivae are pink. Neck: Supple. Trachea is midline. Respiratory: Lung sounds are clear in the upper lobes, diminished in the bases bilaterally. No work of breathing is noted. Cardiovascular: Heart rate and rhythm are regular. Normal sinus rhythm on the monitor. Abdomen: Soft, distended and tender with areas of christelle open to air as well as dressings and a right upper quadrant Accordion drain, which has sanguinous drainage noted. Bowel sounds are audible. MAIDA drains have been removed and dressings are in place to the sites. Neurologic: He is awake, alert, oriented, and able to move around in the bed independently. LABORATORY AND X-RAY: Today his white count is 10.69, hemoglobin 12.7, platelet count 512,000, creatinine is 1.2. Estimated GFR is greater than 60. AST 29, ALT 32, alkaline phosphatase 111, total bilirubin 0.35. His previous procalcitonin was 0.39. So far, the abdominal routine culture of the subphrenic biloma shows no growth on the preliminary report. No imaging reports today. ASSESSMENT AND PLAN: Mr. Dorsey is being treated for a bile peritonitis and has had subphrenic drain inserted into a biloma. Today, his leukocytosis has normalized. We will recheck a CBC in the morning. There is also the possibility of a pneumonia based on his procalcitonin. We will check his chest x-ray tomorrow in the department. He is also receiving Mycelex joseph for his oral candidiasis which we will continue. At this point, he still is feeling fairly rough and does not feel he is ready to go home. We will continue his meropenem as ordered. These plans have been discussed with and recommended by Dr. Curry. COMORBIDITIES: For Mr. Dorsey include a stroke history and bipolar disorder. Dictated by KULWINDER Shields for Kranthi Curry MD cc: MD Shravan Maurer Jr, MD MTDD
[2019-05-13] MEDS: CRESTOR PO SCH (21:55)
[2019-05-13] MEDS: TRICOR PO SCH (21:56)
[2019-05-13] MEDS: FLEET ENEMA PR SCH (21:56)
[2019-05-14] MEDS: NORCO-10 PO PRN ×3 (06:21→22:01)
[2019-05-14] MEDS: PROTONIX PO SCH (06:21)
[2019-05-14] MEDS: MERREM 2 GM in NS 100 ML IV SCH ×3 (06:48→22:00)
[2019-05-14 07:06] LABS: BASO# 0.09 X1000 (0.0-0.2); BASO% 0.8 % (0.0-0.8); EOS# 0.65 X1000 (0.0-0.7); HEMATOCRIT 41.2 % (42.0-52.0); HEMOGLOBIN 13.4 g/dL (14.0-18.0); IMM GRAN# 0.04 X1000 (0.0-0.04); IMM GRAN% 0.4 % (0.0-0.5); LYMPH# 1.36 X1000 (1.2-3.4); LYMPH% 12.6 % (20.5-51.1); MCH 30.2 PG (27-31); MCHC 32.5 g/dL (33-37); MCV 92.8 FL (81-99); MONO# 0.88 X1000 (0.11-0.59); MONO% 8.1 % (1.7-9.3); MPV 10.4 FL (7.4-10.4); NEUT# 7.78 X1000 (1.4-6.5); NEUT% 72.1 % (42.2-75.2); PLT 676 X1000 (130-400); RBC 4.44 XMIL (4.7-6.1); RDW 13.6 % (11.5-14.5)
[2019-05-14 07:14] LABS: AGAP 10; BUN 21 mg/dL (8-22); CALCIUM 9.1 mg/dL (8.8-10.2); CHLORIDE 102 mmol/L (98-107); COSMO 280; CREATININE 1.2 mg/dL (0.7-1.2); ESTIMATED GFR > 60; GLUCOSE 115 mg/dL (70-104); POTASSIUM 4.4 mmol/L (3.5-5.1); SODIUM 138 mmol/L (136-145); TCO2 26 mmol/L (25-35)
--- NOTE | 2019-05-14 08:50 | Diag Imaging Result Doc PS360 ---
EXAM: CHEST-2 VIEWS 05/14/2019 HISTORY: pneumonia TECHNIQUE: AP upright and lateral chest COMMENT: There is blunting of the right costophrenic angle and elevation of the hemidiaphragm. There is apparent atelectasis over the right base. This was also the case on 05/11/2019. IMPRESSION: Atelectasis versus pneumonia in the right lower lobe with right pleural effusion. Chronic elevation of the right hemidiaphragm. Electronically signed by Shravan Regan 05/14/2019 8:48 AM
--- NOTE | 2019-05-14 08:59 | PROGRESS NOTE ---
DATE: 05/14/2019 SUBJECTIVE: Patient started having a little shortness of breath earlier this morning. He is down now for a chest x-ray, and I examined him in the x-ray department. He has not had any cough. The only other complaint he had was he had to have several sticks to get an IV started. OBJECTIVE: Blood pressure 124/75, respirations 16, pulse 65, and temperature 98.9 degrees Fahrenheit. Oxygen saturation on room air was 100% at 4:00 in the morning and 98% at 8:00, but the nurse did place oxygen on him because of complaint shortness of breath.HEENT: Normocephalic. EOMs intact. PERRLA. Throat clear. Lungs: Sound clear to auscultation and percussion without rhonchi, rales, or wheezes. Heart: Regular rate and rhythm without murmurs, gallops, or friction rubs. Abdomen: Soft with some mild tenderness as he has had since his surgery and before. Neurological: Intact grossly. [place]: [place] [address], hemoglobin 13.4, and hematocrit 41.2. BMP is essentially normal with a 1.2 creatinine. ASSESSMENT: 1. Chest pain. Cardiac workup negative. 2. Status post cholecystectomy with a bile leak. 3. Bile peritonitis. 4. Acute cholecystitis resolved. 5. Cholelithiasis resolved. 6. Oral candidiasis. 7. Shortness of breath. 8. Status post ERCP and stent placement. 9. Status post cerebrovascular accident. 10. Bipolar illness. PLAN: We will get chest x-ray to rule out pneumonia. We will get a D-dimer. cc: Shravan Urbina Jr, MD
[2019-05-14] MEDS: ASPIRIN EC PO SCH (10:04)
[2019-05-14] MEDS: NORVASC PO SCH (10:04)
[2019-05-14] MEDS: MONOPRIL PO SCH ×2 (10:04→22:00)
[2019-05-14] MEDS: MYCELEX TROCHE PO SCH ×5 (10:04→22:01)
[2019-05-14] MEDS ORDERED: NS 250 ML ONE (10:29)
[2019-05-14] MEDS ORDERED: LOVENOX SUBQ SCH (10:30)
[2019-05-14 11:11] LABS: INR 1.2; PROTIME 15.4 Seconds (11.0-16.0)
--- NOTE | 2019-05-14 13:00 | INFECTIOUS DISEASE PROGRESS NO ---
DATE: 05/14/2019 PRESENT ILLNESS: The patient had a bile leak following his laparoscopic cholecystectomy which resulted in bile peritonitis. On x-ray today he has a right lower lobe infiltrate versus atelectasis. The patient also has oral candidiasis. MEDICATIONS: This is day 4 of treatment with meropenem. The patient also has Mycelex troches for his oral candidiasis. PHYSICAL EXAMINATION: Vital Signs: Temperature is 98.9 degrees, pulse 65, respirations 16, blood pressure 124/75. General: This is an ill-appearing middle-aged male. He is in no acute distress and he looks much better than he did, but he still looks ill. Head/eyes/ears/nose/throat: He can hear my spoken words and see near objects. He has a little bit of white coating of his tongue. Neck: No pain with movement. Lungs: Clears to auscultation. Cardiovascular: Heart rate is regular. Abdomen: Soft. The incision sites are healing well. There is a drain still present in the right side of the abdomen. Thorax: The patient had a subclavian catheter in place. It has been removed and the site is not erythematous or purulent. Neurologic: The patient is alert. He can move his extremities. There is no tremor. LAB AND X-RAY: The patient's chest x-ray shows a right lower lobe pneumonia versus atelectasis. The patient's CBC shows a white count of 10,080, hemoglobin 13.4, and platelet count 676,000. Creatinine is 1.2. GFR is greater than 60. ASSESSMENT AND PLAN: Patient has bile peritonitis for which 1 drain remains in the abdomen. He has a possible right lower lobe pneumonia versus atelectasis. I am going to continue with his meropenem because when it was started, the patient had a leukocytosis and since starting meropenem, the white blood cell count is normal. COMORBIDITIES: The patient previously had a stroke. He has a bipolar disorder and he, as mentioned above, underwent a laparoscopic cholecystectomy. cc: MD Shravan Maurer Jr, MD
--- NOTE | 2019-05-14 13:09 | Diag Imaging Result Doc PS360 ---
EXAM: LUNG SCAN / VQ 05/14/2019 HISTORY: r/o VTE TECHNIQUE: Ventilation/perfusion lung scan, 39 mCi of technetium 99m DTPA aerosol and 5.6 mCi of technetium 99m MAA intravenously. COMMENT: There is no evidence of ventilation/perfusion mismatch. No perfusion defects are present. IMPRESSION: Normal study. Electronically signed by Shravan Regan 05/14/2019 1:07 PM
[2019-05-14] MEDS: FLOMAX PO SCH (13:18)
[2019-05-14] MEDS: D5 1/2 NS + KCL 20 MEQ 1,000 ML IV SCH ×2 (13:18→13:23)
[2019-05-14] MEDS: LOVENOX SUBQ SCH (13:48)
[2019-05-14] MEDS: CRESTOR PO SCH (22:00)
[2019-05-14] MEDS: TRICOR PO SCH (22:00)
[2019-05-14] MEDS: FLEET ENEMA PR SCH (22:01)
[2019-05-14] MEDS: MORPHINE IV PRN (23:39)
[2019-05-15] MEDS: LOVENOX SUBQ SCH ×2 (01:22→09:39)
[2019-05-15] MEDS: PROTONIX PO SCH (06:29)
[2019-05-15] MEDS: MERREM 2 GM in NS 100 ML IV SCH ×3 (06:30→21:45)
[2019-05-15] MEDS: NORCO-10 PO PRN (06:32)
[2019-05-15 06:43] LABS: BASO# 0.09 X1000 (0.0-0.2); BASO% 0.8 % (0.0-0.8); EOS# 0.81 X1000 (0.0-0.7); EOS% 7.2 % (0.0-10.0); HEMATOCRIT 39.2 % (42.0-52.0); HEMOGLOBIN 12.7 g/dL (14.0-18.0); IMM GRAN# 0.03 X1000 (0.0-0.04); IMM GRAN% 0.3 % (0.0-0.5); LYMPH# 2.21 X1000 (1.2-3.4); LYMPH% 19.7 % (20.5-51.1); MCHC 32.4 g/dL (33-37); MCV 92.5 FL (81-99); MONO# 0.99 X1000 (0.11-0.59); MONO% 8.8 % (1.7-9.3); MPV 10.4 FL (7.4-10.4); NEUT# 7.07 X1000 (1.4-6.5); NEUT% 63.2 % (42.2-75.2); PLT 675 X1000 (130-400); RBC 4.24 XMIL (4.7-6.1); RDW 13.4 % (11.5-14.5)
[2019-05-15 07:23] LABS: AGAP 10; BUN 20 mg/dL (8-22); CALCIUM 8.4 mg/dL (8.8-10.2); CHLORIDE 98 mmol/L (98-107); COSMO 269; CREATININE 1.1 mg/dL (0.7-1.2); ESTIMATED GFR > 60; GLUCOSE 104 mg/dL (70-104); POTASSIUM 4.4 mmol/L (3.5-5.1); SODIUM 133 mmol/L (136-145); TCO2 25 mmol/L (25-35)
[2019-05-15] MEDS: NORVASC PO SCH (09:03)
[2019-05-15] MEDS: ASPIRIN EC PO SCH (09:04)
[2019-05-15] MEDS: MYCELEX TROCHE PO SCH ×5 (09:04→21:43)
[2019-05-15] MEDS: MONOPRIL PO SCH ×2 (09:04→21:43)
--- NOTE | 2019-05-15 10:48 | PROGRESS NOTE ---
DATE: 05/15/2019 SUBJECTIVE: The patient still has a little shortness of breath. He has oxygen on now. He developed shortness of breath yesterday. We did a VQ scan and that was normal. His D-dimer was elevated. We did venous flow studies of his lower extremities and those were normal as well. Chest x-ray shows either right lower lobe atelectasis or early pneumonia though the lungs sounded clear to auscultation yesterday and today. OBJECTIVE: Vital Signs: Blood pressure is 177/94, respirations 18, pulse 72, and temperature 98.6 degrees Fahrenheit. HEENT: Normocephalic. EOMs intact. PERRLA. Lungs: Clear to auscultation and percussion without rhonchi, rales, or wheezes. Heart: Regular rate and rhythm without murmurs, gallops, clicks, or rubs. Abdomen: Soft. Normoactive bowel sounds. No organomegaly or tenderness. Neurological: Exam is intact grossly. LABORATORY DATA: White count is 11,200, hemoglobin 12.7, and hematocrit 39.2. ASSESSMENT: 1. Chest pain. Cardiac workup is negative. 2. Acute cholecystitis with cholelithiasis. 3. Status post cholecystectomy. 4. Status post bile leak. 5. Status post endoscopic retrograde cholangiopancreatography with stent placement. 6. Pneumonia. 7. Peritonitis from bile, now improving. 8. Bipolar illness. 9. Elevated D-dimer but cannot find a clot. PLAN: We will continue care. cc: Shravan Urbina Jr, MD
[2019-05-15] MEDS: FLOMAX PO SCH (13:19)
[2019-05-15] MEDS: D5 1/2 NS + KCL 20 MEQ 1,000 ML IV SCH ×3 (13:22→16:30)
--- NOTE | 2019-05-15 18:13 | Extremity Venous Study ---
PROCEDURE NAME: Venous U/S Bilateral Legs - 05/14/2019 REQUESTING PHYSICIAN: Dr. hSravan Urbina. FIRE AND SAFETY HELPER: Steve. INDICATIONS: Rule out DVT. EQUIPMENT: [employer] Vivid E9 ultrasound system with a 9LD transducer. FINDINGS: Images of bilateral lower extremity venous systems were obtained in both sagittal and transverse planes. Doppler was used to evaluate veins for spontaneity, phasicity, respiratory excursion, and digital augmentation. There appears to be no obvious superficial or deep venous thrombosis. Appears to be normal flow in the veins. INTERPRETATION: Essentially normal bilateral lower extremity venous study. cc: MD Shravan Toscano Jr, MD
--- NOTE | 2019-05-15 18:52 | GASTROENTEROLOGY PROGRESS NOTE ---
DATE: 05/15/2019 SUBJECTIVE: Patient reports some shortness of breath. He did have his right drain removed. Recent liver function tests on 05/13 were normal. The patient had an ERCP on 04/30/2019 with stent placement. OBJECTIVE: Vital Signs: Temperature 97.7 degrees, pulse 72, respirations 18, blood pressure 130/82. General: The patient is awake and alert. He is having some shortness of breath. Abdomen: With dressing intact where the drain was removed. Otherwise soft with some tenderness. LABORATORY: Hematology. WBC 11.20, hemoglobin 12.7, hematocrit 39.2, MCV 92.5, platelets 675,000. Chemistry, sodium 133, potassium 4.4, chloride 98, CO2 25, BUN 20, creatinine 1.1, glucose 104, calcium 8.4. Liver function tests on 05/13/2019 were normal. ASSESSMENT AND PLAN: 1. Recent cholecystectomy and bile leak. 2. Recent ERCP with stent placement on 04/30/2019. 3. Peritonitis. His drains have been removed. 4. Shortness of breath, pneumonia. Continue current antibiotics and respiratory management. He will need repeat ERCP in approximately 6 weeks. I recommended he follow up with us as an outpatient and we will schedule the repeat procedure. GI will sign off for now. Please reconsult if needed. I have discussed this case with Dr. Abernathy. Dictated by KULWINDER Durant for Virgilio Abernathy MD cc: KULWINDER Orourke MD Roger H. Moss Jr, MD
--- NOTE | 2019-05-15 19:24 | INFECTIOUS DISEASE PROGRESS NO ---
DATE: 05/15/2019 PRESENT ILLNESS: Mr. Dorsey is being treated for a bile leak status post laparoscopic cholecystectomy with a bile peritonitis. There was also a right lower lobe pneumonia versus atelectasis on the x-ray from yesterday. The patient also has a oral candidiasis which is improving. MEDICATIONS: He is receiving meropenem 2 g IV every 8 hours. Today is day 6 of that medication. PHYSICAL EXAMINATION: Vital Signs: Temperature is 98.1 degrees, pulse rate 88, respiratory rate 17, blood pressure 177/94, O2 saturation is 98% on room air. General: This is a somewhat ill- appearing, middle-aged gentleman. He is sitting up in bed, currently in no acute distress. HEENT: Atraumatic, normocephalic. Oral mucous membranes are pink and moist. There is still a mild amount of white coating to his tongue but that is improving. Conjunctivae are pink. Neck: Supple. Trachea is midline. Cardiovascular: Heart rate and rhythm are regular. Normal sinus rhythm on the monitor. Respiratory: Lung sounds are bilaterally clear to auscultation in the upper and middle lobes. Diminished in the bases. No work of breathing is noted. Abdomen: Soft, round, and mildly tender to the incisional sites. All the drains have been removed and the christelle have been removed from the incisions. There is no noted erythema or drainage. There is a dressing to the right abdomen which was not removed. Integumentary: There is a PICC line in place to the left upper arm. The site is without edema, erythema, or drainage. Neurologic: He is awake, alert, oriented, and able to move all extremities in the bed independently. LABORATORY AND X-RAY: Today, his white count is 11.2, hemoglobin 12.7, platelet count 675,000. Creatinine is 1.1. Estimated GFR is greater than 60. Yesterday, he did have a V/Q lung scan that was a normal study. ASSESSMENT AND PLAN: Mr. Dorsey is being treated for a bile peritonitis. All of his drains have been removed and he is somewhat better today. However, he is still feeling rough with some abdominal pain and general fatigue. For now, the plan is to continue his meropenem as ordered every 8 hours. There is a mild leukocytosis which we will continue to monitor. At this point, they are looking for a rehab bed for him. After discussing the case with Dr. Curry, he is fine with the patient receiving meropenem 2 g IV every 12 hours once he is discharged to rehab. For now, we will continue the every 8 hours as ordered and will recheck his lab work for Saturday. These plans have been discussed with and recommended by Dr. Curry. COMORBIDITIES: For Mr. Dorsey include a previous stroke and bipolar disorder. Dictated by KULWINDER Shields for Kranthi Curry MD cc: MD Shravan Maurer Jr, MD MTDD
[2019-05-15] MEDS: FLEET ENEMA PR SCH (21:43)
[2019-05-15] MEDS: TRICOR PO SCH (21:43)
[2019-05-15] MEDS: CRESTOR PO SCH (21:43)
[2019-05-16] MEDS: NORCO-10 PO PRN (04:29)
[2019-05-16] MEDS: MERREM 2 GM in NS 100 ML IV SCH ×4 (04:30→21:28)
[2019-05-16 06:10] LABS: URINE SOURCE VOIDED
[2019-05-16 07:06] LABS: BASO# 0.09 X1000 (0.0-0.2); BASO% 0.8 % (0.0-0.8); EOS# 0.64 X1000 (0.0-0.7); EOS% 5.5 % (0.0-10.0); HEMATOCRIT 40.7 % (42.0-52.0); HEMOGLOBIN 13.6 g/dL (14.0-18.0); LYMPH# 1.68 X1000 (1.2-3.4); LYMPH% 14.6 % (20.5-51.1); MCH 30.6 PG (27-31); MCHC 33.4 g/dL (33-37); MCV 91.7 FL (81-99); MONO# 0.69 X1000 (0.11-0.59); MPV 10.3 FL (7.4-10.4); NEUT# 8.44 X1000 (1.4-6.5); NEUT% 73.1 % (42.2-75.2); PLT 769 X1000 (130-400); RBC 4.44 XMIL (4.7-6.1); RDW 13.3 % (11.5-14.5); WBC 11.54 X1000 (4.8-10.8)
[2019-05-16 07:09] LABS: BILIRUBIN URINE NEGATIVE (NEGATIVE); BLOOD URINE LARGE (NEGATIVE); COLOR BROWN; GLUCOSE URINE NEGATIVE (NEGATIVE); KETONE URINE TRACE mg/dL (NEGATIVE); LEUKOCYTES URINE SMALL (NEGATIVE); NITRITE URINE NEGATIVE (NEGATIVE); PH URINE 6.5; PROTEIN URINE 100 mg/dL (NEGATIVE); SP GRAVITY URINE 1.012; TURBIDITY URINE TURBID (CLEAR); UR EPITHELIAL CELLS <10 /HPF (<10); URINE BACTERIA NEGATIVE /HPF; URINE RBC TNTC /HPF (<10); URINE WBC 20-40 /HPF (<10); UROBILINOGEN URINE NORMAL (NORMAL)
[2019-05-16 07:58] LABS: AGAP 13; BUN 19 mg/dL (8-22); CALCIUM 8.9 mg/dL (8.8-10.2); CHLORIDE 99 mmol/L (98-107); COSMO 277; CREATININE 1.1 mg/dL (0.7-1.2); ESTIMATED GFR > 60; GLUCOSE 143 mg/dL (70-104); POTASSIUM 4.4 mmol/L (3.5-5.1); SODIUM 136 mmol/L (136-145); TCO2 24 mmol/L (25-35)
[2019-05-16 08:12] LABS: EOS 6 % (1-10); LYMPHS 12 % (21-51); MONO 8 % (1-9); SEGS 74 % (42-75)
[2019-05-16 08:54] LABS: URINE CASTS NONE SEEN; URINE CRYSTALS NONE SEEN; URINE SMALL ROUND CELLS NONE SEEN; URINE YEAST NONE SEEN
[2019-05-16] MEDS: MONOPRIL PO SCH ×2 (08:54→21:27)
[2019-05-16] MEDS: PROTONIX PO SCH (08:55)
[2019-05-16] MEDS: NORVASC PO SCH (08:55)
[2019-05-16] MEDS: ASPIRIN EC PO SCH (08:55)
[2019-05-16] MEDS: MYCELEX TROCHE PO SCH ×5 (08:55→21:27)
[2019-05-16] MEDS: LOVENOX SUBQ SCH (10:17)
--- NOTE | 2019-05-16 11:40 | PROGRESS NOTE ---
DATE: 05/16/2019 SUBJECTIVE: I am seeing Mr. Dorsey as Dr. Urbina is off this weekend. The patient is doing a little better today. He seems to be upbeat and improving. No specific complaints. OBJECTIVE: Vital signs: Afebrile, pulse 74, respirations 20, blood pressure 151/77, O2 saturation room air 100%. CV: RRR. Lungs: Fairly clear. Abdomen: Soft, active bowel sounds. Extremities: No calf tenderness, cords, or edema. Neurologic: Nonfocal. LAB DATA: Sodium 136, potassium 4.4, chloride 99, CO2 24, BUN 19, creatinine 1.1, calcium 8.9. White count 11.5, hemoglobin 13.6, platelets 769. [*]urine today shows large blood, nitrite negative, leukocytes small, 20-40 WBCs, too numerous to count RBCs. ASSESSMENT: 1. History of cholecystitis with cholelithiasis now status post cholecystectomy with bile leak and stent placement per endoscopic retrograde cholangiopancreatography. 2. Right pneumonia. 3. Bipolar disease. 4. Hypertension. 5. Thrush. PLAN: Continue antihypertensives, prophylactic Lovenox. He is on meropenem per Infectious Disease. He is on Mycelex Cali for his thrush. Continue supportive measures. Fortunately, he appears to be ambulating with physical therapy and improving gradually. cc: MD Shravan Tong Jr, MD
[2019-05-16] MEDS: FLOMAX PO SCH (14:07)
[2019-05-16] MEDS: D5 1/2 NS + KCL 20 MEQ 1,000 ML IV SCH (16:27)
[2019-05-16] MEDS: CRESTOR PO SCH (21:27)
[2019-05-16] MEDS: TRICOR PO SCH (21:27)
[2019-05-16] MEDS: FLEET ENEMA PR SCH (21:28)
[2019-05-17] MEDS: MERREM 2 GM in NS 100 ML IV SCH ×3 (05:28→21:23)
[2019-05-17] MEDS: PROTONIX PO SCH (06:08)
[2019-05-17 06:21] LABS: BASO# 0.09 X1000 (0.0-0.2); BASO% 0.9 % (0.0-0.8); EOS# 0.75 X1000 (0.0-0.7); EOS% 7.2 % (0.0-10.0); HEMATOCRIT 38.4 % (42.0-52.0); HEMOGLOBIN 12.4 g/dL (14.0-18.0); IMM GRAN# 0.03 X1000 (0.0-0.04); IMM GRAN% 0.3 % (0.0-0.5); LYMPH% 16.2 % (20.5-51.1); MCHC 32.3 g/dL (33-37); MCV 92.8 FL (81-99); MONO% 7.6 % (1.7-9.3); MPV 10.5 FL (7.4-10.4); NEUT% 67.8 % (42.2-75.2); PLT 626 X1000 (130-400); RBC 4.14 XMIL (4.7-6.1); RDW 13.3 % (11.5-14.5); WBC 10.47 X1000 (4.8-10.8)
[2019-05-17 06:34] LABS: AGAP 11; BUN 18 mg/dL (8-22); CHLORIDE 106 mmol/L (98-107); COSMO 288; GLUCOSE 113 mg/dL (70-104); POTASSIUM 4.6 mmol/L (3.5-5.1); SODIUM 143 mmol/L (136-145); TCO2 26 mmol/L (25-35)
[2019-05-17 06:35] LABS: CALCIUM 8.2 mg/dL (8.8-10.2); CREATININE 1.2 mg/dL (0.7-1.2); ESTIMATED GFR > 60
--- NOTE | 2019-05-17 07:46 | Diag Imaging Result Doc PS360 ---
EXAM: CHEST-2 VIEWS INDICATION: pneumonia TECHNIQUE: 3 views COMPARISON: 05/14/2019 FINDINGS: There has been interval placement of a left PICC line. The tip projecting over the lower SVC in the expected position. There is stable blunting of the right costophrenic angle and elevation of the right hemidiaphragm. The linear opacity at the right lung base appears to have improved slightly suggesting improved atelectasis. There is also minimal linear atelectasis at the left lung base that is approximately stable. No new consolidation is identified. Cardiac silhouette is stable. IMPRESSION: Decrease in the minimal opacity at the right lung base suggesting improved atelectasis. Stable chest, otherwise. Electronically signed by Francis Cook 05/17/2019 7:44 AM
[2019-05-17] MEDS: LOVENOX SUBQ SCH (09:32)
[2019-05-17] MEDS: MONOPRIL PO SCH ×2 (09:32→21:24)
[2019-05-17] MEDS: NORVASC PO SCH (09:32)
[2019-05-17] MEDS: ASPIRIN EC PO SCH (09:33)
[2019-05-17] MEDS: MYCELEX TROCHE PO SCH ×5 (09:33→21:24)
--- NOTE | 2019-05-17 12:04 | PROGRESS NOTE ---
DATE: 05/17/2019 SUBJECTIVE: The patient is eating and ambulating well, feeling better overall. OBJECTIVE: Vital Signs: Afebrile, pulse 77, respirations 20, blood pressure 126/89, O2 saturation on room air is 100%. CV: RRR. Lungs: Maybe minimal decreased breath sounds in the right lung base, otherwise good air movement. Abdomen: Nontender. Extremities: No calf tenderness, cords, or edema. Neurologic: Nonfocal. IMAGING: Chest x-ray today shows decrease in opacity at right lung base. LABORATORY DATA: Sodium 143, potassium 4.6, chloride 106, CO2 of 26, BUN 18, creatinine 1.2, calcium 8.2. White count 10.4, hemoglobin 12.4, platelets 626,000. ASSESSMENT: 1. History of cholecystitis and cholelithiasis, status post cholecystectomy with bile leak and placement of stent via endoscopic retrograde cholangiopancreatography. 2. Right pneumonia, improved. 3. Bipolar disease. 4. Hypertension. 5. Thrush. PLAN: Continue meropenem and current Mycelex troches. Continue prophylaxis of DVT with Lovenox. Supportive measures. Physical therapy. Possible discharge soon, maybe tomorrow if things go well. cc: MD Shravan Tong Jr, MD
[2019-05-17] MEDS: FLOMAX PO SCH (13:25)
[2019-05-17] MEDS: D5 1/2 NS + KCL 20 MEQ 1,000 ML IV SCH (16:25)
[2019-05-17] MEDS: CRESTOR PO SCH (21:24)
[2019-05-17] MEDS: TRICOR PO SCH (21:24)
[2019-05-17] MEDS: FLEET ENEMA PR SCH (21:24)
[2019-05-18] MEDS: PROTONIX PO SCH (06:09)
[2019-05-18] MEDS: MERREM 2 GM in NS 100 ML IV SCH ×2 (06:10→13:10)
[2019-05-18 06:50] LABS: BASO# 0.09 X1000 (0.0-0.2); BASO% 0.9 % (0.0-0.8); EOS# 0.91 X1000 (0.0-0.7); EOS% 9.2 % (0.0-10.0); HEMATOCRIT 39.3 % (42.0-52.0); HEMOGLOBIN 12.8 g/dL (14.0-18.0); LYMPH% 18.2 % (20.5-51.1); MCH 30.2 PG (27-31); MCHC 32.6 g/dL (33-37); MCV 92.7 FL (81-99); MONO# 0.97 X1000 (0.11-0.59); MONO% 9.8 % (1.7-9.3); MPV 10.4 FL (7.4-10.4); NEUT# 6.12 X1000 (1.4-6.5); NEUT% 61.9 % (42.2-75.2); PLT 626 X1000 (130-400); RBC 4.24 XMIL (4.7-6.1); RDW 13.4 % (11.5-14.5); WBC 9.89 X1000 (4.8-10.8)
[2019-05-18 07:08] LABS: AGAP 10; BUN 16 mg/dL (8-22); CALCIUM 8.3 mg/dL (8.8-10.2); CHLORIDE 106 mmol/L (98-107); COSMO 286; CREATININE 1.1 mg/dL (0.7-1.2); ESTIMATED GFR > 60; GLUCOSE 128 mg/dL (70-104); POTASSIUM 4.3 mmol/L (3.5-5.1); SODIUM 142 mmol/L (136-145); TCO2 26 mmol/L (25-35)
[2019-05-18] MEDS: ASPIRIN EC PO SCH (09:18)
[2019-05-18] MEDS: MYCELEX TROCHE PO SCH ×2 (09:18→13:11)
[2019-05-18] MEDS: NORVASC PO SCH (09:19)
[2019-05-18] MEDS: MONOPRIL PO SCH (09:19)
[2019-05-18] MEDS: D5 1/2 NS + KCL 20 MEQ 1,000 ML IV SCH (09:19)
[2019-05-18] MEDS: LOVENOX SUBQ SCH (09:19)
--- NOTE | 2019-05-18 10:21 | DISCHARGE SUMMARY ---
ADMISSION DATE: 04/25/2019 DISCHARGE DATE: 05/18/2019 CONSULTATIONS: Cardiology, Dr. Ramos and Dr. Thomas; infectious disease, Dr. Kranthi Curry; surgeon, Dr. Cruzito Bonilla; GI, Dr. Abernathy; pulmonary, Dr. Brewer and Dr. Anders. FINAL DIAGNOSES: 1. Chest pain. Cardiac workup negative. 2. Acute cholecystitis and chronic cholecystitis with cholelithiasis. 3. Status post cholecystectomy during hospital course. 4. Bile leak. 5. Status post endoscopic retrograde cholangiopancreatography with stent placement. 6. Pneumonia, clearing. 7. Pyuria. 8. Hyperlipidemia. 9. Bipolar illness. 10. Hypertension. 11. He did have oral thrush. 12. Hypoxia. DISCHARGE MEDICATIONS: Will be his home medications plus he will be on IV antibiotics for approximately another week or so. We will find out what Dr. Curry's recommendations are. HISTORY OF PRESENT ILLNESS AND HOSPITAL COURSE: The patient is a 64-year-old, white male who came in with substernal chest tightness with some nausea and vomiting. Cardiovascular workup was negative. Patient has had a CVA in the past so we were concerned about vascular disease but his workup was normal. Did get an ultrasound of his abdomen and found gallstones, acute cholecystitis, and chronic cholecystitis. The patient underwent laparoscopic cholecystectomy. Unfortunately, the patient developed a bile leak. He had to have a consultation with GI for an ERCP and stent placement. He developed what we thought was pneumonia versus atelectasis. Some of his studies would indicate that it was pneumonia in the right lower lobe. It looks more like an atelectasis now so I think that this has cleared considerably. He developed a yeast infection in his mouth. He did have some costochondritis type symptoms early on as well. The patient developed a bile peritonitis and did have a biloma in the gallbladder bed. This was drained. With the bile leak, he did have drains placed at different times. He did become short of breath. With his shortness of breath, initially Dr. Brewer was consulted who felt like he probably had some pneumonia at that time. He was treated and seemed to get better. Then, later, had another episode of shortness of breath. Did a V/Q scan on him that was negative. His D-dimer was elevated. We also did venous flow studies of his lower extremities. All this workup was negative. The shortness of breath went away on its own. The patient has had a hard course because of the bile leak and the complications with from his surgery and his condition but seems to be doing better now. At one time, his white count was 27,000. It is now normal. The patient will go to rehab in [place]. He will stay on some IV antibiotics. It should be noted that his drains have been removed. He will need an ERCP again in about 6 weeks. The patient is on meropenem 2 g IV every 12 hours. His urine did show pyuria. The last culture showed small colony count for yeast. We will get another urinalysis and culture, and treat accordingly. On laboratory, white count is 9890, hemoglobin 12.8. Chemistry profile is essentially normal. 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 Because of that, we have to be careful with his medications. His urinalysis on the still showed 20 to 40 WBCs. We will repeat that today and get a reflex culture. I will see him back in my office when he gets out of rehab. PHYSICAL EXAMINATION: HEENT: He is normocephalic. EOMs intact. PERRLA. Throat clear. Lungs are clear to auscultation and percussion without rhonchi, rales, or wheezes. Chest x-ray shows improvement of what they consider atelectasis, as the radiologist now. Heart: Regular rate and rhythm without murmurs, gallops, or friction rubs. Abdomen: Soft, with a little tenderness where he had his last drain but this is much improved. He is eating and having bowel movements now. Neurological Examination: Intact grossly. The patient's thrush seems to be much improved. cc: Shravan Urbina Jr, MD
[2019-05-18 11:21] VITALS: BP 153/77
[2019-05-18] MEDS: FLOMAX PO SCH (13:11)
[2019-05-18 14:15] LABS: URINE SOURCE CLEAN CATCH
[2019-05-18 14:20] LABS: BILIRUBIN URINE NEGATIVE (NEGATIVE); BLOOD URINE MODERATE (NEGATIVE); COLOR YELLOW; GLUCOSE URINE NEGATIVE (NEGATIVE); KETONE URINE TRACE mg/dL (NEGATIVE); LEUKOCYTES URINE NEGATIVE (NEGATIVE); NITRITE URINE NEGATIVE (NEGATIVE); PROTEIN URINE 30 mg/dL (NEGATIVE); SP GRAVITY URINE 1.013; TURBIDITY URINE CLEAR (CLEAR); UROBILINOGEN URINE 2 mg/dL (NORMAL)
[2019-05-18 14:21] LABS: UR EPITHELIAL CELLS <10 /HPF (<10); URINE BACTERIA NEGATIVE /HPF; URINE RBC TNTC /HPF (<10); URINE WBC <10 /HPF (<10)
== END 2019-05-18 14:05 | DRG 417 ==
LOC: SUPCPDRO → ED 15:39 → 4N 19:41 → ICU 05-01 10:13 → 4N 05-07 08:39
PROVIDERS: ADMIT Emergency Medicine; ATTEND Emergency Medicine